=== PATIENT | female | born 1965 | race African-American/Black ===

== ENCOUNTER 2016-06-20 07:01 | Emergency (ER) | payer OTHER ==
[2016-06-20 07:07] VITALS: PULSE 66; TEMP 97.7
[2016-06-20] MEDS ORDERED: KETOROLAC TROMETHAMINE 60 MG/2 ML VIAL IM ONE (07:41)
[2016-06-20] MEDS ORDERED: KETOROLAC TROMETHAMINE 60 MG/2 ML VIAL ONE (07:47)
--- NOTE | 2016-06-20 07:57 | PDOC ---
History of Present Illness - General Chief Complaint: Pain Stated Complaint: FALL Time Seen by Provider: 06/20/16 07:28 History Source: Patient Exam Limitations: No Limitations - History of Present Illness Initial Comments: 06/20/16 07:50 50-year-old female presents to the ED status post mechanical fall yesterday while at [employer]. Patient states was walking when she had slipped on the skin of the great toe on the floor causing her to fall on her right side. Patient states landed on her hip along with her back and now complaining of hip and knee pain. Patient states is able to ambulate but with difficulty and has not taking anything for the pain. Patient denies previous injury to the affected area, radiation of pain, back pain, chest pain, dizziness or nausea. Patient also denies any difficulty with urination or bowel movements. Occurred: reports: yesterday Severity: reports: moderate Pain Location: reports: lower extremity Method of Injury: Yes: fall Loss of Consciousness: no loss of consciousness Associated Symptoms (Fall): trouble walking Past History - Past Medical History Allergies/Adverse Reactions: Allergies Allergy/AdvReac Type Severity Reaction Status Date / Time codeine [Codeine] Allergy Mild Itching Verified 06/20/16 07:05 POWDER GLOVES Allergy Intermediate Rash Uncoded 06/20/16 07:05 Home Medications: Ambulatory Orders Bismuth/Metronid/Tetracycline [Pylera Capsule] 3 cap PO QID 09/11/15 Nitrofurantoin Monohyd/M-Cryst [Macrobid -] 100 mg PO BID #14 capsule 09/11/15 Anemia: Yes Asthma: No Cancer: Yes (BILATERAL BREAST CA WITH IMPLANTS) Cardiac Disorders: No CVA: No COPD: No CHF: No Dementia: No Diabetes: No GI Disorders: Yes (ACID REFLUX) Disorders: No HTN: No Hypercholesterolemia: No Liver Disease: No Seizures: No Thyroid Disease: No - Surgical History Abdominal Surgery: Yes (HERNIA REPAIR) Appendectomy: No Cardiac Surgery: No Cholecystectomy: No Lung Surgery: No Neurologic Surgery: No Orthopedic Surgery: Yes (ARTHROSCOPY RIGHT KNEE) - Reproductive History Cervical CA: No Dysfunctional Uterine Bleeding: No Ectopic : No Endometrial CA: No Polycystic Ovaries: No Therapeutic (s) & number: No Tubal Ligation: No - Immunization History Immunization Up to Date: Yes - Psycho/Social/Smoking Cessation Hx Anxiety: No Suicidal Ideation: No Smoking Status: No Smoking History: Never smoked Have you smoked in the past 12 months: No Number of Cigarettes Smoked Daily: 0 Information on smoking cessation initiated: No Hx Alcohol Use: No Drug/Substance Use Hx: No Substance Use Type: None Hx Substance Use Treatment: No Patient Lives Alone: No Trauma Specific PMHX - Complaint Specific PMHX Arthritis: No Back Injury: No Neck Injury: No Hx Sacro Iliac Joint Dysfunction: No Review of Systems - Review of Systems Able to Perform ROS?: Yes Constitutional: No: Symptoms Reported Musculoskeletal: Yes: Joint Pain. No: Joint Swelling Integumentary: No: Symptoms Reported Neurological: No: Symptoms reported Endocrine: No: Symptoms Reported Hematologic/Lymphatic: No: Symptoms Reported *Physical Exam - Vital Signs Last Vital Signs Temp Pulse Resp BP Pulse Ox 97.7 F 66 18 111/69 100 06/20/16 07:05 06/20/16 07:05 06/20/16 07:05 06/20/16 07:05 06/20/16 07:05 - Physical Exam General Appearance: Yes: Nourished, Appropriately Dressed. No: Apparent Distress Neck: negative: Tender, Supple, Decreased range of motion Gastrointestinal/Abdominal: positive: Soft. negative: Tenderness Musculoskeletal: negative: Vertebral Tenderness Extremity: positive: Normal Inspection, Normal Range of Motion, Tender (lateral aspect ofhip and anterior pelvis. Full mobility of right knee with no crepitus or deformity) Integumentary: positive: Warm, Moist, Ecchymosis (over right hip and right knee) Neurologic: positive: Motor Strength 5/5 (ambulatory) ED Treatment Course - RADIOLOGY Radiology Studies Ordered: Category Date Time Status HIP & PELVIS-RIGHT [RAD] Stat Radiology 06/20/16 07:42 Ordered Medical Decision Making - Medical Decision Making 06/20/16 08:04 Patient is status post mechanical fall complaining of right hip pain along with right knee pain. Patient exam at tenderness to the right hip with difficulty performing straight leg raise. Patient ordered for hip and pelvis x-ray of the right side. Patient also ordered for Toradol IM. 06/20/16 09:20 X-ray of the hip and pelvis negative for acute findings. Patient likely sustained a strain secondary to a fall and recommend taking Motrin 600 mg every 8 hours for discomfort and apply ice to the affected area for the next 72 hours. *DC/Admit/Observation/Transfer Diagnosis at time of Disposition: Muscle strain - Discharge Dispostion Disposition: HOME Condition at time of disposition: Good - Patient Instructions Printed Discharge Instructions: DI for Groin Strain Additional Instructions: Please take Motrin or Tylenol for discomfort and apply ice to the affected area for the next 2-3 days . follow-up with your PCP as needed. - Post Discharge Activity Work/School Note: Back to Work
[2016-06-20 09:47] VITALS: BP 110/70
== END 2016-06-20 09:45 | disposition home or self-care (01) ==
LOC: JER 07:01
PROC: 3E0233Z Introduction of Anti-inflammatory into Muscle, Percutaneous Approach (ICD-10-PCS; principal; 2016-06-20)
DX: S39.013A Strain of muscle, fascia and tendon of pelvis, initial encounter (principal); W01.0XXA Fall on same level from slipping, tripping and stumbling without subsequent striking against object, initial encounter; Z91.81 History of falling; Y93.89 Activity, other specified; Y92.512 Supermarket, store or market as the place of occurrence of the external cause; Y99.8 Other external cause status; Z85.3 Personal history of malignant neoplasm of breast; D64.9 Anemia, unspecified
CPT/HCPCS: 73523-TC; 99282-25

== ENCOUNTER 2016-07-18 09:23 | Emergency (ER) | payer OTHER ==
[2016-07-18 09:30] VITALS: BP 116/64; PULSE 69; TEMP 98.2; BMI 29.7
--- NOTE | 2016-07-18 10:36 | PDOC ---
History of Present Illness - General Chief Complaint: Pain Stated Complaint: EMPLOYEE, LT SIDE PAIN Time Seen by Provider: 07/18/16 09:57 History Source: Patient Exam Limitations: No Limitations - History of Present Illness Initial Comments: 07/18/16 10:29 Patient is here with complaints of left lower extremity pain. 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 Patient suffers from varicosities but has never been evaluated or treated for Occurred: reports: yesterday Severity: reports: mild Pain Location: reports: lower extremity (left lower extremity) Method of Injury: Yes: unknown Modifying Factors: improves with: None Loss of Consciousness: no loss of consciousness Associated Symptoms (Fall): denies symptoms Past History - Travel Traveled outside of the country in the last 30 days: No Close contact w/someone who was outside of country & ill: No - Past Medical History Allergies/Adverse Reactions: Allergies Allergy/AdvReac Type Severity Reaction Status Date / Time codeine [Codeine] Allergy Mild Itching Verified 07/18/16 09:27 POWDER GLOVES Allergy Intermediate Rash Uncoded 07/18/16 09:27 Home Medications: Ambulatory Orders NK [No Known Home Medication] 07/18/16 Anemia: Yes Asthma: No Cancer: Yes (BILATERAL BREAST CA WITH IMPLANTS) Cardiac Disorders: No CVA: No COPD: No CHF: No Dementia: No Diabetes: No GI Disorders: Yes (ACID REFLUX) Disorders: No HTN: No Hypercholesterolemia: No Liver Disease: No Seizures: No Thyroid Disease: No - Surgical History Abdominal Surgery: Yes (HERNIA REPAIR) Appendectomy: No Cardiac Surgery: No Cholecystectomy: No Lung Surgery: No Neurologic Surgery: No Orthopedic Surgery: Yes (ARTHROSCOPY RIGHT KNEE) - Reproductive History Cervical CA: No Dysfunctional Uterine Bleeding: No Ectopic : No Endometrial CA: No Polycystic Ovaries: No Therapeutic (s) & number: No Tubal Ligation: No - Immunization History Immunization Up to Date: Yes - Psycho/Social/Smoking Cessation Hx Anxiety: No Suicidal Ideation: No Smoking Status: No Smoking History: Never smoked Have you smoked in the past 12 months: No Number of Cigarettes Smoked Daily: 0 Information on smoking cessation initiated: No Hx Alcohol Use: No Drug/Substance Use Hx: No Substance Use Type: None Hx Substance Use Treatment: No Trauma Specific PMHX - Complaint Specific PMHX Arthritis: No Back Injury: No Neck Injury: No Hx Sacro Iliac Joint Dysfunction: No Review of Systems - Review of Systems Able to Perform ROS?: Yes Is the patient limited Palauan proficient: Yes Constitutional: Yes: See HPI. No: Symptoms Reported, Fever, Malaise, Weakness HEENTM: Yes: See HPI. No: Symptoms Reported Respiratory: Yes: See HPI. No: Symptoms reported, Cough, Shortness of Breath, Wheezing Cardiac (ROS): Yes: See HPI. No: Symptoms Reported, Chest Pain Musculoskeletal: Yes: Symptoms Reported, See HPI, Muscle Pain. No: Joint Swelling, Muscle Weakness, Joint Stiffness Integumentary: Yes: Symptoms Reported, See HPI, Bruising (suffers from varicosities bilateral legs ) Neurological: No: Symptoms reported All Other Systems: Reviewed and Negative *Physical Exam - Vital Signs Last Vital Signs Temp Pulse Resp BP Pulse Ox 98.2 F 69 18 116/64 100 07/18/16 09:28 07/18/16 09:28 07/18/16 09:28 07/18/16 09:28 07/18/16 09:28 - Physical Exam General Appearance: Yes: Nourished, Appropriately Dressed. No: Apparent Distress HEENT: positive: STACY, Normal ENT Inspection, Normal Voice, TMs Normal, Pharynx Normal Neck: positive: Supple. negative: Tender Respiratory/Chest: positive: Lungs Clear, Normal Breath Sounds Gastrointestinal/Abdominal: positive: Soft Extremity: positive: Normal Capillary Refill, Normal Inspection, Normal Range of Motion. negative: Tender Integumentary: positive: Normal Color, Warm, Bruising (10cm2 bruise with hematoma to lateral aspect of the left upper calf. Negative muscle belly pain, full range of motion to foot, ambulatory without unsteadiness or tenderness. Vascular intact to foot. Multiple areas of cording and torturous varicosities to bilateral legs past his knees) Neurologic: positive: respiratory care assistant II-XII NML intact, Fully Oriented, Alert, Normal Mood/ Affect, Normal Response, Motor Strength 5/5 *DC/Admit/Observation/Transfer Diagnosis at time of Disposition: Varicose veins of legs - Discharge Dispostion Disposition: HOME Condition at time of disposition: Stable Admit: No - Referrals Referrals: Kadeem Cohen MD [Primary Care Provider] - Jian Taveras MD [Staff Physician] - - Patient Instructions Printed Discharge Instructions: Chronic Venous Insufficiency Additional Instructions: Rest, ice to area on and off for 15 minutes 4-6 times a day Avoid heavy lifting or exercise until pain and swelling is resolved or until further directed Keep area highly elevated to reduce swelling Use splints/Chin wrap as directed Followup with orthopedist in one to 2 days if not improving, if significantly improved may wait one week for followup with orthopedist May use ibuprofen 2-200 mg tablets every 6 hours as needed for pain - Post Discharge Activity Work/School Note: Back to Work
== END 2016-07-18 10:43 | disposition home or self-care (01) ==
LOC: JERFT 09:23
DX: I83.812 Varicose veins of left lower extremity with pain (principal); Z85.3 Personal history of malignant neoplasm of breast; K21.9 Gastro-esophageal reflux disease without esophagitis
CPT/HCPCS: 99281-25

== ENCOUNTER 2016-08-23 08:29 | Emergency (ER) | payer OTHER ==
[2016-08-23 08:33] VITALS: BP 130/71; PULSE 63; TEMP 98; BMI 29.7
--- NOTE | 2016-08-23 09:12 | PDOC ---
History of Present Illness - General Chief Complaint: Pain Stated Complaint: LT FOOT PAIN Time Seen by Provider: 08/23/16 08:54 History Source: Patient Exam Limitations: No Limitations - History of Present Illness Initial Comments: 08/23/16 08:54 Patient is a 50-year-old female past medical history of breast cancer, who presents to the emergency department today complaining of left foot pain. Patient states that her pain began approximately 3 days ago. She states that when she walks she feels like her ankle is going to pop. She denies weakness, gait change. States that she has occasional pins and needles down to the foot. Denies trauma. 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 Past History - Travel Traveled outside of the country in the last 30 days: No Close contact w/someone who was outside of country & ill: No - Past Medical History Allergies/Adverse Reactions: Allergies Allergy/AdvReac Type Severity Reaction Status Date / Time codeine [Codeine] Allergy Mild Itching Verified 08/23/16 08:30 POWDER GLOVES Allergy Intermediate Rash Uncoded 08/23/16 08:30 Home Medications: Ambulatory Orders NK [No Known Home Medication] 07/18/16 Anemia: Yes Asthma: No Cancer: Yes (BILATERAL BREAST CA WITH IMPLANTS) Cardiac Disorders: No CVA: No COPD: No CHF: No Dementia: No Diabetes: No GI Disorders: Yes (ACID REFLUX) Disorders: No HTN: No Hypercholesterolemia: No Liver Disease: No Seizures: No Thyroid Disease: No Other medical history: VARICOSE VEINS - Surgical History Abdominal Surgery: Yes (HERNIA REPAIR) Appendectomy: No Cardiac Surgery: No Cholecystectomy: No Lung Surgery: No Neurologic Surgery: No Orthopedic Surgery: Yes (ARTHROSCOPY RIGHT KNEE) - Reproductive History Cervical CA: No Dysfunctional Uterine Bleeding: No Ectopic : No Endometrial CA: No Polycystic Ovaries: No Therapeutic (s) & number: No Tubal Ligation: No - Immunization History Immunization Up to Date: Yes - Psycho/Social/Smoking Cessation Hx Anxiety: No Suicidal Ideation: No Smoking Status: No Smoking History: Never smoked Have you smoked in the past 12 months: No Number of Cigarettes Smoked Daily: 0 Information on smoking cessation initiated: No Hx Alcohol Use: No Drug/Substance Use Hx: No Substance Use Type: None Hx Substance Use Treatment: No Review of Systems - Review of Systems Able to Perform ROS?: Yes Is the patient limited Korean proficient: No Constitutional: No: Chills, Fever, Weakness Musculoskeletal: Yes: Joint Pain, Joint Swelling. No: Muscle Pain, Muscle Weakness Integumentary: No: Bruising, Erythema, Rash Neurological: Yes: Numbness, Tingling. No: Weakness, Unsteady Gait All Other Systems: Reviewed and Negative *Physical Exam - Vital Signs Last Vital Signs Temp Pulse Resp BP Pulse Ox 98.0 F 63 18 130/71 100 08/23/16 08:30 08/23/16 08:30 08/23/16 08:30 08/23/16 08:30 08/23/16 08:30 - Physical Exam General Appearance: Yes: Nourished, Appropriately Dressed, Other (Sitting on exam bed, breathing easily). No: Apparent Distress Vascular Pulses: Dorsalis-Pedis (R): 2+, Doralis-Pedis (L): 2+ Musculoskeletal: negative: Decreased Range of Motion, Muscle Spasm Extremity: positive: Normal Capillary Refill, Normal Range of Motion, Tender ( TTP over L achilled tendon just proximal to the heel and medial malleolus. Rosa test intact. ), Swelling (mild swelling over the L achilles tendon proximal to the heel), Other (Gross sensation intact. Pt. walking with limp favoring R foot.). negative: Pedal Edema, Erythema Neurologic: positive: digital operations analyst II-XII NML intact, Fully Oriented, Alert, Normal Mood/ Affect, Normal Response, Motor Strength 5/5 Deep Tendon Reflexes: Ankle (L): 2+, Ankle (R): 2+ Medical Decision Making - Medical Decision Making 08/23/16 08:42 Patient is a 50-year-old female who presents with left ankle pain . Given lack of trauma this most likely seems to be a Achilles tendinitis. However given her tenderness to palpation we'll order an ankle x-ray to rule out fracture. 08/23/16 09:26 X-rays negative for fracture. 08/23/16 09:38 We will discharge home at this time. Patient is to wear Chin wrap on affected ankle for support. She is to ice and elevate her ankle when she is resting. Patient is to follow-up with orthopedics within the week. She is also to take ibuprofen as needed for pain. Patient understands all discharge instructions and all questions were answered at this time *DC/Admit/Observation/Transfer Diagnosis at time of Disposition: Achilles tendinitis of left lower extremity - Discharge Dispostion Disposition: HOME Condition at time of disposition: Good Admit: No - Referrals Referrals: Kadeem Cohen MD [Primary Care Provider] - Bruce Sahni MD [Staff Physician] - - Patient Instructions Printed Discharge Instructions: DI for Achilles Tendinopathy Additional Instructions: Your x-ray today was negative for broken bones or sprains. You most likely have achilles tendonitis. Keep your ankle wrapped in an CHIN wrap and elevate your leg above your heart when you are resting. You may ice the area for 20 minute periods to reduce the swelling. Take ibuprofen for the inflammation and pain not to exceed 3g per day. Follow up with orthopedics by the end of the week. There is a referral in the discharge packet. Return to the ED if you have worsening pain, numbness or tingling, cannot walk, or have any changes in your symptoms. - Post Discharge Activity Work/School Note: Back to Work
== END 2016-08-23 09:40 | disposition home or self-care (01) ==
LOC: JERFT 08:29
DX: M76.62 Achilles tendinitis, left leg (principal); Z85.3 Personal history of malignant neoplasm of breast
CPT/HCPCS: 73610-TC-LT; 73630-TC-LT; 99281-25

== ENCOUNTER 2016-09-23 09:00 | Emergency (ER) | payer OTHER ==
[2016-09-23 09:05] VITALS: BMI 30.5
[2016-09-23] MEDS ORDERED: ACETAMINOPHEN 325 MG TABLET (FP) PO ONE (09:34)
[2016-09-23] MEDS ORDERED: SODIUM CHLORIDE 1,000 ML IV STA (09:34)
--- NOTE | 2016-09-23 09:38 | PDOC ---
History of Present Illness - General History Source: Patient Exam Limitations: No Limitations <Vincent Bartlett - Last Filed: 09/23/16 11:30> - History of Present Illness Initial Comments: 09/23/16 11:30 The patient is a 50 year old female with a distant history of breast cancer status post bilateral mastectomy,( last radiation 5 years ago currently in remission ) presents with cough for 2 days. Patient reports body aches, chills and tactile fevers. Patient also reports a greenish productive cough. Patient has taken DayQuil with little relief. Patient denies chest pain or shortness of breath. Denies sick contacts or recent travels. <Higinio Ray - Last Filed: 09/23/16 11:34> - General Chief Complaint: Lightheaded Stated Complaint: DIZZINESS Time Seen by Provider: 09/23/16 09:26 Past History - Past Medical History Anemia: Yes Asthma: No Cancer: Yes (BILATERAL BREAST CA WITH IMPLANTS) Cardiac Disorders: No CVA: No COPD: No CHF: No Dementia: No Diabetes: No GI Disorders: Yes (ACID REFLUX) Disorders: No HTN: No Hypercholesterolemia: No Liver Disease: No Seizures: No Thyroid Disease: No - Surgical History Abdominal Surgery: Yes (HERNIA REPAIR) Appendectomy: No Cardiac Surgery: No Cholecystectomy: No Lung Surgery: No Neurologic Surgery: No Orthopedic Surgery: Yes (ARTHROSCOPY RIGHT KNEE) - Reproductive History Cervical CA: No Dysfunctional Uterine Bleeding: No Ectopic : No Endometrial CA: No Polycystic Ovaries: No Therapeutic (s) & number: No Tubal Ligation: No - Immunization History Immunization Up to Date: Yes - Psycho/Social/Smoking Cessation Hx Anxiety: No Suicidal Ideation: No Smoking Status: No Smoking History: Never smoked Have you smoked in the past 12 months: No Number of Cigarettes Smoked Daily: 0 Hx Alcohol Use: No Drug/Substance Use Hx: No Substance Use Type: None Hx Substance Use Treatment: No <Vincent Bartlett - Last Filed: 09/23/16 11:30> <Higinio Ray - Last Filed: 09/23/16 11:34> - Past Medical History Allergies/Adverse Reactions: Allergies Allergy/AdvReac Type Severity Reaction Status Date / Time codeine [Codeine] Allergy Mild Itching Verified 09/23/16 09:01 POWDER GLOVES Allergy Intermediate Rash Uncoded 09/23/16 09:01 Home Medications: Ambulatory Orders Acetaminophen [Tylenol] 650 mg PO Q4H PRN #20 tablet 09/23/16 Review of Systems - Review of Systems Able to Perform ROS?: Yes Comments:: 09/23/16 11:32 GENERAL/CONSTITUTIONAL: Yes Fever and chills, general body aches. No weakness. HEAD, EYES, EARS, NOSE AND THROAT: No change in vision. No ear pain or discharge. No sore throat. CARDIOVASCULAR: No chest pain or shortness of breath. RESPIRATORY: Yes productive cough No wheezing, or hemoptysis. GASTROINTESTINAL: No nausea, vomiting, diarrhea or constipation. GENITOURINARY: No dysuria, frequency, or change in urination. MUSCULOSKELETAL: No joint or muscle swelling or pain. No neck or back pain. SKIN: No rash NEUROLOGIC: No headache, vertigo, loss of consciousness, or change in strength/ sensation. ENDOCRINE: No increased thirst. No abnormal weight change. HEMATOLOGIC/LYMPHATIC: No anemia, easy bleeding, or history of blood clots. ALLERGIC/IMMUNOLOGIC: No hives or skin allergy. <Higinio Ray - Last Filed: 09/23/16 11:34> *Physical Exam - Vital Signs Last Vital Signs Temp Pulse Resp BP Pulse Ox 97.9 F 61 19 125/75 100 09/23/16 09:02 09/23/16 09:02 09/23/16 09:02 09/23/16 09:02 09/23/16 09:02 <Vincent Bartlett - Last Filed: 09/23/16 11:30> - Vital Signs Last Vital Signs Temp Pulse Resp BP Pulse Ox 97.9 F 61 19 125/75 100 09/23/16 09:02 09/23/16 09:02 09/23/16 09:02 09/23/16 09:02 09/23/16 09:02 - Physical Exam Comments: 09/23/16 09:38 GENERAL: Awake, alert, and fully oriented, in no acute distress HEAD: No signs of trauma EYES: PERRLA, EOMI, sclera anicteric, conjunctiva clear ENT: Auricles normal inspection, hearing grossly normal, nares patent, oropharynx clear without exudates. Moist mucosa NECK: Normal ROM, supple, no lymphadenopathy, JVD, or masses LUNGS: Breath sounds equal, clear to auscultation bilaterally. No wheezes, and no crackles HEART: Regular rate and rhythm, normal S1 and S2, no murmurs, rubs or gallops ABDOMEN: Soft, nontender, normoactive bowel sounds. No guarding, no rebound. No masses EXTREMITIES: Normal range of motion, no edema. No clubbing or cyanosis. No cords, erythema, or tenderness NEUROLOGICAL: Cranial nerves II through XII grossly intact. Normal speech, normal gait SKIN: Warm, Dry, normal turgor, no rashes or lesions noted. <Higinio Ray - Last Filed: 09/23/16 11:34> ED Treatment Course - LABORATORY CBC & Chemistry Diagram: 09/23/16 10:32 09/23/16 10:32 - RADIOLOGY Radiology Studies Ordered: Category Date Time Status CHEST PA & LAT [RAD] Stat Radiology 09/23/16 09:34 Ordered <Vincent Bartlett - Last Filed: 09/23/16 11:30> - LABORATORY CBC & Chemistry Diagram: 09/23/16 10:32 09/23/16 10:32 - RADIOLOGY Radiology Studies Ordered: 09/23/16 10:53 CHEST X RAY PA & LAT Impression: No active disease in the chest Reported by Adal Mckeon <Higinio Ray - Last Filed: 09/23/16 11:34> Medical Decision Making - Medical Decision Making 09/23/16 09:36 A portion of this note was documented by scribe services under my direction. I have reviewed the details of the note, within reason, and agree with the documentation with the following case summary and management plan written by me. Patient treated in the ED. Nursing notes are reviewed and incorporated into the medical decision-making. Vital signs reviewed. Peripheral IV access obtained by the nurse, laboratory studies are drawn and sent, reviewed and interpreted by myself. Vital Signs Temp Pulse Resp BP Pulse Ox 97.9 F 61 19 125/75 100 09/23/16 09:02 09/23/16 09:02 09/23/16 09:02 09/23/16 09:02 09/23/16 09:02 50-year-old female with a distant history of breast cancer status post bilateral mastectomy, last radiation 5 years ago, currently in remission presents with cough for 2 days. Denies sick contacts or recent travels. Patient reports body aches, chills and tactile fevers area reports a greenish productive cough but denies chest pain or shortness of breath. Patient has taken DayQuil with little relief. Came into the ED for further evaluation. I suspect this is likely viral syndrome. The patient overall is nontoxic appearing. However, we'll obtain a chest x-ray to rule out pneumonia and blood work to evaluate for elevated white count. IV fluids and reassess. 09/23/16 11:27 Chest xray reviewed. No acute findings. CBC, BMP 09/23/16 10:32 09/23/16 10:32 CMP hemolyzed. But do not need another specimen. WBC WNL. Likely viral syndrome. Supportive care Follow up with PMD. Pt agrees with plan. I discussed the physical exam findings, ancillary test results and final diagnoses with the patient. I answered all of the patient's questions. The patient was satisfied with the care received and felt comfortable with the discharge plan and treatment plan. The patient will call their primary care physician within 24 hours to arrange follow-up and will return to the Emergency Department with any new, persistant or worsening symptoms. <Vincent Bartlett - Last Filed: 09/23/16 11:30> - Medical Decision Making 09/23/16 11:31 Documentation prepared by Higinio Ray, acting as medical billing coder for Vincent Bartlett MD <Higinio Ray - Last Filed: 09/23/16 11:34> *DC/Admit/Observation/Transfer - Discharge Dispostion Admit: No <Vincent Bartlett - Last Filed: 09/23/16 11:30> - Attestations Scribe Attestion: 09/23/16 09:38 Documentation prepared by Higinio Ray, acting as medical billing coder for Vincent Bartlett MD <Higinio Ray - Last Filed: 09/23/16 11:34> Diagnosis at time of Disposition: Viral syndrome - Discharge Dispostion Disposition: HOME Condition at time of disposition: Stable - Prescriptions Prescriptions: Acetaminophen [Tylenol] 650 mg PO Q4H PRN #20 tablet PRN Reason: Pain/Fever - Referrals Referrals: Kadeem Cohen MD [Primary Care Provider] - - Patient Instructions Printed Discharge Instructions: DI for Viral Syndrome Additional Instructions: Your chest xray reviewed. No evidence of Pneumonia. Drink plenty of fluids and rest. Take 650 mg tylenol every 4 hours as needed for pain/fever. Follow up with your doctor.
[2016-09-23] MEDS ORDERED: ACETAMINOPHEN 325 MG TABLET (FP) ONE (10:08)
[2016-09-23 10:55] LABS: BASOPHIL 0.9 % (0-2.0); EOSINOPHIL 5.9 % (0-4.5); MCH 27.3 pg (25.7-33.7); MCHC 31.8 g/dl (32.0-36.0); MEAN CELL VOLUME 85.7 fl (80-96); MEAN PLT VOLUME 9.6 fl (7.5-11.1); NEUTROPHILS 45.1 % (42.8-82.8); PLATELET COUNT 229 K/MM3 (134-434); RDW 16.3 % (11.6-15.6); WHITE BLOOD COUNT 6.4 K/mm3 (4.0-10.0)
[2016-09-23 11:54] VITALS: BP 122/57; PULSE 59; TEMP 98
== END 2016-09-23 11:53 | disposition home or self-care (01) ==
LOC: JER 09:00
PROC: 3E0337Z Introduction of Electrolytic and Water Balance Substance into Peripheral Vein, Percutaneous Approach (ICD-10-PCS; principal; 2016-09-23)
DX: B34.9 Viral infection, unspecified (principal); Z85.3 Personal history of malignant neoplasm of breast; K21.9 Gastro-esophageal reflux disease without esophagitis; D64.9 Anemia, unspecified
CPT/HCPCS: 36415; 71020-TC; 85025; 99284-25

== ENCOUNTER 2016-11-24 09:43 | Emergency (ER) | payer OTHER ==
[2016-11-24 10:06] VITALS: TEMP 98; BMI 29.2
[2016-11-24] MEDS ORDERED: KETOROLAC TROMETHAMINE 30 MG/1 ML VIAL IVPUSH ONE (11:12)
[2016-11-24] MEDS ORDERED: SODIUM CHLORIDE 1,000 ML IV STA (11:12)
[2016-11-24] MEDS ORDERED: ONDANSETRON 4 MG/2 ML VIAL IVPUSH ONE (11:12)
[2016-11-24] MEDS ORDERED: ONDANSETRON 4 MG/2 ML VIAL ONE (11:31)
[2016-11-24] MEDS ORDERED: KETOROLAC TROMETHAMINE 30 MG/1 ML VIAL ONE (11:31)
--- NOTE | 2016-11-24 11:42 | PDOC ---
History of Present Illness - General Chief Complaint: Lightheaded Stated Complaint: DIZZINESS Time Seen by Provider: 11/24/16 10:18 History Source: Patient Exam Limitations: No Limitations - History of Present Illness Initial Comments: 11/24/16 11:38 50-year-old female presents to the emergency room with complaints of lightheadedness, nausea, upper abdominal pain, and chills. Patient denies history of gallbladder disease, renal colic, pancreatitis, or recent illness. Patient denies headache presently although she had mentioned headache in triage. Patient states it was more lightheadedness while she was sitting down at the table eating a snack. Patient denies visual changes, chest pain, shortness of breath, lower abdominal pain, dysuria, bowel complaints, or lower extremity edema. Timing/Duration: changing over time Severity: moderate Associated Symptoms: reports: denies symptoms, fever/chills, nausea/vomiting. 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) Cardiac Disorders: No CVA: No COPD: No CHF: No Dementia: No Diabetes: No GI Disorders: Yes (ACID REFLUX) Disorders: No HTN: No Hypercholesterolemia: No Liver Disease: No Seizures: No Thyroid Disease: No - Surgical History Abdominal Surgery: Yes (BILATERAL INGUNIAL HERNIA REPAIR) Appendectomy: No Cardiac Surgery: No Cholecystectomy: No Lung Surgery: No Neurologic Surgery: No Orthopedic Surgery: Yes (ARTHROSCOPY RIGHT KNEE) - Reproductive History Cervical CA: No Dysfunctional Uterine Bleeding: No Ectopic : No Endometrial CA: No Polycystic Ovaries: No Therapeutic (s) & number: No Tubal Ligation: No - Immunization History Immunization Up to Date: Yes - Suicide/Smoking/Psychosocial Hx Smoking Status: No Smoking History: Former smoker Have you smoked in the past 12 months: No Number of Cigarettes Smoked Daily: 0 If you are a former smoker, when did you quit?: 6YRS Information on smoking cessation initiated: No Hx Alcohol Use: No Drug/Substance Use Hx: No Substance Use Type: None Hx Substance Use Treatment: No Patient Lives Alone: No Review of Systems - Review of Systems Able to Perform ROS?: Yes Constitutional: Yes: Chills. No: Fever, Loss of Appetite HEENTM: No: Symptoms Reported Respiratory: No: Symptoms reported Cardiac (ROS): Yes: Lightheadedness ABD/GI: Yes: Nausea, Abdominal cramping Neurological: Yes: Dizziness Endocrine: No: Symptoms Reported Hematologic/Lymphatic: No: Symptoms Reported *Physical Exam - Vital Signs Last Vital Signs Temp Pulse Resp BP Pulse Ox 98.0 F 57 L 16 134/75 100 11/24/16 10:01 11/24/16 10:01 11/24/16 10:01 11/24/16 10:01 11/24/16 10:31 - Physical Exam General Appearance: Yes: Nourished, Appropriately Dressed. No: Apparent Distress HEENT: positive: EOMI, STACY (2mm pinpoint), TMs Normal, Pharynx Normal. negative: Pale Conjunctivae Neck: positive: Supple Respiratory/Chest: positive: Lungs Clear, Normal Breath Sounds. negative: Respiratory Distress, Accessory Muscle Use Cardiovascular: positive: Regular Rhythm, Regular Rate. negative: Murmur Gastrointestinal/Abdominal: positive: Normal Bowel Sounds, Soft, Tenderness ( ruq. - murphys. ). negative: Distended, Guarding, Rebound, Mass Musculoskeletal: negative: CVA Tenderness Extremity: positive: Normal Capillary Refill Integumentary: positive: Normal Color, Warm, Moist Neurologic: positive: Motor Strength 5/5 (ambulatory) ED Treatment Course - LABORATORY CBC & Chemistry Diagram: 11/24/16 11:25 11/24/16 11:25 Medical Decision Making - Medical Decision Making 11/24/16 11:42 Patient here with complaints of initial lightheadedness while sitting down eating is not this morning followed by nausea and chills. Patient states now with nausea and right upper quadrant pain and on exam was tender to the right upper quadrant without positive Hutton sign or guarding. Patient ordered for labs including CBC, comp, lipase, urine and EKG accompanied with Protonix, Toradol, Zofran, and IV fluids. 11/24/16 14:15 11/24/16 13:16 Laboratory Tests 11/24/16 11/24/16 11:25 11:25 WBC 5.5 Hgb 12.4 Hct 39.1 Plt Count 197 Neutrophils % 70.9 D Sodium 141 Potassium 4.5 Chloride 107 Carbon Dioxide 26 Anion Gap 8 BUN 8 Creatinine 0.8 Creat Clearance w eGFR > 60 Random Glucose 67 L Calcium 9.5 Total Bilirubin 0.6 AST 29 D ALT 27 D Total Protein 8.6 H Laboratory Tests 11/24/16 11:25 Lipase 135 Patient states feeling much better with no complaints presently. Patient's thoracic spine negative for acute findings. Patient will be discharged home with recommendations to eat small frequent meals. She'll will be given a prescription for Zantac. *DC/Admit/Observation/Transfer Diagnosis at time of Disposition: Abdominal pain Qualifiers: Abdominal location: upper abdomen, unspecified Qualified Code(s): R10.10 - Upper abdominal pain, unspecified; R10.10 - Upper abdominal pain, unspecified - Discharge Dispostion Disposition: HOME Condition at time of disposition: Improved - Referrals Referrals: Kadeem Cohen MD [Primary Care Provider] - - Patient Instructions Printed Discharge Instructions: DI for Abdominal Pain-Adult Additional Instructions: At this time I recommend eating small frequent meals and taking Zantac as prescribed. I also recommend follow-up with your primary care physician notifying him of today's visit. If symptoms return or worsen please go to the nearest ER. - Post Discharge Activity Forms/Work/School Notes: Back to Work
[2016-11-24] MEDS ORDERED: PANTOPRAZOLE SODIUM 40 MG in SODIUM CHLORIDE 100 ML IVPB ONE (11:43)
[2016-11-24] MEDS ORDERED: PANTOPRAZOLE SODIUM 40 MG VIAL ONE (11:46)
[2016-11-24 11:53] LABS: BASOPHIL 0.8 % (0-2.0); EOSINOPHIL 3.4 % (0-4.5); MCH 27.3 pg (25.7-33.7); MCHC 31.7 g/dl (32.0-36.0); MEAN CELL VOLUME 86.2 fl (80-96); MEAN PLT VOLUME 9.1 fl (7.5-11.1); NEUTROPHILS 70.9 % (42.8-82.8); PLATELET COUNT 197 K/MM3 (134-434); RDW 16.2 % (11.6-15.6); WHITE BLOOD COUNT 5.5 K/mm3 (4.0-10.0)
[2016-11-24 11:57] LABS: URINE APPEARANCE CLEAR; URINE BILIRUBIN NEGATIVE (NEGATIVE); URINE BLOOD NEGATIVE (NEGATIVE); URINE COLOR COLORLESS; URINE GLUCOSE (UA) NEGATIVE (NEGATIVE); URINE KETONE NEGATIVE (NEGATIVE); URINE NITRITE NEGATIVE (NEGATIVE); URINE PROTEIN NEGATIVE (NEGATIVE); URINE UROBILINOGEN NEGATIVE mg/dL (0.2-1.0)
[2016-11-24 12:43] LABS: ALBUMIN 3.8 g/dl (3.4-5.0); ANION GAP 8 (8-16); BILIRUBIN,TOTAL 0.6 mg/dL (0.2-1.0); CALCIUM 9.5 mg/dL (8.5-10.1); CO2 26 mmol/L (21-32); CREATININE 0.8 mg/dL (0.55-1.02); GLUCOSE,RANDOM 67 mg/dL (74-106); SGPT/ALT 27 U/L (12-78); TOT PROT 8.6 g/dl (6.4-8.2)
[2016-11-24 12:44] LABS: ALK PHOS 76 U/L (45-117)
[2016-11-24 12:46] LABS: SGOT/AST 29 U/L (15-37)
--- NOTE | 2016-11-24 14:04 | PDOC ---
*Physical Exam - Vital Signs Last Vital Signs Temp Pulse Resp BP Pulse Ox 98.0 F 57 L 16 134/75 100 11/24/16 10:01 11/24/16 10:01 11/24/16 10:01 11/24/16 10:01 11/24/16 10:31 - Physical Exam General Appearance: Yes: Nourished, Appropriately Dressed HEENT: positive: Normal ENT Inspection Respiratory/Chest: positive: Lungs Clear, Normal Breath Sounds. negative: Chest Tender Cardiovascular: positive: Regular Rhythm, Regular Rate, S1, S2 Gastrointestinal/Abdominal: positive: Normal Bowel Sounds, Flat, Soft, Other ( negativemurphy's no cva tenderness.). negative: Tender Musculoskeletal: positive: Normal Inspection. negative: CVA Tenderness Extremity: positive: Normal Capillary Refill, Normal Inspection Integumentary: positive: Normal Color, Dry, Warm Neurologic: positive: Alert, Normal Mood/Affect Heart Score/ECG Review #1 General ECG Interpretation: Sinus Rhythm, Normal Rate (52), Normal Intervals, No acute ischemic changes ED Treatment Course - LABORATORY CBC & Chemistry Diagram: 11/24/16 11:25 11/24/16 11:25 - ADDITIONAL ORDERS Additional order review: Laboratory Results 11/24/16 11/24/16 11/24/16 11:25 11:25 11:25 Sodium 141 Potassium 4.5 Chloride 107 Carbon Dioxide 26 Anion Gap 8 BUN 8 Creatinine 0.8 Creat Clearance w eGFR > 60 Random Glucose 67 L Calcium 9.5 Total Bilirubin 0.6 AST 29 D ALT 27 D Alkaline Phosphatase 76 D Total Protein 8.6 H Albumin 3.8 Lipase 135 Urine Color Colorless Urine Appearance Clear Urine pH 7.0 Urine Protein Negative Urine Glucose (UA) Negative Urine Ketones Negative Urine Blood Negative Urine Nitrite Negative Urine Bilirubin Negative Urine Urobilinogen Negative 11/24/16 11:25 RBC 4.53 MCV 86.2 MCHC 31.7 L RDW 16.2 H MPV 9.1 Neutrophils % 70.9 D Lymphocytes % 20.6 D Monocytes % 4.3 Eosinophils % 3.4 Basophils % 0.8 - Medications Given in the ED: ED Medications Discontinued Medications Generic Name Dose Route Start Last Admin Trade Name Freq PRN Reason Stop Dose Admin Sodium Chloride 1,000 mls @ 1,000 mls/hr 11/24/16 11:12 11/24/16 11:44 Normal Saline - IV 11/24/16 12:11 1,000 mls/hr ASDIR STA Administration Pantoprazole Sodium 40 mg/ 100 mls @ 200 mls/hr 11/24/16 11:43 11/24/16 11:52 Sodium Chloride IVPB 11/24/16 12:12 200 mls/hr ONCE ONE Administration Ketorolac Tromethamine 30 mg 11/24/16 11:12 11/24/16 11:44 Toradol Injection - IVPUSH 11/24/16 11:13 30 mg ONCE ONE Administration Ondansetron HCl 4 mg 11/24/16 11:12 11/24/16 11:45 Zofran Injection IVPUSH 11/24/16 11:13 4 mg ONCE ONE Administration Medical Decision Making - Medical Decision Making 11/24/16 14:02 50 yo F wit h/o gerd here with c/o epigastric pain, burning sensation, nuasea, and feeling lightheaded. no f/c no vomiting. no change to bm. started yesterday. has had in the past. no cp or sob. on exam awake alert lungs clear heart rrr nomrg. abd soft no tenderness. differential gerd,k pancreatitis. gastritis, uti. plan ua labs lipase. pt seen and examined in conjunction with Cat Pruitt. agree with assessment and plan. 11/28/16 08:59 *DC/Admit/Observation/Transfer Diagnosis at time of Disposition: Abdominal pain - Discharge Dispostion Disposition: HOME Condition at time of disposition: Improved - Prescriptions Prescriptions: Ranitidine HCl [Zantac] 150 mg PO DAILY #30 tablet - Referrals Referrals: Kadeem Cohen MD [Primary Care Provider] - - Patient Instructions Printed Discharge Instructions: DI for Abdominal Pain-Adult Additional Instructions: At this time I recommend eating small frequent meals and taking Zantac as prescribed. I also recommend follow-up with your primary care physician notifying him of today's visit. If symptoms return or worsen please go to the nearest ER. - Post Discharge Activity Forms/Work/School Notes: Back to Work
[2016-11-24 14:42] VITALS: BP 142/68; PULSE 60
[2016-11-24 17:07] LABS: URINE LEUK ESTERASE Negative (NEGATIVE)
--- NOTE | 2016-11-25 09:16 | EKG ---
Test Reason : Blood Pressure : / mmHG Vent. Rate : 052 BPM Atrial Rate : 052 BPM P-R Int : 192 ms QRS Dur : 100 ms QT Int : 410 ms P-R-T Axes : 059 026 036 degrees QTc Int : 381 ms SINUS BRADYCARDIA WHEN COMPARED WITH ECG OF 11-SEP-2015 10:02, PREMATURE VENTRICULAR COMPLEXES ARE NO LONGER PRESENT Confirmed by MINNA BUTLER MD ([id number]) on 11/25/2016 9:16:17 AM Referred By: Confirmed By:MINNA BUTLER MD
== END 2016-11-24 14:45 | disposition home or self-care (01) ==
LOC: JER 09:43
PROC: 3E0333Z Introduction of Anti-inflammatory into Peripheral Vein, Percutaneous Approach (ICD-10-PCS; principal; 2016-11-24)
PROC: 3E033GC Introduction of Other Therapeutic Substance into Peripheral Vein, Percutaneous Approach (ICD-10-PCS; 2016-11-24)
PROC: 3E0337Z Introduction of Electrolytic and Water Balance Substance into Peripheral Vein, Percutaneous Approach (ICD-10-PCS; 2016-11-24)
DX: D64.9 Anemia, unspecified (principal); K21.9 Gastro-esophageal reflux disease without esophagitis; Z91.048 Other nonmedicinal substance allergy status; Z87.891 Personal history of nicotine dependence
CPT/HCPCS: 36415; 72070-TC; 80053; 81003; 83690; 85025; 93005; 93010; 99285-25

== ENCOUNTER 2016-12-28 05:02 | Day surgery (SDC) | payer OTHER ==
[2016-12-26 10:18] VITALS: BMI 29.7
--- NOTE | 2016-12-28 10:38 | HP ---
History & Physical Update - History History: Change (see notes) (Painful right second and fifth hammertoes Allergic to Codein) - Physical Physical: No Change (Contracted right second toes and fifth toes. Hyperkeratotic lesions right second distal interphalangeal joint and right fifth proximal interphalangeal joint. Hyperpigmentation and bursitis right second proximal interphalangeal joint.) - Assessment Assessment: No Change (Hammertoes right second and fifth toes) - Plan Plan: No Change (Arthroplasty right second proximal interphalangeal joint and distal interphalangeal joint and right fifth proximal interphalangeal joint. Please refer to primary care physician note for complete history and physical.)
[2016-12-28] MEDS ORDERED: ONDANSETRON 4 MG/2 ML VIAL IVPUSH PRN (11:04)
[2016-12-28] MEDS ORDERED: LACTATED RINGERS SOLUTION 1,000 ML IV SCH (11:15)
[2016-12-28] MEDS ORDERED: MIDAZOLAM HCL 2 MG/2 ML SINGLE DOSE VIAL ONE ×3 (11:30)
[2016-12-28] MEDS ORDERED: LIDOCAINE HCL 1%, 10 MG/ML (20ML VIAL) ONE (11:35)
[2016-12-28] MEDS ORDERED: ceFAZolin SODIUM 1 GM VIAL IVPB ONE (11:35)
[2016-12-28] MEDS ORDERED: PROPOFOL 20 ML ONE (11:36)
[2016-12-28] MEDS ORDERED: BUPIVACAINE HCL/PF 0.25% (2.5MG/ML) 10 ML VIAL IJ ONE (11:37)
[2016-12-28] MEDS ORDERED: ceFAZolin SODIUM 1 GM VIAL ONE (11:50)
[2016-12-28] MEDS ORDERED: DEXAMETHASONE SOD PHOSPHATE 4 MG/1 ML VIAL ONE (12:21)
[2016-12-28] MEDS ORDERED: BUPIVACAINE HCL/PF 0.25% (2.5MG/ML) 10 ML VIAL ONE (12:21)
[2016-12-28] MEDS ORDERED: DEXAMETHASONE SOD PHOSPHATE 4 MG/1 ML VIAL IVPUSH ONE ×2 (12:24→12:34)
--- NOTE | 2016-12-28 12:51 | OP ---
Operative Note - Note: Operative Date: 12/28/16 Pre-Operative Diagnosis: Right second and fifth hammertoes Operation: Arthroplasty right second proximal interphalangeal joint. Arthroplasty right second distal interphalangeal joint. Arthroplasty right fifth proximal interphalangeal joint. Findings: Bursitis and hyperkeratotic lesions over the joints. Surgeon: Alejandra Rahman Anesthesiologist/ORACLE [employer]EE DEVELOPER: Katia Quintanilla MD Anesthesia: MAC Specimens Removed: Head of right second proximal phalanx. Head of right second middle phalanx. Head of right fifth proximal phalanx. Estimated Blood Loss (mls): 1
[2016-12-28 14:46] VITALS: BP 116/65; PULSE 77; TEMP 97.9
--- NOTE | 2016-12-30 19:02 | PATH ---
Surgical Pathology Report Patient Name: ROWENA DE LEÓN [facility]. Rec. #: [id number] /Age/Gender: 1965 (Age: 51) / F Account: [id number] Location: [facility] Taken: 12/28/2016 Received: 12/28/2016 Reported: 12/30/2016 Physicians: Alejandra Rahman DPM Specimen(s) Received A: RIGHT MIDDLE PHALANX B: SECOND TOE PROXIMAL PHALANX C: 5TH TOE PROXIMAL PHALANX Clinical History Hammer toes Final Diagnosis A. PHALANX, RIGHT MIDDLE, ARTHROPLASTY: BONE WITH DEGENERATIVE CHANGES. B. PHALANX, RIGHT, SECOND TOE, PROXIMAL, ARTHROPLASTY BONE WITH DEGENERATIVE CHANGES. C. PHALANX, RIGHT, FIFTH TOE, PROXIMAL, ARTHROPLASTY BONE WITH DEGENERATIVE CHANGES. Electronically Signed Violet Mari M.D. Gross Description A. Received in formalin labeled "right middle phalanx," are 2 cox, irregular portions of bone measuring 0.8 x 0.3 x 0.2 cm and 0.8 x 0.5 x 0.4 cm. The larger portion of bone is bisected and the specimen is entirely submitted in one cassette, following decalcification. B. Received in formalin labeled "second toe proximal phalanx," is a 0.9 x 0.5 x 0.5 cm cox, irregular portion of bone. The specimen is bisected and entirely submitted in one cassette, following decalcification. C. Received in formalin labeled "fifth toe proximal phalanx," is a 0.8 x 0.6 x 0.5 cm cox, irregular portion of bone. The specimen is bisected and entirely submitted in one cassette, following decalcification. 12/29/201612/29/2016
--- NOTE | 2017-01-23 02:39 | OP ---
DATE OF OPERATION: 12/28/2016 SURGEON: Lilian Bañuelos DPM THROW OUT CLERK: None. ANESTHESIOLOGIST: Katia Quintanilla MD PREOPERATIVE DIAGNOSES: 1. Right 2nd hammertoe. 2. Right 5th hammertoe. POSTOPERATIVE DIAGNOSES: 1. Right 2nd hammertoe. 2. Right 5th hammertoe. OPERATION: 1. Arthroplasty of distal interphalangeal joint of the right 2nd toe. 2. Arthroplasty of the proximal interphalangeal joint of the right 2nd toe. 3. Arthroplasty of the proximal interphalangeal joint of the right 5th toe. ANESTHESIA: Local with IV sedation. HEMOSTASIS: Pneumatic ankle tourniquet. ESTIMATED BLOOD LOSS: 1 mL MATERIALS: None. PATHOLOGY: Bone. COMPLICATIONS: None. OPERATIVE PROCEDURE: The patient was brought to the operating room and placed on the operating table in the supine position. A pneumatic ankle tourniquet was then placed on the patient's right ankle. Following IV sedation, local anesthesia was obtained using a 1:1 mixture of 1% lidocaine plain and 0.25% Marcaine plain. Following this, the foot was then scrubbed, prepped, and draped in the usual aseptic manner. An Esmarch bandage was then utilized to exsanguinate the patient's right foot and the tourniquet was inflated. Attention was directed to the 2nd digit where a 2-cm linear longitudinal incision was made over the dorsal aspect of the proximal interphalangeal joint of the digit. The incision was then deepened through the subcutaneous tissues with care to retract all neurovascular structures. All bleeders were cauterized and ligated. A transverse tenotomy and capsulotomy was performed to the proximal interphalangeal joint of the 2nd digit of the right foot. The head of the proximal phalanx was then freed of its soft tissue attachments. A double-action bone cutter was then used to resect the head of the proximal phalanx and was then passed from the operating room table. The phalanx was then smoothed of its rough edges with a bone rasp. The wound was then flushed with copious amounts of sterile saline and the extensor tendon was reapproximated with 4-0 Vicryl. Attention was then directed to the dorsal aspect of the 2nd digit of the distal interphalangeal joint. A 1-cm transverse linear incision was then made over the distal interphalangeal joint of the digit. The incision was then taken through the subcutaneous tissues with care to retract all neurovascular structures. All bleeders were cauterized and ligated. Transverse tenotomy and capsulotomy were performed to the distal interphalangeal joint of the 2nd digit of the right foot. The head of the middle phalanx was then freed of its soft tissue attachment. A double-action bone cutter was then used to resect the head of the middle phalanx and was then passed from the operating room table. The phalanx was then smoothed of its rough edges with a bone rasp. The wound was then flushed with copious amounts of sterile saline and the extensor tendon was reapproximated with 4-0 Vicryl. The skin was reapproximated with 4-0 Nylon over the distal and proximal interphalangeal joints. At this point, attention was then directed to the right 5th digit where 2 converging 2-cm semi-elliptical incisions were made over the proximal interphalangeal joint of the right 5th toe. The incision was deepened and the skin was removed. The incision was then deepened to the subcutaneous tissues with care to retract all vital neurovascular structures. All bleeders were cauterized. Transverse tenotomy and capsulotomy were performed to the proximal interphalangeal joint of the 5th digit of the right foot. The head of the proximal phalanx was then freed of its soft tissue attachment. A double-action bone cutter was then used to resect the head of the proximal phalanx, which was then passed from the operating room table. The phalanx was then smoothed of its rough edges with a bone rasp. The wound was flushed with copious amounts of sterile saline and the extensor tendon was reapproximated with 4-0 Vicryl. The skin was reapproximated using 4-0 nylon. On completion of the procedure, a total of 4-5 mL of a 1:4 mixture of Decadron and 0.5% Marcaine plain was infiltrated around the surgical site. The incisions were dressed with Betadine-soaked Adaptic and covered with sterile compressive dressing such as 4 x 4's and Blake. The tourniquet was then deflated and immediate hyperemia returned to all digits. The foot was then Chin wrapped. The patient tolerated the procedure well and was transferred to the recovery room with all vital signs stable and vascular status intact to the feet. Following postoperative management, the patient was discharged and given instructions and prescriptions, which were discussed prior to the surgery. LILIAN BAÑUELOS DPM [id number]
== END 2016-12-28 14:45 | disposition home or self-care (01) ==
LOC: JASU-SURG 05:02
PROVIDERS: ATTEND Podiatrist Foot Surgery
PROC: 0SRP0JZ Replacement of Right Toe Phalangeal Joint with Synthetic Substitute, Open Approach (ICD-10-PCS; principal; 2016-12-28 10:00)
DX: M20.41 Other hammer toe(s) (acquired), right foot (principal)
CPT/HCPCS: 73630-TC-RT; 84703; 88304-TC; 88311-TC; 94760; 97116-GP

== ENCOUNTER 2017-02-07 21:00 | Emergency (ER) | payer OTHER ==
[2017-02-07] MEDS ORDERED: ALBUTEROL SO4 0.083% IH SOL 2.5 MG/3 ML VIAL.NEB. NEB ONE (21:15)
--- NOTE | 2017-02-07 21:19 | PDOC ---
Rapid Medical Evaluation Chief Complaint: Respiratory Time Seen by Provider: 02/07/17 21:14 Medical Evaluation: Allergies Allergy/AdvReac Type Severity Reaction Status Date / Time codeine [Codeine] Allergy Mild Itching Verified 12/28/16 07:57 POWDER GLOVES Allergy Intermediate Rash Uncoded 12/28/16 07:57 02/07/17 21:15 51 year old female c/o cough and difficulty breath x 3 days." i feel like i have bronchitis." tactile tem[ps PE:Patient alert ox 3. clear breath sounds. Plan; albuterol, chest xray Patient to the ER for further management of care. 02/07/17 21:19 Discharge Disposition - Referrals Referrals: Kadeem Cohen MD [Primary Care Provider] - - Patient Instructions - Post Discharge Activity
[2017-02-07 21:23] VITALS: BP 126/73; PULSE 94; TEMP 99.5
[2017-02-07] MEDS ORDERED: IBUPROFEN 400 MG TABLET (FP) PO ONE ×2 (21:51→22:00)
[2017-02-07] MEDS ORDERED: ALBUTEROL SO4 2.5/IPRATROPIUM 0.5 INH SOL 3 ML VIAL.NEB. NEB ONE ×3 (21:51→22:23)
--- NOTE | 2017-02-07 22:10 | PDOC ---
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 The patient reports to feel congested. She reports a nonproductive cough. She describes the chest pain when coughing to feel like a pressure. Secondary to her symptoms she reports a sore throat and ear pain. She reports intermittent fevers. She reports using NyQuil, DayQuil, and Mucinex for her symptoms, without relief. She reports her symptoms have caused her to no be able to sleep. She denies recent chills or dizziness. She denies recent nausea, vomit, diarrhea or constipation. She denies recent dysuria, frequency, urgency or hematuria. She denies recent chest pain. Allergies: codeine, powder gloves Past surgical history: None reported. Social history: Nonsmoker. Denies EtOH use and recreational drug use. Primary Care Physician: Dr. Kadeem Cohen <Chris Oakes - Last Filed: 02/07/17 22:10> <Jennifer Westfall - Last Filed: 02/07/17 22:48> - General Chief Complaint: Cold Symptoms Stated Complaint: COUGH,PAIN Time Seen by Provider: 02/07/17 21:14 Past History <Chris Oakes - Last Filed: 02/07/17 22:10> - Past Medical History Anemia: Yes Asthma: Yes Cancer: Yes (BILATERAL BREAST CA WITH IMPLANTS 2010) Cardiac Disorders: No CVA: No COPD: Yes CHF: No Dementia: No Diabetes: No GI Disorders: Yes (ACID REFLUX) Disorders: No HTN: No Hypercholesterolemia: No Liver Disease: No Seizures: No Thyroid Disease: No - Surgical History Abdominal Surgery: Yes (BILATERAL INGUNIAL HERNIA REPAIR ~2011) Appendectomy: No Cardiac Surgery: No Cholecystectomy: No Lung Surgery: No Neurologic Surgery: No Orthopedic Surgery: Yes (r knee arthroscopy) - Reproductive History Cervical CA: No Dysfunctional Uterine Bleeding: No Ectopic : No Endometrial CA: No Polycystic Ovaries: No Therapeutic (s) & number: No Tubal Ligation: No - Immunization History Immunization Up to Date: Yes - Suicide/Smoking/Psychosocial Hx Smoking Status: No Smoking History: Former smoker Have you smoked in the past 12 months: No Number of Cigarettes Smoked Daily: 0 If you are a former smoker, when did you quit?: years ago Information on smoking cessation initiated: No Hx Alcohol Use: Yes (occasional) Drug/Substance Use Hx: No Substance Use Type: None Hx Substance Use Treatment: No <Jennifer Westfall - Last Filed: 02/07/17 22:48> - Past Medical History Allergies/Adverse Reactions: Allergies Allergy/AdvReac Type Severity Reaction Status Date / Time codeine [Codeine] Allergy Mild Itching Verified 02/07/17 21:16 POWDER GLOVES Allergy Intermediate Rash Uncoded 02/07/17 21:16 Home Medications: Ambulatory Orders Omeprazole 40 mg PO DAILY 12/26/16 Albuterol Sulfate Inhaler - [Ventolin HFA Inhaler -] 1 - 2 inh PO Q4H #1 inhaler 02/07/17 Azithromycin [Zithromax 250mg Tablets -] 250 mg PO UTDICT #6 tab 02/07/17 Ibuprofen [Motrin -] 600 mg PO TID 02/07/17 Prednisone [Deltasone -] 40 mg PO DAILY #10 tablet 02/07/17 Review of Systems - Review of Systems Able to Perform ROS?: Yes Comments:: 02/07/17 22:10 CONSTITUTIONAL: Present: +Fever +Congestion Absent: no chills, no fatigue EYES: Absent: visual changes ENT: Present: +ear pain + sore throat CARDIOVASCULAR: Absent: chest pain, no palpitations RESPIRATORY: Present: +Cough +SOB when coughing. +Chest pain when coughing GI: Absent: abdominal pain, no nausea, no vomiting, no constipation, no diarrhea GENITOURINARY: Absent: dysuria, no frequency, no hematuria MUSKULOSKELETAL: Present: +Back pain when coughing Absent: no arthralgia, no myalgia SKIN: Absent: rash NEURO: Present: +headache when coughing. All Other Systems: Reviewed and Negative <Chris Oakes - Last Filed: 02/07/17 22:10> *Physical Exam - Vital Signs Last Vital Signs Temp Pulse Resp BP Pulse Ox 99.5 F 94 H 20 126/73 98 02/07/17 21:16 02/07/17 21:16 02/07/17 21:16 02/07/17 21:16 02/07/17 21:16 - Physical Exam Comments: 02/07/17 22:11 GENERAL: Well-appearing, well-nourished. No apparent distress. HEENT: Right tympanic membrane retracted. Left tympanic membrane clear. Normocephalic, atraumatic. PERRL, EOM intact. CARDIOVASCULAR: Normal S1, S2. Regular rate and rhythm. PULMONARY: Clear diminished at bases. ABDOMEN: Soft, non-distended, non-tender. EXTREMITIES: Normal ROM in all four extremities. No gross deformities. SKIN: Warm, dry. No rash NEUROLOGICAL: No focal neurological deficits. <Chris Oakes - Last Filed: 02/07/17 22:10> - Vital Signs Last Vital Signs Temp Pulse Resp BP Pulse Ox 99.5 F 94 H 20 126/73 98 02/07/17 21:16 02/07/17 21:16 02/07/17 21:16 02/07/17 21:16 02/07/17 21:16 <Jennifer Westfall - Last Filed: 02/07/17 22:48> ED Treatment Course - Medications Given in the ED: ED Medications Discontinued Medications Generic Name Dose Route Start Last Admin Trade Name Freq PRN Reason Stop Dose Admin Albuterol/Ipratropium 1 amp 02/07/17 21:51 02/07/17 22:03 Duoneb - NEB 02/07/17 21:52 1 amp ONCE ONE Administration Ibuprofen 800 mg 02/07/17 21:51 02/07/17 22:03 Motrin - PO 02/07/17 21:52 800 mg ONCE ONE Administration <Chris Oakes - Last Filed: 02/07/17 22:10> - Medications Given in the ED: ED Medications Discontinued Medications Generic Name Dose Route Start Last Admin Trade Name Freq PRN Reason Stop Dose Admin Albuterol/Ipratropium 1 amp 02/07/17 21:51 02/07/17 22:03 Duoneb - NEB 02/07/17 21:52 1 amp ONCE ONE Administration Ibuprofen 800 mg 02/07/17 21:51 12/26/17 22:03 Motrin - PO 02/07/17 21:52 800 mg ONCE ONE Administration <JameelprimoJanna jerryecca - Last Filed: 02/07/17 22:48> *DC/Admit/Observation/Transfer - Attestations Scribe Attestion: 02/07/17 22:11 Documentation prepared by Chris Oakes, acting as medical office assistant instructor for Marshall Barrow MD. <Chris Oakes - Last Filed: 02/07/17 22:10> - Discharge Dispostion Admit: No <KhoiJennifer - Last Filed: 02/07/17 22:48> Diagnosis at time of Disposition: Pneumonia Qualifiers: Pneumonia type: due to unspecified organism Laterality: right Lung location: lower lobe of lung Qualified Code(s): J18.1 - Lobar pneumonia, unspecified organism - Discharge Dispostion Disposition: HOME Condition at time of disposition: Stable - Referrals Referrals: Kadeem Cohen MD [Primary Care Provider] - - Patient Instructions Printed Discharge Instructions: DI for Pneumonia -- Adult Additional Instructions: Your x-ray shows a right lower lobe pneumonia. You were prescribed a Z-Edwin. Please take the medication as prescribed. Your also prescribed an albuterol inhaler. You may use this every 4 hours as needed for your symptoms. Your also prescribed prednisone. Please follow the instructions as directed. You may take Tylenol or Motrin as needed for your fevers. Drink plenty of fluids. Please follow up with her primary care doctor within 2-3 days. Return to the emergency department if you have increasing shortness of breath, difficulty breathing, worsening fever, lightheadedness, dizziness, or any changes in your symptoms. - Post Discharge Activity Forms/Work/School Notes: Back to Work
== END 2017-02-07 22:55 | disposition home or self-care (01) ==
LOC: JERFT 21:00
PROC: 3E0F7GC Introduction of Other Therapeutic Substance into Respiratory Tract, Via Natural or Artificial Opening (ICD-10-PCS; principal; 2017-02-07)
PROC: 3E0F7GC Introduction of Other Therapeutic Substance into Respiratory Tract, Via Natural or Artificial Opening (ICD-10-PCS; 2017-02-07)
DX: J18.1 Lobar pneumonia, unspecified organism (principal); J44.9 Chronic obstructive pulmonary disease, unspecified; K21.9 Gastro-esophageal reflux disease without esophagitis; Z85.3 Personal history of malignant neoplasm of breast
CPT/HCPCS: 71020-TC; 99281-25

== ENCOUNTER 2017-04-03 06:44 | Day surgery (SDC) | payer OTHER ==
[2017-03-31 09:01] VITALS: BMI 30.9
[2017-04-03] MEDS ORDERED: LIDOCAINE HCL/PF 2% SDV 5ML VIAL ONE (07:46)
[2017-04-03] MEDS ORDERED: SUCCINYLCHOLINE CHLORIDE 200 MG/10 ML VIAL ONE (07:47)
[2017-04-03] MEDS ORDERED: PROPOFOL 20 ML ONE ×5 (07:47→09:19)
[2017-04-03] MEDS ORDERED: ePHEDrine SULFATE 50 MG/1 ML AMPULE ONE (07:47)
[2017-04-03] MEDS ORDERED: MIDAZOLAM HCL 2 MG/2 ML SINGLE DOSE VIAL ONE ×2 (08:56)
--- NOTE | 2017-04-03 09:20 | HP ---
Past Medical History - Primary Care Physician PCP:: Nick Chen - Admission Chief Complaint: Postmenopausal bleeding History of Present Illness: 51yo female presents for evaluation of postmenopausal spotting Bleeding after sex. Not sexually active x 8 months Prior ROBERT 04/06/2015, followed by normal PAP, D&C. 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: No: Alzheimer's, CVA, Dementia, Migraine, Multiple Sclerosis, Peripheral Neuropathy, Parkinson's, Seizure, Syncope, TIA, Vertigo, Other Cardiovascular: No: AFIB, Aneurysm, Aortic Insufficiency, Aortic Stenosis, CAD, CHF, Deep Vein Thrombosis, HTN, Hyperlipdemia, RI, Mitral Insufficiency, Mitral Stenosis, Murmur, Pulmonary Hypertension, Other Pulmonary: No: Asthma, Bronchitis, Cancer, COPD, O2 Dependent, Pneumonia, Previously Intubated, Pulmonary Embolus, Pulmonary Fibrosis, Sleep Apnea, Other Gastrointestinal: No: Ascites, Cancer, Constipation, Crohn's Disease, Diverticulitis, Diverticulosis, Esophageal Varices, Gastritis, GERD, GI Bleed, Hemorrhoids, Hiatal Hernia, Inflamatory Bowel Disease, Irritable Bowel Disease, Pancreatitis, Peptic Ulcer Disease, Ulcerative Colitis, Other Hepatobiliary: No: Cirrhosis, Cholelithiasis, Cholecystitis, Choledocholithiasis , Hepatitis A, Hepatitis B, Hepatitis C, Other Renal/: No: Renal Failure, Renal Inusuff, BPH, Cancer, Hematuria, Hemodialysis , Neurogenic Bladder, Renal Calculi, UTI, Other Reproductive: No: Ectopic , Endometriosis, Fibroids, PID, Polycystic Ovary Syndrome, Postmenopausal, Other ...Para: 3 Heme/Onc: No: Anemia, B12 Deficiency, Bleeding Disorder, Cancer, Current Chemotherapy, Current Radiation Therapy, Hemochromatosis, Hypercoaguable State, Myeloproliferative Synd, Sickle Cell Disease, Sickle Cell Trait, Thrombocytopenia, Other Infectious Disease: No: AIDS, C-Diff, Herpes Zoster, HIV, MRSA, STD's, Tuberculosis, VREF, Other Psych: No: Addictions, Anxiety, Bipolar, Depression, Panic, Psychosis, Schizophrenia, Other Musculoskeletal: No: Bursitis, Chronic low back pain, Hemiparesis, Hemiplegia, Osteoarthritis, Paraplegia, Other Rheumatology: No: Fibromyalgia, Gout, Lupus, Rheumatoid Arthritis, Sarcoidosis, Vasculitis, Other ENT: No: Allergic Rhinitis, Sinusitis, Other Endocrine: No: [place]'s Disease, [place]'s Disease, Diabetes Insipidus, Diabetes Mellitus, Hyperparathyroidism, Hyperthyroidism, Hypothyroidism, Osteopenia, SIADH, Other Dermatology: No: Basal Cell, Cellulitis, Eczema, Melanoma, Psoriasis, Squamous Cell, Other Additional Medical History: Breast cancer - Past Surgical History Past Surgical History: Yes: Hernia Repair (hiatal), Mastectomy (b/l) Hx Myomectomy: No Hx Transabdominal Cerclage: No Additional Surgical History: D&C - Smoking History Smoking history: Former smoker Have you smoked in the past 12 months: No Aproximately how many cigarettes per day: 0 If you are a former smoker, when did you quit?: 11YRS - Alcohol/Substance Use Hx Alcohol Use: Yes (occasional) History of Substance Use: reports: None - Social History ADL: Independent History of Recent Travel: No Home Medications - Allergies Allergies/Adverse Reactions: Allergies Allergy/AdvReac Type Severity Reaction Status Date / Time codeine [Codeine] Allergy Mild Itching Verified 03/31/17 09:01 POWDER GLOVES Allergy Intermediate Rash Uncoded 03/31/17 09:01 - Home Medications Home Medications: Ambulatory Orders Omeprazole 40 mg PO DAILY 12/26/16 Family Disease History - Family Disease History Family Disease History: Heart Disease: Mother (HTN) Review of Systems - Review of Systems Constitutional: reports: No Symptoms Eyes: reports: No Symptoms HENT: reports: No Symptoms Neck: reports: No Symptoms Cardiovascular: reports: No Symptoms Respiratory: reports: No Symptoms Gastrointestinal: reports: No Symptoms Genitourinary: reports: No Symptoms Breasts: reports: No Symptoms Reported Musculoskeletal: reports: No Symptoms Integumentary: reports: No Symptoms Neurological: reports: No Symptoms Endocrine: reports: No Symptoms Hematology/Lymphatic: reports: No Symptoms Psychiatric: reports: No Symptoms Pain Intensity: 0 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 Vital Signs: Vital Signs Temperature 98.1 F 04/03/17 07:09 Pulse Rate 53 L 04/03/17 07:09 Respiratory Rate 20 04/03/17 07:09 Blood Pressure 118/73 04/03/17 07:09 O2 Sat by Pulse Oximetry (%) 100 04/03/17 07:09 Constitutional: Yes: Well Nourished, No Distress, Calm Eyes: Yes: WNL, Conjunctiva Clear HENT: Yes: WNL, Atraumatic, Normocephalic Neck: Yes: WNL, Supple, Trachea Midline Cardiovascular: Yes: WNL, Regular Rate and Rhythm Respiratory: Yes: WNL, Regular, CTA Bilaterally Gastrointestinal: Yes: WNL, Normal Bowel Sounds, Soft ...Rectal Exam: Yes: Deferred Renal/: Yes: WNL Pelvis: Yes: WNL External Genitalia: Yes: Normal Internal Exam Deferred: No Vaginal Exam: Yes: Normal Cervix: Yes: Normal Uterus: Yes: Normal Adnexa: Normal: Left, Right Musculoskeletal: Yes: WNL Extremities: Yes: WNL Integumentary: Yes: WNL Neurological: Yes: WNL, Alert, Oriented ...Motor Strength: WNL Psychiatric: Yes: WNL, Alert, Oriented Imaging - Results Ultrasound: Report Reviewed Assessment/Plan 51yo P3 with PMB and personal Hx of breast cancer admitted for hysteroscopy, D&C . We had discussed the risks, benefits, alternatives of surgery at length including but not limited to infection, bleeding, scarring, perforation, hysterectomy, etc. The pt verbalized understanding and requested to proceed with surgery. I emphasized that all surgeries have risks and no guarantees can be provided
[2017-04-03] MEDS ORDERED: KETOROLAC TROMETHAMINE 30 MG/1 ML VIAL ONE (09:37)
--- NOTE | 2017-04-03 09:47 | OP ---
Operative Note - Note: Operative Date: 04/03/17 Pre-Operative Diagnosis: Postmenopausal bleeding, personal Hx of breast cancer Operation: Hysteroscopy, D&C Findings: Normal uterus, no lesions, atrophic uterine cavity Post-Operative Diagnosis: Same as Pre-op Surgeon: Nick Chen Anesthesiologist/SLAG MIXER: Pepito Keller Anesthesia: General Specimens Removed: Endometrial curettings Estimated Blood Loss (mls): 5 Drains, Volume Out (mls): 0 Blood Volume Replaced (mls): 0 Fluid Volume Replaced (mls): 400 Operative Report Dictated: Yes
--- NOTE | 2017-04-03 09:50 | DS ---
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 Vital Signs: Vital Signs Temperature 98.1 F 04/03/17 07:09 Pulse Rate 53 L 04/03/17 07:09 Respiratory Rate 20 04/03/17 07:09 Blood Pressure 118/73 04/03/17 07:09 O2 Sat by Pulse Oximetry (%) 100 04/03/17 07:09 Constitutional: Yes: Well Nourished, No Distress, Calm Eyes: Yes: WNL, Conjunctiva Clear HENT: Yes: WNL, Atraumatic, Normocephalic Neck: Yes: WNL, Supple, Trachea Midline Cardiovascular: Yes: WNL, Regular Rate and Rhythm Respiratory: Yes: WNL, Regular, CTA Bilaterally Gastrointestinal: Yes: WNL, Normal Bowel Sounds, Soft ...Rectal Exam: Yes: Deferred Renal/: Yes: WNL Pelvis: Yes: WNL External Genitalia: Yes: Normal Internal Exam Deferred: Yes Musculoskeletal: Yes: WNL Extremities: Yes: WNL Edema: No Integumentary: Yes: WNL Neurological: Yes: WNL, Alert, Oriented ...Motor Strength: WNL Psychiatric: Yes: WNL, Alert, Oriented Discharge Summary Reason For Visit: POST MENOPAUSAL BLEEDING Procedures: Principal: Hysteroscopy, D&C Condition: Good - Instructions Diet, Activity, Other Instructions: Dr. Nick Chen Lapping Machine Tender discharge instructions Physical activity Resume your normal everyday activity as tolerated no heavy lifting or exercise until seen by your surgeon. You may walk unlimited peyman of and climb stairs. You may resume driving the car when you feel safe and comfortable behind the wheel. No sexual activity as instructed by Dr. Chen. Wound care If you have a bandage, leave it on, and keep dry for 48-72 hours. After that time discard the outer bandage. If they are tapes on the skin under the out of bandage leave them in place. They will peel off in the next 7 to 10 days. Do Not Peel them off. You may shower the day after surgery. If there are tapes present on the skin, you may shower over them. Diet There are no dietary restrictions. Eat healthy, high-fiber foods. Drink 6 to 8 glasses of liquid each day. This will assist in keeping your bowels are regular. Pain management You may take Tylenol or acetaminophen or Ibuprofen (for example, Motrin, Advil etc.) from my pain prescription medication is ordered should be taken as prescribed for moderate to severe pain. Call Dr. Chen for any of the following: Severe pain not relieved by medication Fever of 101 or higher Excessive bleeding or drainage on dressing Inability to urinate Call the office at [phone] for an appointment in seven days. Referrals: Nick Chen MD [Staff Physician] - Disposition: HOME - Home Medications Comprehensive Discharge Medication List: Ambulatory Orders Omeprazole 40 mg PO DAILY 12/26/16
[2017-04-03] MEDS ORDERED: ONDANSETRON 4 MG/2 ML VIAL IVPUSH PRN (09:51)
[2017-04-03] MEDS ORDERED: oxyCODONE HCL 5 MG TABLET PO PRN (09:51)
[2017-04-03] MEDS ORDERED: PROMETHAZINE HCL 25 MG/1 ML VIAL IVPUSH PRN (09:51)
[2017-04-03] MEDS ORDERED: PANTOPRAZOLE 40 MG TABLET (FP) PO SCH (10:00)
[2017-04-03] MEDS ORDERED: LACTATED RINGERS SOLUTION 1,000 ML IV SCH (10:00)
[2017-04-03] MEDS ORDERED: GLYCOPYRROLATE 0.2 MG/1 ML VIAL ONE (11:25)
[2017-04-03 11:41] VITALS: BP 107/66; PULSE 56; TEMP 98.3
--- NOTE | 2017-04-03 19:29 | OP ---
DATE OF OPERATION: 04/03/2017 PREOPERATIVE DIAGNOSES: Postmenopausal bleeding, personal history of breast cancer. POSTOPERATIVE DIAGNOSES: Postmenopausal bleeding, personal history of breast cancer. PROCEDURE: Hysteroscopy, dilatation and curettage. SURGEON: Brittnee Valdez MD BOOKSTORE MANAGER: None. ANESTHESIOLOGIST: Pepito Keller MD ANESTHESIA: General. COMPLICATIONS: None. INTRAVENOUS FLUIDS: 400 mL ESTIMATED BLOOD LOSS: 5 mL PATHOLOGY: Endometrial curettings. FINDINGS: Normal pelvic examination under anesthesia. No adnexal masses. Hysteroscopy revealed a small atrophic uterine cavity without lesions. Uncomplicated procedure. DESCRIPTION OF PROCEDURE: Patient was met preoperatively. Risks, benefits, and alternatives of surgery were discussed in details. All questions were answered. The patient was brought to the OR with the IV running. She was placed on the surgical table in the supine position. The general anesthesia was achieved without difficulty. The patient was placed in a dorsal lithotomy position with adjustable Richie stirrups. She was examined under anesthesia with the findings as described above. The patient was then prepped and draped in the usual sterile fashion. A timeout procedure was conducted as per standard protocol. A weighted speculum was used inside the vagina with good visualization of the cervix. The anterior cervical lip was grasped with a single-tooth tenaculum. A 5-mm hysteroscope was gently introduced inside the uterine cavity with the findings as described above. The endometrial curettage was then performed, and the tissue was submitted to Pathology for evaluation. Once this was completed, a hysteroscope was once again placed inside the uterine cavity. Good hemostasis was noted. All of the instruments were then removed from the patient. Sponge, lap, needle counts were correct. The patient was returned to supine position. She was transferred to recovery room awake and in stable condition. BRITTNEE VALDEZ M.D. [id number]
--- NOTE | 2017-04-04 12:44 | PATH ---
Surgical Pathology Report Patient Name: ROWENA DE LEÓN [facility]. Rec. #: [id number] /Age/Gender: 1965 (Age: 51) / F Account: [id number] Location: [facility] Taken: 04/03/2017 Received: 04/03/2017 Reported: 04/04/2017 Physicians: Nick Chen M.D. Specimen(s) Received ENDOMETRIAL CURETTINGS Clinical History Postmenopausal bleeding, personal history of breast cancer Final Diagnosis ENDOMETRIAL CURETTINGS, DILATION AND CURETTAGE: ATROPHIC ENDOMETRIUM AND SCANT ENDOCERVICAL TISSUE. Electronically Signed Violet Mari M.D. Gross Description Received in formalin labeled "endometrial curettings," is a 2.4 x 2.2 x 0.3 cm aggregate of red-brown soft tissue fragments admixed with blood clot. The formalin is filtered and the specimen is entirely submitted in one cassette. /04/03/2017 saudi04/03/2017
== END 2017-04-03 16:09 | disposition home or self-care (01) ==
LOC: JASU-SURG 06:44
PROVIDERS: ATTEND Obstetrics & Gynecology
PROC: 0UDB7ZX Extraction of Endometrium, Via Natural or Artificial Opening, Diagnostic (ICD-10-PCS; principal; 2017-04-03 09:00)
PROC: 0UJD8ZZ Inspection of Uterus and Cervix, Via Natural or Artificial Opening Endoscopic (ICD-10-PCS; 2017-04-03 09:00)
DX: N95.0 Postmenopausal bleeding (principal); Z85.3 Personal history of malignant neoplasm of breast
CPT/HCPCS: 36415; 84703; 86850; 86900; 86901; 88305-TC; 94760

== ENCOUNTER 2017-05-10 12:48 | Emergency (ER) | payer OTHER ==
[2017-05-10 12:51] VITALS: BP 117/70; PULSE 70; TEMP 98; BMI 30.9
--- NOTE | 2017-05-10 14:36 | PDOC ---
History of Present Illness - General Chief Complaint: Ear Problem Stated Complaint: EAR PAIN Time Seen by Provider: 05/10/17 14:23 History Source: Patient Exam Limitations: No Limitations - History of Present Illness Initial Comments: 05/10/17 14:38 51-year-old woman with history of breast cancer status post mastectomy and GERD who presents emergency Department with right ear pain for 2 days and now with nasal congestion and sore throat. Pain the ear is now periauricular with rating 4/10. Patient has not taken any for the pain. Patient denies fevers, chills, discharge from ear, hearing loss, cough, chest pain, shortness of breath. Past History - Past Medical History Allergies/Adverse Reactions: Allergies Allergy/AdvReac Type Severity Reaction Status Date / Time codeine [Codeine] Allergy Mild Itching Verified 05/10/17 12:51 POWDER GLOVES Allergy Intermediate Rash Uncoded 05/10/17 12:51 Home Medications: Ambulatory Orders NK [No Known Home Medication] 05/10/17 Anemia: No Asthma: No Cancer: Yes (BILATERAL BREAST CA WITH IMPLANTS 2010) Cardiac Disorders: No CVA: No COPD: No CHF: No Dementia: No Diabetes: No GI Disorders: Yes (ACID REFLUX) Disorders: No HTN: No Hypercholesterolemia: No Liver Disease: No Seizures: No Thyroid Disease: No - Surgical History Abdominal Surgery: Yes (BILATERAL INGUNIAL HERNIA REPAIR ~2011) Appendectomy: No Cardiac Surgery: No Cholecystectomy: No Lung Surgery: No Neurologic Surgery: No Orthopedic Surgery: Yes (r knee arthroscopy) - Reproductive History Cervical CA: No Dysfunctional Uterine Bleeding: No Ectopic : No Endometrial CA: No Polycystic Ovaries: No Therapeutic (s) & number: No Tubal Ligation: No - Immunization History Immunization Up to Date: Yes - Suicide/Smoking/Psychosocial Hx Smoking Status: No Smoking History: Never smoked Have you smoked in the past 12 months: No Number of Cigarettes Smoked Daily: 0 If you are a former smoker, when did you quit?: 11YRS Information on smoking cessation initiated: No Hx Alcohol Use: No Drug/Substance Use Hx: No Substance Use Type: None Hx Substance Use Treatment: No Review of Systems - Review of Systems Able to Perform ROS?: Yes Is the patient limited Uzbek proficient: No Constitutional: No: Symptoms Reported HEENTM: Yes: See HPI Respiratory: No: Symptoms reported Cardiac (ROS): No: Symptoms Reported ABD/GI: No: Symptoms Reported : No: Symptoms Reported Musculoskeletal: No: Symptoms Reported Integumentary: No: Symptoms Reported Neurological: No: Symptoms reported *Physical Exam - Vital Signs Last Vital Signs Temp Pulse Resp BP Pulse Ox 98 F 70 17 117/70 100 05/10/17 12:49 05/10/17 12:49 05/10/17 12:49 05/10/17 12:49 05/10/17 12:49 - Physical Exam General Appearance: Yes: Appropriately Dressed. No: Apparent Distress HEENT: positive: Nasal Congestion, Other (Right TM with retraction is noted. Cobblestoning presents to the posterior oropharynx and back of tongue. No periauricular tenderness noted to right ear). negative: Pharyngeal Erythema, Tonsillar Exudate, Tonsillar Erythema, Rhinorrhea, Sinus Tenderness Neck: positive: Trachea midline, Supple Respiratory/Chest: positive: Lungs Clear, Normal Breath Sounds. negative: Respiratory Distress, Accessory Muscle Use Cardiovascular: positive: Regular Rhythm, Regular Rate, S1, S2. negative: Murmur Gastrointestinal/Abdominal: positive: Normal Bowel Sounds, Soft. negative: Tender Musculoskeletal: positive: Normal Inspection. negative: CVA Tenderness Extremity: positive: Normal Inspection, Normal Range of Motion Integumentary: positive: Normal Color, Dry, Warm Neurologic: positive: Alert, Normal Response Medical Decision Making - Medical Decision Making 05/10/17 14:40 CC: Right ear pain and nasal congestion A/P: 51-year-old female with history of breast cancer status post mastectomy and GERD presents with 3 days of right ear pain and nasal congestion Retractions noted to the right TM. No erythema or pus present. External auditory canal clear without erythema or exudate Palpation of the periauricular area nontender not erythematous. No tenderness to palpation of tragus Cobblestoning noted in the posterior oropharynx and at the back of tongue. Nasal congestion present on inspection No sinus tenderness elicited Lungs clear to auscultation bilaterally URI Symptomatic treatment Discharge *DC/Admit/Observation/Transfer Diagnosis at time of Disposition: Upper respiratory infection Qualifiers: URI type: unspecified URI Qualified Code(s): J06.9 - Acute upper respiratory infection, unspecified - Discharge Dispostion Disposition: HOME Condition at time of disposition: Stable Admit: No - Referrals Referrals: Kadeem Cohen MD [Primary Care Provider] - - Patient Instructions Additional Instructions: Rest, drink lots of fluids: Teas, water, soups, Pedialyte Saltwater gargles Steamy showers/seem to face break up mucus Lots of handwashing and good hygiene Continue [id number] medications for symptomatic relief Tylenol or Motrin for fever and pain Followup with private physician in one to 2 days as needed Return to emergency department for worsened symptoms, fevers, dehydration - Post Discharge Activity
== END 2017-05-10 14:39 | disposition home or self-care (01) ==
LOC: JERFT 12:48
DX: J06.9 Acute upper respiratory infection, unspecified (principal); K21.9 Gastro-esophageal reflux disease without esophagitis; Z85.3 Personal history of malignant neoplasm of breast; Z87.891 Personal history of nicotine dependence
CPT/HCPCS: 99281-25

== ENCOUNTER 2017-05-27 08:17 | Emergency (ER) | payer OTHER ==
[2017-05-27 08:23] VITALS: BP 106/72; PULSE 62; TEMP 98.4; BMI 30.9
[2017-05-27] MEDS ORDERED: LORATADINE 10 MG TABLET PO ONE (08:53)
[2017-05-27] MEDS ORDERED: ACETAMINOPHEN 500 MG TABLET (FP) PO ONE (08:53)
--- NOTE | 2017-05-27 08:57 | PDOC ---
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 States being seen for the same last week and diagnosed with upper respiratory infection. She was referred to follow up with primary physician but has not yet. Timing/Duration: reports: week (1-2 weeks) Severity: reports: mild Possible Cause: Yes: allergen exposure Modifying Factors: improves with: other (no intervention yet) Associated Symptoms: reports: earache, nasal congestion Aspirin Received prior to arrival: Yes: no aspirin today ASA Contraindications(Core Measure): No: Allergy Beta Leah Contraindications(Core Measure): Yes: Not Prescribed Beta Leah Given by EMS(Core Measure): No Beta Leah Taken at Home(Core Measure): No Past History - Past Medical History Allergies/Adverse Reactions: Allergies Allergy/AdvReac Type Severity Reaction Status Date / Time codeine [Codeine] Allergy Mild Itching Verified 05/27/17 08:23 POWDER GLOVES Allergy Intermediate Rash Uncoded 05/27/17 08:23 Home Medications: Ambulatory Orders NK [No Known Home Medication] 05/10/17 Anemia: No Asthma: No Cancer: Yes (BILATERAL BREAST CA WITH IMPLANTS 2010) Cardiac Disorders: No CVA: No COPD: No CHF: No Dementia: No Diabetes: No GI Disorders: Yes (ACID REFLUX) Disorders: No HTN: No Hypercholesterolemia: No Liver Disease: No Seizures: No Thyroid Disease: No - Surgical History Abdominal Surgery: Yes (BILATERAL INGUNIAL HERNIA REPAIR ~2011) Appendectomy: No Cardiac Surgery: No Cholecystectomy: No Lung Surgery: No Neurologic Surgery: No Orthopedic Surgery: Yes (r knee arthroscopy) - Reproductive History Cervical CA: No Dysfunctional Uterine Bleeding: No Ectopic : No Endometrial CA: No Polycystic Ovaries: No Therapeutic (s) & number: No Tubal Ligation: No - Immunization History Immunization Up to Date: Yes - Suicide/Smoking/Psychosocial Hx Smoking Status: No Smoking History: Never smoked Have you smoked in the past 12 months: No Number of Cigarettes Smoked Daily: 0 If you are a former smoker, when did you quit?: 11YRS Hx Alcohol Use: No Drug/Substance Use Hx: No Substance Use Type: None Hx Substance Use Treatment: No Review of Systems - Review of Systems Able to Perform ROS?: Yes Is the patient limited Frisian proficient: No Constitutional: No: Chills, Malaise, Night Sweats, Weakness HEENTM: Yes: Ear Pain, Nose Congestion. No: Eye Pain, Cataracts, Ocular Prothesis, Hearing Loss, Throat Pain Respiratory: No: Orthopnea, SOB at Rest, Wheezing Cardiac (ROS): No: Chest Pain, Irregular Heart Rate, Lightheadedness, Palpitations, Syncope ABD/GI: No: Blood Streaked Bowels, Nausea, Poor Appetite, Poor Fluid Intake, Rectal Bleeding, Vomiting, Indigestion, Abdominal cramping : No: Burning, Hematuria, Incontinence Musculoskeletal: No: Back Pain, Gout, Joint Pain Integumentary: No: Bruising, Dryness, Erythema Neurological: No: Headache, Tingling Psychiatric: No: Mood Swings Hematologic/Lymphatic: No: Anemia *Physical Exam - Vital Signs Last Vital Signs Temp Pulse Resp BP Pulse Ox 98.4 F 62 18 106/72 100 05/27/17 08:21 05/27/17 08:21 05/27/17 08:21 05/27/17 08:21 05/27/17 08:21 - Physical Exam General Appearance: Yes: Nourished, Appropriately Dressed. No: Apparent Distress HEENT: positive: STACY, TMs Normal, Pharynx Normal. negative: Normal ENT Inspection, Pharyngeal Erythema, Tonsillar Erythema, Nasal Congestion, Rhinorrhea Neck: positive: Supple. negative: Lymphadenopathy (R) Respiratory/Chest: positive: Lungs Clear, Normal Breath Sounds. negative: Labored Respiration, Paradoxal Breathing Cardiovascular: positive: Regular Rhythm, Regular Rate, S1, S2 Female Pelvic Exam: negative: Scalene Gland Gastrointestinal/Abdominal: negative: Increased Bowel Sounds, Tenderness Rectal Exam: negative: melena Musculoskeletal: negative: CVA Tenderness (L), Decreased Range of Motion Extremity: positive: Normal Capillary Refill. 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 negative: Abnormal Cranial NS, Responsive Medical Decision Making - Medical Decision Making 05/27/17 08:56 51 year old female with history of breast Cancer, acid reflux and hernias present with seasonal allergy symptoms given acetaminophen and claritin instructed to follow up with pmd *DC/Admit/Observation/Transfer Diagnosis at time of Disposition: Ear pain, right Seasonal allergies Qualifiers: Allergic rhinitis trigger: unspecified Qualified Code(s): J30.2 - Other seasonal allergic rhinitis - Discharge Dispostion Disposition: HOME Condition at time of disposition: Good Admit: No - Referrals Referrals: Kadeem Cohen MD [Primary Care Provider] - - Patient Instructions Additional Instructions: Please call primary physician for an appointment to follow up on symptoms from this visit. Please take allergy medication before leaving home daily Please take acetaminophen or ibuprofen for headache and drink plenty water - Post Discharge Activity Forms/Work/School Notes: Back to Work
[2017-05-27] MEDS ORDERED: ACETAMINOPHEN 500 MG TABLET (FP) ONE (08:59)
[2017-05-27] MEDS ORDERED: LORATADINE 10 MG TABLET ONE (08:59)
== END 2017-05-27 09:03 | disposition home or self-care (01) ==
LOC: JERFT 08:17
DX: J30.2 Other seasonal allergic rhinitis (principal); Z85.3 Personal history of malignant neoplasm of breast; Z96.89 Presence of other specified functional implants
CPT/HCPCS: 99281-25

== ENCOUNTER 2017-06-12 06:42 | Inpatient (IN) | payer OTHER ==
--- NOTE | 2017-06-12 06:54 | PDOC ---
History of Present Illness - General Chief Complaint: Syncope/Near Syncope Stated Complaint: SYNCOPE Time Seen by Provider: 06/12/17 06:48 - History of Present Illness Initial Comments: 06/12/17 07:28 The patient is a 51 year old female with a history of Breast CA s/p bilateral mastectomy who presents for evaluation following a syncopal episode. The patient reports that she was getting out of the shower earlier this morning and experienced a sensation of feeling flushed prior to "passing out" and falling back into the shower. The patient reports brief LOC as well as head trauma and left thigh pain. She states that she was ambulatory after the event as well. She reports having a similar syncopal episode 8 years ago. She otherwise denies fevers, chills, SOB, chest pain, palpitations, nausea, vomiting, abdominal pain, or changes with urination or bowel movements. Past History - Past Medical History Allergies/Adverse Reactions: Allergies Allergy/AdvReac Type Severity Reaction Status Date / Time codeine [Codeine] Allergy Mild Itching Verified 06/12/17 06:51 POWDER GLOVES Allergy Intermediate Rash Uncoded 06/12/17 06:51 Home Medications: Ambulatory Orders NK [No Known Home Medication] 05/10/17 Anemia: No Asthma: No Cancer: Yes (BILATERAL BREAST CA WITH IMPLANTS 2010) Cardiac Disorders: No CVA: No COPD: No CHF: No Dementia: No Diabetes: No GI Disorders: Yes (ACID REFLUX) Disorders: No HTN: No Hypercholesterolemia: No Liver Disease: No Seizures: No Thyroid Disease: No - Surgical History Abdominal Surgery: Yes (BILATERAL INGUNIAL HERNIA REPAIR ~2011) Appendectomy: No Cardiac Surgery: No Cholecystectomy: No Lung Surgery: No Neurologic Surgery: No Orthopedic Surgery: Yes (r knee arthroscopy) - Reproductive History Cervical CA: No Dysfunctional Uterine Bleeding: No Ectopic : No Endometrial CA: No Polycystic Ovaries: No Therapeutic (s) & number: No Tubal Ligation: No - Immunization History Immunization Up to Date: Yes - Suicide/Smoking/Psychosocial Hx Smoking Status: No Smoking History: Former smoker Have you smoked in the past 12 months: No Number of Cigarettes Smoked Daily: 0 If you are a former smoker, when did you quit?: 11YRS Information on smoking cessation initiated: No Hx Alcohol Use: No Drug/Substance Use Hx: No Substance Use Type: None Hx Substance Use Treatment: No Review of Systems - Review of Systems Comments:: 06/12/17 07:31 Constitutional: No fevers, chills, fatigue, malaise HEENT: No Rhinorrhea, nasal congestion, visual changes Cardiovascular: Syncope. No chest pain, palpitations, lightheadedness Respiratory: No Cough, SOB, Hemoptysis, Gastrointestinal: No Abdominal pain, Nausea, Vomiting, Constipation, Diarrhea, Melena Genitourinary: No Dysuria, Frequency, Urgency, Hesitancy, Hematuria, Flank pain Musculoskeletal: No Myalgia, arthralgia Skin: No rashes, itching, bruising, pallor Neurologic: No Headache, Dizziness, Numbness, Weakness, or Tingling Psychiatric: No Hallucinations. No SI or HI *Physical Exam - Vital Signs Last Vital Signs Temp Pulse Resp BP Pulse Ox 97.9 F 72 16 103/71 99 06/12/17 06:51 06/12/17 06:51 06/12/17 06:51 06/12/17 06:51 06/12/17 06:51 - Physical Exam Comments: 06/12/17 07:31 General Appearance: Nourished. No Apparent Distress HEENT: EOMI, STACY. No Pharyngeal Erythema, Tonsillar Exudate, Tonsillar Erythema Neck: No Cervical Lymphadenopathy Respiratory/Chest: Lungs Clear, Normal Breath Sounds. No Crackles, Rales, Rhonchi, Wheezing Cardiovascular: Regular Rhythm, Regular Rate. No Murmur, Gallops, Rubs Gastrointestinal/Abdominal: Normal Bowel Sounds, Soft. 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 Normal Finger to Nose and Heel to Schmidt Heart Score/ECG Review #1 ECG reviewed & interpreted by me at: 07:32 General ECG Interpretation: Sinus Rhythm, Normal Rate, Normal Intervals, No acute ischemic changes Compared to previous ECG there are: No significant change ED Treatment Course - LABORATORY CBC & Chemistry Diagram: 06/12/17 07:45 06/12/17 07:45 Medical Decision Making - Medical Decision Making 06/12/17 07:32 The patient is a 51 year old female with a history of Breast CA s/p bilateral mastectomy who presents for evaluation following a syncopal episode. Differential includes but is not limited to: Vaso-vagal, ACS, Arrhythmia, Intra- cranial process, Infectious, Metabolic Derangement. Given the patient's reported history, it is likely her syncopal episode was vaso-vagal in nature. However we will obtain a cbc, cmp, troponin, ekg, head CT to evaluate further for possible etiologies as well as plain films of the left thigh to evaluate for any fracture. We will treat in the meantime with iv fluids and continue to monitor and reassess. 06/12/17 09:53 CBC, cmp, troponin are unremarkable. Head CT demonstrates a large right frontal lobe mass with midline shift possibly related to a primary or secondary tumor as read by our radiologist and is likely related to the cause of the patient's syncope. We discussed the case with Dr. Mascorro with neurosurgery who has reviewed the images and requests decadron 4mg q6h, keppra, MRI, and no iv fluids and will come evaluate the patient. We discussed the case with Dr. Jackson with the admitting team who accepted the patient for admission. *DC/Admit/Observation/Transfer Diagnosis at time of Disposition: Brain neoplasm - Discharge Dispostion Condition at time of disposition: Stable Admit: Yes - Referrals - Patient Instructions - Post Discharge Activity
[2017-06-12] MEDS ORDERED: SODIUM CHLORIDE 1,000 ML IV STA (07:02)
--- NOTE | 2017-06-12 07:45 | PDOC ---
Attending Attestation - HPI HPI: 06/12/17 09:54 The patient is a 51 year old female with a significant PMH of breast CA (s/p bilateral mastectomy) who presents to the emergency department for evaluation s/ p syncopal episode. The patient reports losing consciousness while getting out of the shower and falling back in. She reports hitting her head and notes left thigh pain at presentation. The patient denies difficulty ambulating. She notes a similar syncopal episode about 8 year ago. The patient denies chest pain or shortness of breath. She denies fevers or chills. Allergies: Codeine PCP: None reported. <Vincent Nash - Last Filed: 06/12/17 09:54> - Resident Resident Name: Bogdan Rosas - ED Attending Attestation I have performed the following: I have examined & evaluated the patient, The case was reviewed & discussed with the resident, I agree w/resident's findings & plan, Exceptions are as noted - Physicial Exam PE: 06/12/17 16:21 Vitals: Triage Vital signs reviewed General Appearance: no acute distress, well nourished well developed, Head: Atraumatic, Eyes: Pupils equal reactive round, extraocular movement intact Neck: Supple;No Nucal rigidity Chest Wall: Nontender Cardiac: Regular rate and rhythym, no murmurs, no rubs, no gallops, Lungs: Clear to auscultation bilateral, good air movement bilaterally, Abdomen: Soft, non distended, normal bowel sounds, non tender to palpation Extremities: Full range of motion to all extremities, no cyanosis, clubbing, or edema Skin: Warm and dry, no rashes or lesions, no rash, no petechiae Neuro: AOX3; Cranial Nerves 2-12 grossly intact, Strength intact to all extremities, Sensation intact to all extremities,gait normal Psych: normal mood, normal affect - Critical Care Time Total Critical Care Time: 35 Critical Care Statement: The care of this patient involved high complexity decision making to prevent further life threatening deterioration of the patient 's condition and/or to evaluate & treat vital organ system(s) failure or risk of failure. - Medical Decision Making 06/12/17 10:17 51 years old past medical history significant for breast cancer status post bilateral mastectomies presents to the ED with syncopal episode. One episode of syncope in the past We'll check labs head CT x-rays and reassess given recent gastric bypass surgery will also check a d-dimer and Dopplers Reevaluation 10 AM CAT scan with evidence of brain mass we will hold on CTA of chest as low suspicion for PE at this time and patient would not be a candidate for anticoagulation. We'll defer to hematology oncology given that patient will need additional imaging with IV contrast at this time as well. Neurosurgery consulted. Dr. Jarquin. Will Treat with Decadron/Keppra. We will admit to medicine for further evaluation. <Jose G Goodrich - Last Filed: 06/12/17 16:21> Heart Score/ECG Review - ECG Impressions Comment:: 06/12/17 10:15 EKG performed at 7:15 AM. Demonstrates sinus rhythm 74 bpm. MT interval 164. QRS 98. QTC 397. No acute ST elevations or T-wave inversions. Q waves noted in leads 3 and aVF, unchanged from previous EKG Interpreted by me. <Jose G Goodrich - Last Filed: 06/12/17 16:21>
[2017-06-12 08:01] LABS: BASO % 0.7 % (0-2.0); HEMATOCRIT 36.9 % (32.4-45.2); HEMOGLOBIN 12.3 GM/dL (10.7-15.3); MCH 28.4 pg (25.7-33.7); MCHC 33.2 g/dl (32.0-36.0); MEAN CELL VOLUME 85.3 fl (80-96); MONO % 5.1 % (3.8-10.2); NEUT % 72.2 % (42.8-82.8); PLATELET COUNT 294 K/MM3 (134-434); RBC 4.33 M/mm3 (3.60-5.2); RDW 15.9 % (11.6-15.6); WHITE BLOOD COUNT 7.9 K/mm3 (4.0-10.0)
[2017-06-12 08:34] LABS: ALBUMIN 3.4 g/dl (3.4-5.0); ANION GAP 5 (8-16); BILIRUBIN,TOTAL 0.3 mg/dL (0.2-1.0); BLOOD UREA NITROGEN 11 mg/dL (7-18); CHLORIDE 109 mmol/L (98-107); CO2 29 mmol/L (21-32); GLUCOSE,RANDOM 86 mg/dL (74-106); SGPT/ALT 28 U/L (12-78); SODIUM 143 mmol/L (136-145); TOT PROT 8.4 g/dl (6.4-8.2)
[2017-06-12 08:35] LABS: ALK PHOS 107 U/L (45-117)
[2017-06-12 09:06] LABS: POTASSIUM 4.6 mmol/L (3.5-5.1)
[2017-06-12 09:07] LABS: SGOT/AST 25 U/L (15-37)
[2017-06-12] MEDS ORDERED: levETIRAcetam 500 MG/5 ML INJECTION VIAL IVPB ONE ×2 (12:09→13:07)
[2017-06-12] MEDS ORDERED: DEXAMETHASONE SOD PHOSPHATE 4 MG/1 ML VIAL IVPUSH ONE (12:09)
--- NOTE | 2017-06-12 12:10 | EKG ---
Test Reason : Blood Pressure : / mmHG Vent. Rate : 074 BPM Atrial Rate : 074 BPM P-R Int : 164 ms QRS Dur : 098 ms QT Int : 358 ms P-R-T Axes : 071 035 076 degrees QTc Int : 397 ms NORMAL SINUS RHYTHM INFERIOR INFARCT , AGE UNDETERMINED ABNORMAL ECG WHEN COMPARED WITH ECG OF 21-DEC-2016 14:13, INFERIOR INFARCT IS NOW PRESENT NONSPECIFIC T WAVE ABNORMALITY NOW EVIDENT IN LATERAL LEADS Confirmed by ANA NOLAN MD ([id number]) on 06/12/2017 12:10:12 PM Referred By: Confirmed By:ANA NOLAN MD
[2017-06-12] MEDS ORDERED: ACETAMINOPHEN 1000 MG/100 ML VIAL (NON FORMULARY) IVPB ONE (12:23)
[2017-06-12] MEDS ORDERED: ACETAMINOPHEN 325 MG TABLET (FP) PO PRN (12:53)
[2017-06-12] MEDS ORDERED: ONDANSETRON 4 MG/2 ML VIAL IVPUSH PRN (12:53)
--- NOTE | 2017-06-12 12:57 | HP ---
Admitting History and Physical - Primary Care Physician PCP: Kadeem Cohen - Admission Chief Complaint: I fell History of Present Illness: Ms Cheung is a very pleasant 51 year old female who comes in s/p 2 falls. She has been in good health and without complaint. She was in the bathroom and had just finished taking a shower. She says after this she fell twice. She is unclear of what happened. She says she was standing at the sink and next thing she knew she was on the ground. This happened a second time as well. She does not know exactly how long she was out but thinks it was minimal. She did not have any lightheadedness or dizziness prior to the loss of consciousness, it happened suddenly. She did not have confusion or difficulty speaking after the episode. She did not bite her tongue. Because of this she came in. She denies headache, loss or change of vision or hearing, fevers, chills, chest pain, shortness of breath, nausea, vomiting, diarrhea, constipation, difficulty or pain on urination, swelling, numbness, or weakness. History Source: Patient Limitations to Obtaining History: No Limitations - Past Medical History ...LMP: 12/30/15 Heme/Onc: Yes: Cancer (breast) - Past Surgical History Past Surgical History: Yes: Hernia Repair (hiatal), Mastectomy (b/l) - Smoking History Smoking history: Former smoker Have you smoked in the past 12 months: No Aproximately how many cigarettes per day: 0 If you are a former smoker, when did you quit?: 11YRS - Alcohol/Substance Use Hx Alcohol Use: No History of Substance Use: reports: None - Social History ADL: Independent History of Recent Travel: No Home Medications - Allergies Allergies/Adverse Reactions: Allergies Allergy/AdvReac Type Severity Reaction Status Date / Time codeine [Codeine] Allergy Mild Itching Verified 06/12/17 06:51 POWDER GLOVES Allergy Intermediate Rash Uncoded 06/12/17 06:51 - Home Medications Home Medications: Ambulatory Orders NK [No Known Home Medication] 05/10/17 Family Disease History - Family Disease History Family Disease History: Heart Disease: Mother (HTN), Respiratory: Brother ( asthma) Review of Systems Findings/Remarks: Full review of systems obtained, as per HPI and otherwise negative Physical Examination Vital Signs: Vital Signs Temperature 36.6 C 06/12/17 06:51 Pulse Rate 72 06/12/17 06:51 Respiratory Rate 16 06/12/17 06:51 Blood Pressure 103/71 06/12/17 06:51 O2 Sat by Pulse Oximetry (%) 99 06/12/17 06:51 Constitutional: Yes: Well Nourished, No Distress, Calm Eyes: Yes: Conjunctiva Clear, EOM Intact, PERRL HENT: Yes: Atraumatic, Normocephalic Cardiovascular: Yes: Regular Rate and Rhythm. No: Gallop, Murmur, Rub Respiratory: Yes: Regular, CTA Bilaterally. No: Rales, Rhonchi, Wheezes Gastrointestinal: Yes: Normal Bowel Sounds, Soft. No: Distention, Tenderness Extremities: Yes: WNL Edema: No Labs: CBC, BMP 06/12/17 07:45 06/12/17 07:45 Imaging - Results Cat Scan: Report Reviewed, Image Reviewed Problem List - Problems (1) Syncope Assessment/Plan: -patient presents with syncope x2 -concerning secondary to large mass in brain -will admit to the hospital -check ECHO and carotid ultrasound -will not hydrate currently per neurosurgery orders Code(s): R55 - SYNCOPE AND COLLAPSE (2) Brain neoplasm Assessment/Plan: -most likely metastatic breast cancer -case d/w neurosurgery -MRI brain -decadron -possible surgical intervention Code(s): D49.6 - NEOPLASM OF UNSPECIFIED BEHAVIOR OF BRAIN (3) History of breast cancer Assessment/Plan: -treated with bilateral mastectomy and radiation -consult oncology Code(s): Z85.3 - PERSONAL HISTORY OF MALIGNANT NEOPLASM OF BREAST
[2017-06-12] MEDS ORDERED: ACETAMINOPHEN INJECTION 100 ML IVPB ONE (13:07)
[2017-06-12] MEDS ORDERED: DEXAMETHASONE SOD PHOSPHATE 4 MG/1 ML VIAL ONE (13:07)
--- NOTE | 2017-06-12 14:41 | PN ---
Progress Note (short form) - Note Progress Note: Neurosurgery - Jelani Mascorro Called to eval 51 y/o female with a PMHx of breast CA s/p bilateral mastectomy who presents for evaluation following a syncopal episode. The patient reports that she was getting out of the shower earlier this morning and experienced a sensation of feeling flushed prior to "passing out" and falling back into the shower. The patient reports brief LOC as well as head trauma and left thigh pain. She states that she was ambulatory after the event as well. She reports having a similar syncopal episode 8 years ago. While in ED she had a Head CT which identified a right frontal lobe mass. 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 Mascorro to follow. Pre-op for Stereotactic right frontal craniotomy for microsurgical resection of brain tumor 06/14/17 f/u MRI brain with and without gado (sterotactic protocol) NO running IV fluids Keppra 100mg IV BID Decadron 4mg IV Q6H Hibiclens shampoo ordered for Tues at 8PM DVT PPX via TEDS and SCDs Code(s): D49.6 - NEOPLASM OF UNSPECIFIED BEHAVIOR OF BRAIN
[2017-06-12] MEDS: DEXAMETHASONE SOD PHOSPHATE 4 MG/1 ML VIAL IVPUSH SCH ×2 (15:21→20:33)
--- NOTE | 2017-06-12 17:30 | CONSULT ---
Consult - text type - Consultation Consultation Note: The patient is a 51 year old female with a history of Breast CA s/p bilateral mastectomy who presents for evaluation following a syncopal episode. The patient reports that she was getting out of the shower earlier this morning and experienced a sensation of feeling flushed prior to "passing out" and falling back into the shower. The patient reports brief LOC as well as head trauma and left thigh pain. She states that she was ambulatory after the event as well. She reports having a similar syncopal episode 8 years ago. She otherwise denies fevers, chills, SOB, chest pain, palpitations, nausea, vomiting, abdominal pain, or changes with urination or bowel movements. Recent ventral hernia repair at [facility] on 05/30 Past History breast cabcer , h/o b/l mastectomies 2010 GERD PSH b/l mastrectomies ventral hernia repair FH Sister [place] breast cancer Allergies/Adverse Reactions: Allergies Allergy/AdvReac Type Severity Reaction Status Date / Time codeine [Codeine] Allergy Mild Itching Verified 06/12/17 06:51 POWDER GLOVES Allergy Intermediate Rash Uncoded 06/12/17 06:51 Home Medications: Ambulatory Orders NK [No Known Home Medication] 05/10/17 - Surgical History Abdominal Surgery: Yes (BILATERAL INGUNIAL HERNIA REPAIR ~2011) Orthopedic Surgery: Yes (r knee arthroscopy) - Immunization History Immunization Up to Date: Yes - Suicide/Smoking/Psychosocial Hx Smoking History: Former smoker - Vital Signs Last Vital Signs Temp Pulse Resp BP Pulse Ox 97.9 F 72 16 103/71 99 06/12/17 06:51 06/12/17 06:51 06/12/17 06:51 06/12/17 06:51 06/12/17 06:51 - Physical Exam Cor: RSR, No murmurs, No gallops Lungs: Clear to P&A Abd: Soft, Normal bowel sounds, No organomegaly Ext:No significant edema Abnormal Lab Results 06/12/17 06/12/17 06/12/17 07:45 07:45 08:50 RDW 15.9 H D-Dimer 24237 H Chloride 109 H Anion Gap 5 L Total Protein 8.4 H Active Medications Acetaminophen (Tylenol -) 650 mg PO Q4H PRN PRN Reason: PAIN LEVEL 1-5 Chlorhexidine Gluconate (Hibiclens For Decolonization -) 1 applic TP HS VAL Dexamethasone Sodium Phosphate (Decadron Injection -) 4 mg IVPUSH Q6H-IV VAL Last Admin: 06/12/17 15:21 Dose: Not Given Levetiracetam (Keppra Injection -) 1,000 mg IVPB BID VAL Ondansetron HCl (Zofran Injection) 4 mg IVPUSH Q6H PRN PRN Reason: NAUSEA A/P The patient is a 51 year old female with a history of ? b/l Breast CA s/p bilateral mastectomy/implants ,in 2010, h.o RTto Lt. breast, no chemotherapy/ hormonal therapy. Treated at [facility]. Last saw her oncologist 3 months ago. She presents for evaluation following a syncopal episode. She recently had ventral hernia repair on 05/30 Noted to have large rt. frontal lobe mass lesion 4.7 x 4cm with vasogenic edema and midline shift On steroids For MRI and neurosurgical consultation To get CT chest. To also get CT a/p and bone scan after MRI brain, once well hydrated discussed wi patient and her son Will also
[2017-06-12 20:07] LABS: URINE APPEARANCE CLEAR; URINE BILIRUBIN NEGATIVE (<2.0 mg/dL); URINE BLOOD NEGATIVE (NEGATIVE); URINE COLOR LTYELLOW; URINE GLUCOSE (UA) NEGATIVE (NEGATIVE); URINE KETONE NEGATIVE (NEGATIVE); URINE LEUK ESTERASE NEGATIVE (NEGATIVE); URINE NITRITE NEGATIVE (NEGATIVE); URINE PROTEIN NEGATIVE (NEGATIVE); URINE UROBILINOGEN NEGATIVE mg/dL (0.2-1.0)
[2017-06-12] MEDS: levETIRAcetam 500 MG/5 ML INJECTION VIAL IVPB SCH (22:42)
[2017-06-13] MEDS: DEXAMETHASONE SOD PHOSPHATE 4 MG/1 ML VIAL IVPUSH SCH ×4 (03:05→21:06)
[2017-06-13 09:45] LABS: BASO % 0.2 % (0-2.0); HEMATOCRIT 37.1 % (32.4-45.2); HEMOGLOBIN 12.1 GM/dL (10.7-15.3); LYMPH % 15.4 % (8-40); MCH 27.8 pg (25.7-33.7); MCHC 32.5 g/dl (32.0-36.0); MEAN CELL VOLUME 85.6 fl (80-96); MEAN PLT VOLUME 8.4 fl (7.5-11.1); MONO % 1.3 % (3.8-10.2); NEUT % 83.1 % (42.8-82.8); PLATELET COUNT 298 K/MM3 (134-434); RBC 4.34 M/mm3 (3.60-5.2); WHITE BLOOD COUNT 9.6 K/mm3 (4.0-10.0)
[2017-06-13] MEDS: levETIRAcetam 500 MG/5 ML INJECTION VIAL IVPB SCH ×2 (09:46→21:06)
[2017-06-13 09:56] LABS: INR 1.09 (0.82-1.09); PROTHROMBIN TIME (PATIENT) 12.3 SEC (9.7-13.0)
[2017-06-13 09:59] LABS: ACTIVATED PTT 29.5 SECONDS (26.9-34.4)
[2017-06-13 10:09] LABS: ANION GAP 8 (8-16); BLOOD UREA NITROGEN 11 mg/dL (7-18); CALCIUM 9.7 mg/dL (8.5-10.1); CHLORIDE 107 mmol/L (98-107); CO2 28 mmol/L (21-32); CREATININE 0.8 mg/dL (0.55-1.02); GLUCOSE,RANDOM 111 mg/dL (74-106); MAGNESIUM 2.3 mg/dL (1.8-2.4); PHOSPHOROUS 3.2 mg/dL (2.5-4.9); SODIUM 143 mmol/L (136-145)
--- NOTE | 2017-06-13 13:04 | PN ---
Progress Note, Physician Chief Complaint: Ms Cheung says she is feeling much better today than she was yesterday. Denies cp, sob, n/v. - Current Medication List Current Medications: Active Medications Acetaminophen (Tylenol -) 650 mg PO Q4H PRN PRN Reason: PAIN LEVEL 1-5 Chlorhexidine Gluconate (Hibiclens For Decolonization -) 1 applic TP HS VAL Dexamethasone Sodium Phosphate (Decadron Injection -) 4 mg IVPUSH Q6H-IV VAL Last Admin: 06/13/17 09:46 Dose: 4 mg Levetiracetam (Keppra Injection -) 1,000 mg IVPB BID VAL Last Admin: 06/13/17 09:46 Dose: 1,000 mg Ondansetron HCl (Zofran Injection) 4 mg IVPUSH Q6H PRN PRN Reason: NAUSEA - Objective Vital Signs: Vital Signs Temperature 37.2 C 06/13/17 10:00 Pulse Rate 81 06/13/17 10:00 Respiratory Rate 16 06/13/17 10:00 Blood Pressure 131/54 06/13/17 10:00 O2 Sat by Pulse Oximetry (%) 99 06/13/17 09:00 Constitutional: Yes: Well Nourished, No Distress, Calm Cardiovascular: Yes: Regular Rate and Rhythm. No: Gallop, Murmur, Rub Respiratory: Yes: Regular, CTA Bilaterally. No: Rales, Rhonchi, Wheezes Gastrointestinal: Yes: Normal Bowel Sounds, Soft. No: Distention, Tenderness Extremities: Yes: WNL Edema: No Labs: CBC, BMP 06/13/17 08:55 06/13/17 08:55 INR, PTT INR 1.09 (0.82-1.09) 06/13/17 08:55 Problem List - Problems (1) Syncope Code(s): R55 - SYNCOPE AND COLLAPSE (2) Brain neoplasm Code(s): D49.6 - NEOPLASM OF UNSPECIFIED BEHAVIOR OF BRAIN (3) History of breast cancer Code(s): Z85.3 - PERSONAL HISTORY OF MALIGNANT NEOPLASM OF BREAST Assessment/Plan (1) Syncope Assessment/Plan: -suspect secondary to brain mass -ECHO and carotid ultrasound negative -monitor Code(s): R55 - SYNCOPE AND COLLAPSE (2) Brain neoplasm Assessment/Plan: -concern for metastatic breast cancer vs primary malignancy -continue decadron -MRI read reviewed -neurosurgery following and planning for surgery Code(s): D49.6 - NEOPLASM OF UNSPECIFIED BEHAVIOR OF BRAIN (3) History of breast cancer Assessment/Plan: -treated with bilateral mastectomy and radiation -appreciate oncology assistance -s/p chest CT -continue staging after brain neoplasm addressed Code(s): Z85.3 - PERSONAL HISTORY OF MALIGNANT NEOPLASM OF BREAST
[2017-06-13] MEDS ORDERED: THROMBIN (BOVINE) 20,000 UNIT VIAL TP ONE (13:52)
[2017-06-13] MEDS ORDERED: GENTAMICIN SO4 80 MG/2 ML VIAL ONE (13:52)
[2017-06-13] MEDS ORDERED: BUPIVACAINE HCL/PF 0.5% (5MG/ML) 10 ML VIAL ONE (13:52)
[2017-06-13] MEDS ORDERED: LIDOCAINE 1%/EPI 1:100000 (20 ML MULTI DOSE VIAL) ONE (13:52)
--- NOTE | 2017-06-13 14:18 | PN ---
Progress Note (short form) - Note Progress Note: Last Vital Signs Temp Pulse Resp BP Pulse Ox 98.9 F 81 16 131/54 99 06/13/17 10:00 06/13/17 10:00 06/13/17 10:00 06/13/17 10:00 06/13/17 09:00 CBC, BMP 06/13/17 08:55 06/13/17 08:55 Current Medications Generic Name Dose Route Start Last Admin Trade Name Freq PRN Reason Stop Dose Admin Acetaminophen 650 mg 06/12/17 12:53 Tylenol - PO Q4H PRN PAIN LEVEL 1-5 Chlorhexidine Gluconate 1 applic 06/13/17 20:00 Hibiclens For Decolonization - TP HS VAL Dexamethasone Sodium Phosphate 4 mg 06/12/17 15:00 06/13/17 09:46 Decadron Injection - IVPUSH 4 mg Q6H-IV VAL Administration Levetiracetam 1,000 mg 06/12/17 22:00 06/13/17 09:46 Keppra Injection - IVPB 1,000 mg BID VAL Administration Ondansetron HCl 4 mg 06/12/17 12:53 Zofran Injection IVPUSH Q6H PRN NAUSEA history of ? b/l Breast CA s/p bilateral mastectomy/implants ,in 2010, h.o RTto Lt. breast, no chemotherapy/hormonal therapy. Treated at [facility]. large rt. frontal lobe mass lesion 4.7 x 4cm with vasogenic edema and midline shift ?metastatic foci for NSG procedure as planned c/w present doses of steroids CT chest reviewed, other staging w.u when able to give ppi ppx
[2017-06-13] MEDS: PANTOPRAZOLE SODIUM 40 MG VIAL IVPUSH SCH (16:45)
[2017-06-13] MEDS ORDERED: CHLORHEXIDINE GLUCONATE 4% CLEANSER FOR DECOLONIZATION TP SCH (20:00)
[2017-06-14] MEDS: DEXAMETHASONE SOD PHOSPHATE 4 MG/1 ML VIAL IVPUSH SCH ×4 (03:16→22:12)
[2017-06-14 07:47] LABS: HEMATOCRIT 35.7 % (32.4-45.2); HEMOGLOBIN 11.6 GM/dL (10.7-15.3); LYMPH % 14.6 % (8-40); MCH 27.6 pg (25.7-33.7); MCHC 32.4 g/dl (32.0-36.0); MEAN PLT VOLUME 8.6 fl (7.5-11.1); MONO % 3.1 % (3.8-10.2); NEUT % 82.3 % (42.8-82.8); PLATELET COUNT 326 K/MM3 (134-434); RDW 16.1 % (11.6-15.6); WHITE BLOOD COUNT 11.1 K/mm3 (4.0-10.0)
[2017-06-14 08:32] LABS: CHLORIDE 107 mmol/L (98-107); POTASSIUM 4.8 mmol/L (3.5-5.1); SODIUM 142 mmol/L (136-145)
[2017-06-14 08:51] LABS: ANION GAP 11 (8-16); BLOOD UREA NITROGEN 12 mg/dL (7-18); CALCIUM 9.6 mg/dL (8.5-10.1); CO2 24 mmol/L (21-32); CREATININE 0.8 mg/dL (0.55-1.02); GLUCOSE,RANDOM 94 mg/dL (74-106); MAGNESIUM 2.3 mg/dL (1.8-2.4); PHOSPHOROUS 3.5 mg/dL (2.5-4.9)
--- NOTE | 2017-06-14 09:11 | CONSULT ---
Consult - text type - Consultation Consultation Note: NEUROSURGERY CONSULTATION Briseyda Cheung is a 51 [address] old patient of Dr. Kadeem Cohen who is a Breast cancer survivor and presented to the [facility] ER on Tuesday June 13, 2017 with a chief complaint of falling twice with a syncopal episode. She gives a history of being in relative good health and underwent recent herniorraphy which was uneventful. She has fallen twice recently and while in the shower that morning felt lightheaded. She does not describe any antecedent event or injury and is not aware of any convulsive activity. She denies hemiparesis, dysarthria or dizziness prior to this event. She denies headache, loss or change of vision or hearing, fevers, chills, chest pain, shortness of breath, nausea, vomiting, diarrhea, constipation, difficulty or pain on urination, swelling, numbness, or weakness. She did note a brief loss of consciousness associated with this event. CT demonstrates a dense, Right frontal lesion with significant vasogenic edema and subfalcine herniation with midline shift. MRI with and without contrast demonstrates a large, 6.3 cm dural based lesion associated with the Right frontal convexity and falx/superior sagittal sinus with deep extension under the falx and deviation of the pericallosal arteries. Although the two scans were obtained 24 hours apart, there is notable progression of the size of the tumor and midline shift which is concerning for rapid growth. The patient was emergently admitted and given IV steroids with GI prophylaxis as well as seizure prophylaxis. She improved on this regimen. Given her history of breast cancer and the tendency for metastatic breast cancer to present with dural based lesions, as well as the substantial edema and rapid growth, the leading diagnostic possibility is solitary breast metastasis. Second in the differential diagnosis is meningioma, possibly with pial invasion and third is high grade glioma. I had a long~discussion with the patient and family regarding the risks, benefits and~alternatives to stereotactic microsurgical resection of this lesion. I explained that the risks included, but were not limited to: , coma, paralysis, bleeding, infection, CSF leakage possibly requiring spinal drainage or additional surgery and failure to relieve her symptoms. All questions were answered. Informed consent was obtained. I explained that he was at an elevated risk for preoperative morbidity or mortality due to her medical comorbidities and that I would work with my Anesthesia colleagues and Dr. Jackson her covering PCP, to complete a careful preoperative evaluation and determination of her risks. The patient and her family were given time to contemplate their options. I offered them the option of seeking another opinion or another surgeon. All were in agreement with proceeding with a surgery as described. I explained that tumor adherence to the pericallosal arteries may be a risk and that if I could not safely remove this deep aspect of the mass, I may leave it for adjuvant treatment such as radiosurgery. I also explained that I was going to be traveling later in the week on a previously scheduled trip. I explained that if she was not doing very well, that I would postpone or cancel my trip and also offered the option of her transferring her care to another surgeon or another hospital if this situation was not acceptable to her. I explained that most likely, after a day or so that she would be recovering such that most of her care could be administered by the team at the hospital and that I would remain involved remotely and in constant communication with the team.
[2017-06-14] MEDS: levETIRAcetam 500 MG/5 ML INJECTION VIAL IVPB SCH ×2 (09:30→22:11)
[2017-06-14] MEDS: PANTOPRAZOLE SODIUM 40 MG VIAL IVPUSH SCH (09:30)
[2017-06-14] MEDS ORDERED: BACITRACIN 15 GM TUBE TOPICAL OINTMENT ONE (09:51)
--- NOTE | 2017-06-14 11:27 | EKG ---
Test Reason : Blood Pressure : / mmHG Vent. Rate : 051 BPM Atrial Rate : 051 BPM P-R Int : 140 ms QRS Dur : 100 ms QT Int : 412 ms P-R-T Axes : 070 022 000 degrees QTc Int : 379 ms SINUS BRADYCARDIA POSSIBLE INFERIOR INFARCT (CITED ON OR BEFORE 12-JUN-2017) ABNORMAL ECG WHEN COMPARED WITH ECG OF 12-JUN-2017 07:15, NO SIGNIFICANT CHANGE WAS FOUND Confirmed by KULWANT ROCHA MD ([id number]) on 06/14/2017 11:26:48 AM Referred By: BETSY RAHMAN DR Confirmed By:KULWANT ROCHA MD
[2017-06-14] MEDS ORDERED: LIDOCAINE HCL/PF 2% SDV 5ML VIAL ONE (12:01)
[2017-06-14] MEDS ORDERED: fentaNYL CITRATE 250 MCG/5 ML VIAL ONE ×2 (12:01→13:19)
[2017-06-14] MEDS ORDERED: PROPOFOL 20 ML ONE ×10 (12:02→13:36)
[2017-06-14] MEDS ORDERED: ROCURONIUM BROMIDE 50 MG/5 ML VIAL ONE ×3 (12:02→14:28)
[2017-06-14] MEDS ORDERED: ceFAZolin SODIUM 1 GM VIAL IVPB ONE ×2 (12:59→13:45)
[2017-06-14] MEDS ORDERED: VANCOMYCIN 1,000 MG VIAL (RESTRICTED TO ID ONLY) IVPB ONE ×2 (12:59→13:45)
[2017-06-14] MEDS ORDERED: LIDOCAINE 1%/EPI 1:100000 (20 ML MULTI DOSE VIAL) IJ ONE (13:10)
[2017-06-14] MEDS ORDERED: ceFAZolin SODIUM 1 GM VIAL ONE ×3 (13:31→21:57)
[2017-06-14] MEDS ORDERED: LABETALOL HCL 5 MG/1 ML (100MG/20 ML VIAL) ONE (13:37)
[2017-06-14] MEDS ORDERED: ESMOLOL HCL 100,000 MCG/10 ML VIAL ONE (13:38)
[2017-06-14] MEDS ORDERED: GELATIN, ABSORBABLE 100 EACH SPONGE TP ONE (13:45)
[2017-06-14] MEDS ORDERED: THROMBIN (BOVINE) 5,000 UNIT VIAL TP ONE (13:45)
[2017-06-14] MEDS ORDERED: DEXAMETHASONE SOD PHOSPHATE 4 MG/1 ML VIAL ONE (13:48)
[2017-06-14] MEDS ORDERED: ONDANSETRON 4 MG/2 ML VIAL ONE ×2 (13:48→14:49)
[2017-06-14] MEDS ORDERED: VANCOMYCIN 1,000 MG VIAL (RESTRICTED TO ID ONLY) ONE (14:00)
[2017-06-14] MEDS ORDERED: NEOSTIGMINE METHYLSULFATE 0.5 MG/ML - 10 ML MDV ONE (14:48)
[2017-06-14] MEDS ORDERED: GLYCOPYRROLATE 0.2 MG/1 ML VIAL ONE (14:49)
--- NOTE | 2017-06-14 15:35 | PN ---
Progress Note, Physician Chief Complaint: Ms Cheung is without complaint. No cp, sob, n/v. - Current Medication List Current Medications: Active Medications Acetaminophen (Tylenol -) 650 mg PO Q4H PRN PRN Reason: PAIN LEVEL 1-5 Dexamethasone Sodium Phosphate (Decadron Injection -) 4 mg IVPUSH Q6H-IV [facility] Last Admin: 06/14/17 14:12 Dose: Not Given Levetiracetam (Keppra Injection -) 1,000 mg IVPB BID [facility] Last Admin: 06/14/17 09:30 Dose: 1,000 mg Ondansetron HCl (Zofran Injection) 4 mg IVPUSH Q6H PRN PRN Reason: NAUSEA Pantoprazole Sodium (Protonix Iv) 40 mg IVPUSH DAILY [facility] Last Admin: 06/14/17 09:30 Dose: 40 mg - Objective Vital Signs: Vital Signs Temperature 36.8 C 06/14/17 08:58 Pulse Rate 54 L 06/14/17 08:58 Respiratory Rate 16 06/14/17 09:00 Blood Pressure 109/59 06/14/17 08:58 O2 Sat by Pulse Oximetry (%) 99 06/14/17 09:00 Constitutional: Yes: Well Nourished, No Distress, Calm Cardiovascular: Yes: Regular Rate and Rhythm. No: Gallop, Murmur, Rub Respiratory: Yes: Regular, CTA Bilaterally. No: Rales, Wheezes Gastrointestinal: Yes: Normal Bowel Sounds, Soft. No: Distention, Tenderness Extremities: Yes: WNL Edema: No Labs: CBC, BMP 06/14/17 05:20 06/14/17 05:20 INR, PTT INR 1.09 (0.82-1.09) 06/13/17 08:55 Problem List - Problems (1) Syncope Code(s): R55 - SYNCOPE AND COLLAPSE (2) Brain neoplasm Code(s): D49.6 - NEOPLASM OF UNSPECIFIED BEHAVIOR OF BRAIN (3) History of breast cancer Code(s): Z85.3 - PERSONAL HISTORY OF MALIGNANT NEOPLASM OF BREAST Assessment/Plan (1) Syncope Assessment/Plan: -suspect secondary to brain mass -ECHO and carotid ultrasound negative -monitor, has not recurred Code(s): R55 - SYNCOPE AND COLLAPSE (2) Brain neoplasm Assessment/Plan: -concern for metastatic breast cancer vs primary malignancy -continue decadron -plan for surgical intervention today Code(s): D49.6 - NEOPLASM OF UNSPECIFIED BEHAVIOR OF BRAIN (3) History of breast cancer Assessment/Plan: -treated with bilateral mastectomy and radiation -appreciate oncology assistance -s/p chest CT -continue staging after brain neoplasm addressed Code(s): Z85.3 - PERSONAL HISTORY OF MALIGNANT NEOPLASM OF BREAST
[2017-06-14] MEDS ORDERED: ONDANSETRON 4 MG/2 ML VIAL IVPUSH PRN ×3 (15:55→19:27)
[2017-06-14] MEDS ORDERED: SODIUM CHLORIDE 1,000 ML IV SCH (16:00)
[2017-06-14] MEDS ORDERED: LABETALOL HCL 5 MG/1 ML (100MG/20 ML VIAL) IVPUSH PRN ×2 (16:01→19:27)
[2017-06-14] MEDS ORDERED: oxyCODONE HCL 5 MG TABLET PO PRN (16:24)
[2017-06-14] MEDS: SODIUM CHLORIDE 1,000 ML IV SCH (16:30)
[2017-06-14] MEDS: ACETAMINOPHEN 1000 MG/100 ML VIAL (NON FORMULARY) IVPB ONE (16:45)
[2017-06-14] MEDS ORDERED: ACETAMINOPHEN INJECTION 100 ML IVPB ONE (16:46)
[2017-06-14] MEDS ORDERED: LABETALOL HCL INJECTION 1,000 MG in SODIUM CHLORIDE 800 ML IV SCH (17:00)
--- NOTE | 2017-06-14 17:07 | SURG ---
Surgery Tree Surgeon Helper Note Tree Surgeon Helper: Mora Bob PA-C Date of Service: 06/14/17 Diagnosis: right frontal lobe brain tumor Procedure: stereostatic right frontal craniotomy with microsurgical resection of brain tumor. I was present for the entirety of the operative procedure. For further detail, please refer to operative report. Visit type - Case Type Case Type: ED Admission - Emergency Emergency Visit: Yes ED Registration Date: 06/12/17 Care time: The patient presented to the Emergency Department on the above date and was hospitalized for further evaluation of their emergent condition. - New patient This patient is new to me today: Yes Date on this admission: 06/14/17
--- NOTE | 2017-06-14 17:07 | OP ---
Operative Note - Note: Operative Date: 06/14/17 Pre-Operative Diagnosis: right frontal lobe brain tumor Operation: stereostatic right frontal craniotomy with microsurgical resection of brain tumor. Post-Operative Diagnosis: Same as Pre-op Surgeon: Jelani Mascorro Special Education Classroom Aide: Mora Bob Anesthesiologist/POULTRY SERVICE TECHNICIAN: Judd Rudolph Anesthesia: General Specimens Removed: right frontal lobe brain tumor Estimated Blood Loss (mls): 300 Drains, Volume Out (mls): 75 (urine in huang) Fluid Volume Replaced (mls): 700 Operative Report Dictated: Yes
--- NOTE | 2017-06-14 20:54 | CONSULT ---
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 CT head significant for a dense right frontal lesion with significant vasogenic edema and subfalcine herniation with midline shift. MRI with and without contrast demonstrates a large, 6.3 cm dural based lesion associated with the Right frontal convexity and falx/superior sagittal sinus with deep extension under the falx and deviation of the pericallosal arteries. Although the two scans were obtained 24 hours apart, there is notable progression of the size of the tumor and midline shift which is concerning for rapid growth. Today she is s/p stereostatic right frontal craniotomy with microsurgical resection of brain tumor. In the OR EBL 300cc, IVF 700cc UOP 75cc. She was transferred to ICU for post-op management. In ICU rec'd lethargic but easily aroused, oriented x3 and moving all extremities. HR 54, BP 114/66 O2 sat 96 on NC 02 2L. No c/o pain. Repeat MRI read by Dr Torres. No bleed and tumor removed - History Source History Provided By: Medical Record Limitations to Obtaining History: Other (lethargic) - Past Medical History ...LMP: 12/30/15 Additional Medical History: Breast cancer - Past Surgical History Past Surgical History: Yes: Hernia Repair (hiatal), Mastectomy (b/l) - Alcohol/Substance Use Hx Alcohol Use: No History of Substance Use: reports: None - Smoking History Smoking history: Former smoker Have you smoked in the past 12 months: No Aproximately how many cigarettes per day: 0 If you are a former smoker, when did you quit?: 11YRS - Social History ADL: Independent History of Recent Travel: No Home Medications - Allergies Allergies/Adverse Reactions: Allergies Allergy/AdvReac Type Severity Reaction Status Date / Time codeine [Codeine] Allergy Mild Itching Verified 06/12/17 06:51 POWDER GLOVES Allergy Intermediate Rash Uncoded 06/12/17 06:51 - Home Medications Home Medications: Ambulatory Orders NK [No Known Home Medication] 05/10/17 Family Disease History - Family Disease History Family History: Unremarkable Family Disease History: Heart Disease: Mother (HTN), Respiratory: Brother ( asthma) Review of Systems Unable to obtain ROS, reason: Unable- lethargic Physical Exam Vital Signs: Vital Signs Temperature 98.0 F 06/14/17 19:00 Pulse Rate 55 L 06/14/17 20:00 Respiratory Rate 16 06/14/17 20:00 Blood Pressure 122/71 06/14/17 20:00 O2 Sat by Pulse Oximetry (%) 97 06/14/17 18:00 Constitutional: Yes: Well Nourished, No Distress Eyes: Yes: PERRL HENT: Yes: Other (Head dressing in place) Neck: Yes: Supple Cardiovascular: Yes: Bradycardia, S1, S2 Respiratory: Yes: Regular, CTA Bilaterally, On Nasal O2 Gastrointestinal: Yes: Soft, Hypoactive Bowel Sounds Renal/: Yes: Crystal Present Extremities: Yes: WNL Edema: No Peripheral Pulses WNL: Yes Integumentary: Yes: WNL Wound/Incision: Yes: Dressing Dry and Intact Neurological: Yes: Oriented, Lethargy ...Motor Strength: WNL Psychiatric: Yes: Alert, Oriented Labs: CBC, BMP 06/14/17 05:20 06/14/17 05:20 CBC,CMP WBC 11.1 K/mm3 (4.0-10.0) H 06/14/17 05:20 RBC 4.20 M/mm3 (3.60-5.2) 06/14/17 05:20 Hgb 11.6 GM/dL (10.7-15.3) 06/14/17 05:20 Hct 35.7 % (32.4-45.2) 06/14/17 05:20 MCV 85.0 fl (80-96) 06/14/17 05:20 MCH 27.6 pg (25.7-33.7) 06/14/17 05:20 MCHC 32.4 g/dl (32.0-36.0) 06/14/17 05:20 RDW 16.1 % (11.6-15.6) H 06/14/17 05:20 Plt Count 326 K/MM3 (134-434) 06/14/17 05:20 MPV 8.6 fl (7.5-11.1) 06/14/17 05:20 Neutrophils % 82.3 % (42.8-82.8) 06/14/17 05:20 Lymphocytes % 14.6 % (8-40) 06/14/17 05:20 Monocytes % 3.1 % (3.8-10.2) L D 06/14/17 05:20 Eosinophils % 0.0 % (0-4.5) 06/14/17 05:20 Basophils % 0.0 % (0-2.0) 06/14/17 05:20 Sodium 142 mmol/L (136-145) 06/14/17 05:20 Potassium 4.8 mmol/L (3.5-5.1) 06/14/17 05:20 Chloride 107 mmol/L (98-107) 06/14/17 05:20 Carbon Dioxide 24 mmol/L (21-32) 06/14/17 05:20 Anion Gap 11 (8-16) 06/14/17 05:20 BUN 12 mg/dL (7-18) 06/14/17 05:20 Creatinine 0.8 mg/dL (0.55-1.02) 06/14/17 05:20 Creat Clearance w eGFR 58.00 (>60) 06/12/17 07:45 Random Glucose 94 mg/dL (74-106) 06/14/17 05:20 Calcium 9.6 mg/dL (8.5-10.1) 06/14/17 05:20 Phosphorus 3.5 mg/dL (2.5-4.9) 06/14/17 05:20 Magnesium 2.3 mg/dL (1.8-2.4) 06/14/17 05:20 Total Bilirubin 0.3 mg/dL (0.2-1.0) D 06/12/17 07:45 AST 25 U/L (15-37) 06/12/17 07:45 ALT 28 U/L (12-78) 06/12/17 07:45 Alkaline Phosphatase 107 U/L (45-117) 06/12/17 07:45 Creatine Kinase 95 IU/L (26-192) 06/12/17 07:45 Troponin I < 0.02 ng/ml (0.00-0.05) 06/12/17 07:45 Total Protein 8.4 g/dl (6.4-8.2) H 06/12/17 07:45 Albumin 3.4 g/dl (3.4-5.0) 06/12/17 07:45 Cyauo-5-Gzcjlrffr (%) Cancelled 06/13/17 08:55 Sfbgm-0-Kbgnamdom (%) Cancelled 06/13/17 08:55 Beta Globulins (%) Cancelled 06/13/17 08:55 Gamma Globulins (%) Cancelled 06/13/17 08:55 M-Dwight % Cancelled 06/13/17 08:55 Serum , Qual Indeterminate 06/14/17 12:22 Current Medications Acetaminophen (Tylenol -) 650 mg PO Q4H PRN PRN Reason: PAIN LEVEL 1-5 Chlorhexidine Gluconate (Hibiclens For Decolonization -) 1 applic TP HS [facility] Last Admin: 06/14/17 22:11 Dose: 1 applic Dexamethasone Sodium Phosphate (Decadron Injection -) 4 mg IVPUSH Q6H-IV [facility] Last Admin: 06/14/17 22:12 Dose: 4 mg Fentanyl (Sublimaze Injection -) 50 mcg IVPUSH [id number] PRN PRN Reason: PAIN-PACU ORDER X 4 DOSES ONLY Heparin Sodium (Porcine) (Heparin -) 5,000 unit SQ TID [facility] Sodium Chloride (Normal Saline -) 1,000 mls @ 40 mls/hr IV ASDIR VAL Last Admin: 06/14/17 16:30 Dose: 40 mls/hr Cefazolin Sodium 1 gm/ (Dextrose) 50 mls @ 100 mls/hr IVPB Q8H-IV VAL Stop: 06/15/17 02:29 Last Admin: 06/14/17 22:12 Dose: 100 mls/hr Labetalol HCl 1,000 mg/ Sodium (Chloride) 1,000 mls @ 120 mls/hr IV TITR VAL PRN Reason: 2 MG/MIN Labetalol HCl (Normodyne Injection -) 10 mg IVPUSH [id number] PRN PRN Reason: HYPERTENSION Levetiracetam (Keppra Injection -) 1,000 mg IVPB BID [facility] Last Admin: 06/14/17 22:11 Dose: 1,000 mg Morphine Sulfate (Morphine Sulfate) 2 mg IVPUSH Q3H PRN PRN Reason: Breakthrough pain Last Admin: 06/14/17 22:26 Dose: 2 mg Mupirocin (Bactroban Ointment (For Decolonization) -) 1 applic NS BID [facility] Stop: 06/19/17 21:59 Last Admin: 06/14/17 22:11 Dose: 1 applic Ondansetron HCl (Zofran Injection) 4 mg IVPUSH Q6H PRN PRN Reason: NAUSEA Ondansetron HCl (Zofran Injection) 4 mg IVPUSH Q6H PRN PRN Reason: NAUSEA AND/OR VOMITING Oxycodone HCl (Roxicodone -) 5 mg PO Q4H PRN PRN Reason: PAIN LEVEL 4-6 Oxycodone HCl (Roxicodone -) 10 mg PO Q4H PRN PRN Reason: PAIN LEVEL 7-10 Pantoprazole Sodium (Protonix Iv) 40 mg IVPUSH DAILY [facility] Imaging - Results X-ray: Report Reviewed Cat Scan: Report Reviewed Problem List - Problems (1) Brain neoplasm Code(s): D49.6 - NEOPLASM OF UNSPECIFIED BEHAVIOR OF BRAIN (2) History of breast cancer Code(s): Z85.3 - PERSONAL HISTORY OF MALIGNANT NEOPLASM OF BREAST (3) Syncope Code(s): R55 - SYNCOPE AND COLLAPSE (4) Abdominal pain Code(s): R10.9 - UNSPECIFIED ABDOMINAL PAIN Qualifiers: Abdominal location: upper abdomen, unspecified Qualified Code(s): R10.10 - Upper abdominal pain, unspecified (5) Achilles tendinitis of left lower extremity Code(s): M76.62 - ACHILLES TENDINITIS, LEFT LEG Assessment/Plan 51yow with hx of breast Ca, now with new fast growing brain leasin, today s/p stereostatic right frontal craniotomywith microsugical resection of brain tumor. Plan: -Neuro check q1 -HD monitoring -NPO for now -Cont IV fluids. -cont post-op Kefzol -Cont decadron and keppra -IVF -Monitor CBC -Monitor UOP and electrlytes -Morphine IV for pain -SCDs GRISEL Littlejohn CC time 35mins
[2017-06-14] MEDS ORDERED: DEXTROSE 5%-WATER - 50 ML IVPB ONE (21:58)
[2017-06-14] MEDS: MUPIROCIN 2% TOPICAL OINTMENT FOR DECOLONIZATION NS SCH (22:11)
[2017-06-14] MEDS: CHLORHEXIDINE GLUCONATE 4% CLEANSER FOR DECOLONIZATION TP SCH (22:11)
[2017-06-14] MEDS: CEFAZOLIN 1 GM in DEXTROSE 5%-WATER - 50 ML IVPB SCH (22:12)
[2017-06-14] MEDS: morphine SULFATE 4 MG/ML VIAL IVPUSH PRN (22:26)
[2017-06-15] MEDS ORDERED: ceFAZolin SODIUM 1 GM VIAL ONE (00:59)
[2017-06-15] MEDS ORDERED: DEXTROSE 5%-WATER - 50 ML IVPB ONE (00:59)
[2017-06-15] MEDS: CEFAZOLIN 1 GM in DEXTROSE 5%-WATER - 50 ML IVPB SCH (01:13)
[2017-06-15] MEDS: DEXAMETHASONE SOD PHOSPHATE 4 MG/1 ML VIAL IVPUSH SCH (02:38)
[2017-06-15 05:28] LABS: HEMATOCRIT 33.5 % (32.4-45.2); HEMOGLOBIN 10.9 GM/dL (10.7-15.3); MCH 27.8 pg (25.7-33.7); MCHC 32.6 g/dl (32.0-36.0); MEAN CELL VOLUME 85.3 fl (80-96); MEAN PLT VOLUME 8.7 fl (7.5-11.1); PLATELET COUNT 279 K/MM3 (134-434); RBC 3.93 M/mm3 (3.60-5.2); RDW 16.1 % (11.6-15.6); WHITE BLOOD COUNT 13.4 K/mm3 (4.0-10.0)
[2017-06-15 06:01] LABS: ALK PHOS 83 U/L (45-117); ANION GAP 9 (8-16); BILIRUBIN,TOTAL 0.3 mg/dL (0.2-1.0); BLOOD UREA NITROGEN 12 mg/dL (7-18); CALCIUM 8.9 mg/dL (8.5-10.1); CHLORIDE 108 mmol/L (98-107); CO2 26 mmol/L (21-32); GLUCOSE,RANDOM 109 mg/dL (74-106); POTASSIUM 4.8 mmol/L (3.5-5.1); SGOT/AST 19 U/L (15-37); SGPT/ALT 23 U/L (12-78); SODIUM 143 mmol/L (136-145); TOT PROT 7.6 g/dl (6.4-8.2)
[2017-06-15] MEDS: HEPARIN NA (PORCINE) 5,000 UNITS/ML 1ML VIAL SQ SCH ×3 (06:02→22:08)
--- NOTE | 2017-06-15 07:46 | PN ---
Progress Note (short form) - Note Progress Note: Patient is doing well on Post operative day #1 after Right frontal craniotomy and microsurgical resection of Brain tumor. Preliminary pathology (Frozen section) consistent with metastasis. Given her history of Breast cancer, this is the most likely primary source. Postoperative MRI demonstrates gross total resection with preservation of the pericallosal arteries. Hemostatic material is noted and a small amount of CSF in the resection bed as can be expected. Patient awakens easily to voice and speaks clearly. She complains of some discomfort from her pressure dressing which can be removed on Monday. Blood pressure has been stable. PLAN -Physical Therapy -Check final Pathology -Incentive Spirometer -May taper steroids -Continue Keppra -Heplock IV and advance diet to regular -OOB to chair, ambulating with assistance -GI/DVT prophylaxis -May leave ICU to regular room (Patient requests private room on 8W) -Pressure dressing may be removed Monday (Patient requested that WILLIAM drain be avoided if possible due to bad experience after Mastectomy)
[2017-06-15] MEDS: PANTOPRAZOLE SODIUM 40 MG VIAL IVPUSH SCH (10:09)
[2017-06-15] MEDS: ACETAMINOPHEN 325 MG TABLET (FP) PO PRN ×4 (10:09→22:07)
[2017-06-15] MEDS: levETIRAcetam 500 MG/5 ML INJECTION VIAL IVPB SCH ×2 (10:09→22:09)
[2017-06-15] MEDS: MUPIROCIN 2% TOPICAL OINTMENT FOR DECOLONIZATION NS SCH ×2 (10:11→22:08)
--- NOTE | 2017-06-15 10:17 | PN ---
Progress Note, Physician Chief Complaint: Ms Cheung says the wrapping is tight but otherwise she is doing well. Denies headache, chest pain, shortness of breath, nausea/vomiting. - Current Medication List Current Medications: Active Medications Acetaminophen (Tylenol -) 650 mg PO Q4H PRN PRN Reason: PAIN LEVEL 1-5 Last Admin: 06/15/17 10:09 Dose: 650 mg Chlorhexidine Gluconate (Hibiclens For Decolonization -) 1 applic TP HS [facility] Last Admin: 06/14/17 22:11 Dose: 1 applic Dexamethasone (Decadron -) 4 mg PO Q6HPO [facility] Stop: 06/16/17 06:01 Dexamethasone (Decadron -) 4 mg PO TID [facility] Stop: 06/17/17 06:01 Dexamethasone (Decadron -) 4 mg PO BID@0600,1800 [facility] Stop: 06/18/17 06:01 Dexamethasone (Decadron -) 4 mg PO ONCE@0600 ONE Stop: 06/19/17 06:01 Fentanyl (Sublimaze Injection -) 50 mcg IVPUSH [id number] PRN PRN Reason: PAIN-PACU ORDER X 4 DOSES ONLY Heparin Sodium (Porcine) (Heparin -) 5,000 unit SQ TID [facility] Last Admin: 06/15/17 06:02 Dose: 5,000 unit Sodium Chloride (Normal Saline -) 1,000 mls @ 40 mls/hr IV ASDIR [facility] Last Admin: 06/14/17 16:30 Dose: 40 mls/hr Labetalol HCl (Normodyne Injection -) 10 mg IVPUSH [id number] PRN PRN Reason: HYPERTENSION Levetiracetam (Keppra Injection -) 1,000 mg IVPB BID [facility] Last Admin: 06/15/17 10:09 Dose: 1,000 mg Morphine Sulfate (Morphine Sulfate) 2 mg IVPUSH Q3H PRN PRN Reason: Breakthrough pain Last Admin: 06/14/17 22:26 Dose: 2 mg Mupirocin (Bactroban Ointment (For Decolonization) -) 1 applic NS BID [facility] Stop: 06/19/17 21:59 Last Admin: 06/15/17 10:11 Dose: 1 applic Ondansetron HCl (Zofran Injection) 4 mg IVPUSH Q6H PRN PRN Reason: NAUSEA Ondansetron HCl (Zofran Injection) 4 mg IVPUSH Q6H PRN PRN Reason: NAUSEA AND/OR VOMITING Oxycodone HCl (Roxicodone -) 5 mg PO Q4H PRN PRN Reason: PAIN LEVEL 4-6 Oxycodone HCl (Roxicodone -) 10 mg PO Q4H PRN PRN Reason: PAIN LEVEL 7-10 Pantoprazole Sodium (Protonix Iv) 40 mg IVPUSH DAILY [facility] Last Admin: 06/15/17 10:09 Dose: 40 mg - Objective Vital Signs: Vital Signs Temperature 36.9 C 06/15/17 06:00 Pulse Rate 68 06/15/17 08:00 Respiratory Rate 18 06/15/17 09:00 Blood Pressure 126/90 06/15/17 08:00 O2 Sat by Pulse Oximetry (%) 97 06/15/17 09:00 Constitutional: Yes: Well Nourished, No Distress, Calm HENT: Yes: Other (head wrapped) Cardiovascular: Yes: Regular Rate and Rhythm. No: Gallop, Murmur, Rub Respiratory: Yes: Regular, CTA Bilaterally. No: Rales, Rhonchi, Wheezes Gastrointestinal: Yes: Normal Bowel Sounds, Soft. No: Distention, Tenderness Extremities: Yes: WNL Edema: No Labs: CBC, BMP 06/15/17 05:18 06/15/17 05:18 INR, PTT INR 1.09 (0.82-1.09) 06/13/17 08:55 Problem List - Problems (1) Syncope Code(s): R55 - SYNCOPE AND COLLAPSE (2) Brain neoplasm Code(s): D49.6 - NEOPLASM OF UNSPECIFIED BEHAVIOR OF BRAIN (3) History of breast cancer Code(s): Z85.3 - PERSONAL HISTORY OF MALIGNANT NEOPLASM OF BREAST Assessment/Plan (1) Syncope Assessment/Plan: -suspect secondary to brain mass -ECHO and carotid ultrasound negative -monitor, has not recurred Code(s): R55 - SYNCOPE AND COLLAPSE (2) Brain neoplasm Assessment/Plan: -appreciate neurosurgical intervention -s/p surgery -follow up biopsies -neurosurgery and oncology following -wound care and steroids per neurosurgery Code(s): D49.6 - NEOPLASM OF UNSPECIFIED BEHAVIOR OF BRAIN (3) History of breast cancer Assessment/Plan: -treated with bilateral mastectomy and radiation -appreciate oncology assistance -s/p chest CT -continue staging after brain neoplasm addressed Code(s): Z85.3 - PERSONAL HISTORY OF MALIGNANT NEOPLASM OF BREAST
[2017-06-15] MEDS: morphine SULFATE 4 MG/ML VIAL IVPUSH PRN ×2 (12:25→22:09)
[2017-06-15] MEDS: DEXAMETHASONE 4 MG TABLET (FP) PO SCH ×3 (12:29→23:34)
--- NOTE | 2017-06-15 12:49 | PN ---
Teaching Attending Note Name of Resident: Parish Jones ATTENDING PHYSICIAN STATEMENT I saw and evaluated the patient. I reviewed the resident's note and discussed the case with the resident. I agree with the resident's findings and plan as documented. SUBJECTIVE: Patient seen and examined in the ICU. Awake and alert. No nausea, vomiting, LUIS, BOV, etc. Intake & Output 06/12/17 06/13/17 06/14/17 06/15/17 23:59 23:59 23:59 23:59 Intake Total 50 1050 1290 720 Output Total 1000 900 Balance 50 1050 290 -180 Weight 180 lb 176 lb 6.4 oz Last Vital Signs Temp Pulse Resp BP Pulse Ox 98.4 F 68 18 126/90 97 06/15/17 06:00 06/15/17 08:00 06/15/17 09:00 06/15/17 08:00 06/15/17 09:00 Active Medications Acetaminophen (Tylenol -) 650 mg PO Q4H PRN PRN Reason: PAIN LEVEL 1-5 Last Admin: 06/15/17 10:09 Dose: 650 mg Chlorhexidine Gluconate (Hibiclens For Decolonization -) 1 applic TP HS [facility] Last Admin: 06/14/17 22:11 Dose: 1 applic Dexamethasone (Decadron -) 4 mg PO Q6HPO [facility] Stop: 06/16/17 06:01 Last Admin: 06/15/17 12:29 Dose: 4 mg Dexamethasone (Decadron -) 4 mg PO TID [facility] Stop: 06/17/17 06:01 Dexamethasone (Decadron -) 4 mg PO BID@0600,1800 [facility] Stop: 06/18/17 06:01 Dexamethasone (Decadron -) 4 mg PO ONCE@0600 ONE Stop: 06/19/17 06:01 Fentanyl (Sublimaze Injection -) 50 mcg IVPUSH [id number] PRN PRN Reason: PAIN-PACU ORDER X 4 DOSES ONLY Heparin Sodium (Porcine) (Heparin -) 5,000 unit SQ TID [facility] Last Admin: 06/15/17 06:02 Dose: 5,000 unit Sodium Chloride (Normal Saline -) 1,000 mls @ 40 mls/hr IV ASDIR [facility] Last Admin: 06/14/17 16:30 Dose: 40 mls/hr Labetalol HCl (Normodyne Injection -) 10 mg IVPUSH [id number] PRN PRN Reason: HYPERTENSION Levetiracetam (Keppra Injection -) 1,000 mg IVPB BID [facility] Last Admin: 06/15/17 10:09 Dose: 1,000 mg Morphine Sulfate (Morphine Sulfate) 2 mg IVPUSH Q3H PRN PRN Reason: Breakthrough pain Last Admin: 06/15/17 12:25 Dose: 2 mg Mupirocin (Bactroban Ointment (For Decolonization) -) 1 applic NS BID [facility] Stop: 06/19/17 21:59 Last Admin: 06/15/17 10:11 Dose: 1 applic Ondansetron HCl (Zofran Injection) 4 mg IVPUSH Q6H PRN PRN Reason: NAUSEA Ondansetron HCl (Zofran Injection) 4 mg IVPUSH Q6H PRN PRN Reason: NAUSEA AND/OR VOMITING Oxycodone HCl (Roxicodone -) 5 mg PO Q4H PRN PRN Reason: PAIN LEVEL 4-6 Last Admin: 06/15/17 10:10 Dose: 5 mg Oxycodone HCl (Roxicodone -) 10 mg PO Q4H PRN PRN Reason: PAIN LEVEL 7-10 Pantoprazole Sodium (Protonix Iv) 40 mg IVPUSH DAILY [facility] Last Admin: 06/15/17 10:09 Dose: 40 mg Constitutional: Yes: Awake and alert, NAD Eyes: Yes: PERRL HENT: Yes: Other (Head dressing in place) Neck: Yes: Supple Cardiovascular: Yes: Bradycardia, S1, S2 Respiratory: Yes: Regular, CTA Bilaterally, On Nasal O2 Gastrointestinal: Yes: Soft, Hypoactive Bowel Sounds Renal/: Yes: Crystal Present Extremities: Yes: WNL Edema: No Peripheral Pulses WNL: Yes Integumentary: Yes: WNL Wound/Incision: Yes: Dressing Dry and Intact Neurological: Yes: Oriented, Non-focal ...Motor Strength: WNL Psychiatric: Yes: Alert, Oriented Labs: Laboratory Results - last 24 hr 06/14/17 06/15/17 06/15/17 12:22 05:18 05:18 WBC 13.4 H RBC 3.93 Hgb 10.9 Hct 33.5 MCV 85.3 MCH 27.8 MCHC 32.6 RDW 16.1 H Plt Count 279 MPV 8.7 Sodium 143 Potassium 4.8 Chloride 108 H Carbon Dioxide 26 Anion Gap 9 BUN 12 Creatinine 1.0 Creat Clearance w eGFR 58.00 Random Glucose 109 H Calcium 8.9 Total Bilirubin 0.3 AST 19 ALT 23 Alkaline Phosphatase 83 Total Protein 7.6 Albumin 3.0 L Serum , Qual Indeterminate HIV 1&2 Antibody Screen HIV P24 Antigen 06/15/17 06/15/17 05:18 09:47 WBC RBC Hgb Hct MCV MCH MCHC RDW Plt Count MPV Sodium Potassium Chloride Carbon Dioxide Anion Gap BUN Creatinine Creat Clearance w eGFR Random Glucose Calcium Total Bilirubin AST ALT 24 Alkaline Phosphatase Total Protein Albumin Serum , Qual HIV 1&2 Antibody Screen Negative HIV P24 Antigen Negative Problem List - Problems (1) Brain neoplasm Code(s): D49.6 - NEOPLASM OF UNSPECIFIED BEHAVIOR OF BRAIN (2) History of breast cancer Code(s): Z85.3 - PERSONAL HISTORY OF MALIGNANT NEOPLASM OF BREAST (3) Syncope Code(s): R55 - SYNCOPE AND COLLAPSE (4) Abdominal pain Code(s): R10.9 - UNSPECIFIED ABDOMINAL PAIN Qualifiers: Abdominal location: upper abdomen, unspecified Qualified Code(s): R10.10 - Upper abdominal pain, unspecified (5) Achilles tendinitis of left lower extremity Code(s): M76.62 - ACHILLES TENDINITIS, LEFT LEG Assessment/Plan POD #1 Stereostatic right frontal craniotomy with microsugical resection of brain tumor. Plan: -Neuro checks -HD monitoring -PO as tolerated -Patient received post-op Kefzol -Decadron and keppra per Neurosurgery -Monitor UOP and electrolytes -Morphine IV for pain -SCDs for VTE prophylaxis Dr uH Critical care time spent in reviewing chart, evaluating patient and formulating plan - 36 minutes.
--- NOTE | 2017-06-15 13:25 | PN ---
Physical Exam: SUBJECTIVE: Patient seen and examined in ICU. No acute events overnight. Complains of pain around her head. Denies fevers, chills, nausea, vomiting. OBJECTIVE: Vital Signs Period Temp Pulse Resp BP Sys/Vasquez Pulse Ox Last 24 Hr 97.8 F-98.7 F 54-79 15-22 110-132/58-90 97-100 GENERAL: The patient is awake, alert, and fully oriented, in no acute distress. HEAD: Normal with no signs of trauma. EYES: PERRL, extraocular movements intact, sclera anicteric, conjunctiva clear. LUNGS: Breath sounds equal, clear to auscultation bilaterally, no wheezes, no crackles, no accessory muscle use. HEART: Regular rate and rhythm, S1, S2 without murmur, rub or gallop. ABDOMEN: Soft, nontender, nondistended, normoactive bowel sounds, no guarding, no rebound, no hepatosplenomegaly, no masses. EXTREMITIES: 2+ pulses, warm, well-perfused, no edema. NEUROLOGICAL: Cranial nerves II through XII grossly intact. Moves all 4 extremities Gait not observed. SKIN: Warm, dry, normal turgor, no rashes or lesions noted Laboratory Results - last 24 hr 06/14/17 06/15/17 06/15/17 12:22 05:18 05:18 WBC 13.4 H RBC 3.93 Hgb 10.9 Hct 33.5 MCV 85.3 MCH 27.8 MCHC 32.6 RDW 16.1 H Plt Count 279 MPV 8.7 Sodium 143 Potassium 4.8 Chloride 108 H Carbon Dioxide 26 Anion Gap 9 BUN 12 Creatinine 1.0 Creat Clearance w eGFR 58.00 Random Glucose 109 H Calcium 8.9 Total Bilirubin 0.3 AST 19 ALT 23 Alkaline Phosphatase 83 Total Protein 7.6 Albumin 3.0 L Serum , Qual Indeterminate HIV 1&2 Antibody Screen HIV P24 Antigen 06/15/17 06/15/17 05:18 09:47 WBC RBC Hgb Hct MCV MCH MCHC RDW Plt Count MPV Sodium Potassium Chloride Carbon Dioxide Anion Gap BUN Creatinine Creat Clearance w eGFR Random Glucose Calcium Total Bilirubin AST ALT 24 Alkaline Phosphatase Total Protein Albumin Serum , Qual HIV 1&2 Antibody Screen Negative HIV P24 Antigen Negative Active Medications Generic Name Dose Route Start Last Admin Trade Name Freq PRN Reason Stop Dose Admin Acetaminophen 650 mg 06/14/17 19:27 06/15/17 10:09 Tylenol - PO 650 mg Q4H PRN Administration PAIN LEVEL 1-5 Chlorhexidine Gluconate 1 applic 06/14/17 22:00 06/14/17 22:11 Hibiclens For Decolonization - TP 1 applic HS VAL Administration Dexamethasone 4 mg 06/15/17 12:00 06/15/17 12:29 Decadron - PO 06/16/17 06:01 4 mg Q6HPO VAL Administration Dexamethasone 4 mg 06/16/17 14:00 Decadron - PO 06/17/17 06:01 TID VAL Dexamethasone 4 mg 06/17/17 18:00 Decadron - PO 06/18/17 06:01 BID@0600,1800 VAL Dexamethasone 4 mg 06/19/17 06:00 Decadron - PO 06/19/17 06:01 ONCE@0600 ONE Fentanyl 50 mcg 06/14/17 19:27 Sublimaze Injection - IVPUSH [id number] PRN PAIN-PACU ORDER X 4 DOSES ONLY Heparin Sodium (Porcine) 5,000 unit 06/15/17 06:00 06/15/17 06:02 Heparin - SQ 5,000 unit TID VAL Administration Sodium Chloride 1,000 mls @ 40 mls/hr 06/14/17 16:30 06/14/17 16:30 Normal Saline - IV 40 mls/hr ASDIR VAL Administration Labetalol HCl 10 mg 06/14/17 19:27 Normodyne Injection - IVPUSH [id number] PRN HYPERTENSION Levetiracetam 1,000 mg 06/14/17 22:00 06/15/17 10:09 Keppra Injection - IVPB 1,000 mg BID [facility] Administration Morphine Sulfate 2 mg 06/14/17 16:26 06/15/17 12:25 Morphine Sulfate IVPUSH 2 mg Q3H PRN Administration Breakthrough pain Mupirocin 1 applic 06/14/17 22:00 06/15/17 10:11 Bactroban Ointment (For Decolonization) - NS 06/19/17 21:59 1 applic BID VAL Administration Ondansetron HCl 4 mg 06/14/17 19:27 Zofran Injection IVPUSH Q6H PRN NAUSEA Ondansetron HCl 4 mg 06/14/17 19:27 Zofran Injection IVPUSH Q6H PRN NAUSEA AND/OR VOMITING Oxycodone HCl 5 mg 06/14/17 16:24 06/15/17 10:10 Roxicodone - PO 5 mg Q4H PRN Administration PAIN LEVEL 4-6 Oxycodone HCl 10 mg 06/14/17 16:25 Roxicodone - PO Q4H PRN PAIN LEVEL 7-10 Pantoprazole Sodium 40 mg 06/15/17 10:00 06/15/17 10:09 Protonix Iv IVPUSH 40 mg DAILY [facility] Administration ASSESSMENT/PLAN: 51F with history of breast cancer s/p mastectomy in the ICU s/p removal of frontal lobe mass. Neuro #S/P frontal lobe mass removal -Neuro checks as per neurosurgery -Dexamethasone -Keppra -Oxycodone and tylenol PRN Heme/Onc #Brain mass, likely metastatic breast cancer -Chest CT negative, pending -Further workup outside of ICU per primary team and heme/onc PPx - protonix and heparin Dispo - transfer to 8th floor Visit type - Emergency Visit Emergency Visit: Yes ED Registration Date: 06/12/17 Care time: The patient presented to the Emergency Department on the above date and was hospitalized for further evaluation of their emergent condition. - New Patient This patient is new to me today: Yes Date on this admission: 06/15/17 - Critical Care Critical Care patient: Yes Total Critical Care Time (in minutes): 35 Critical Care Statement: The care of this patient involved high complexity decision making to prevent further life threatening deterioration of the patient 's condition and/or to evaluate & treat vital organ system(s) failure or risk of failure.
[2017-06-15] MEDS: oxyCODONE HCL 5 MG TABLET PO PRN ×2 (15:10→18:54)
--- NOTE | 2017-06-15 15:51 | HOSP ---
Subjective - Review of Symptoms Events since last encounter: Patient experienced an episode of syncope during physical therapy session. Patient was in wheelchair and getting up to go to the bathroom. Then she stated she needed to "put herself together". While transferring her from wheelchair back to the bed, she became slightly unresponsive to verbal command. BP at that time was 96/60s and HR was ~100 while her baseline BP and HR have been within normal range. After patient was put back in bed, she quickly regained consciousness and responded to verbal command. The syncope was likely secondary to vasovagal and orthostasis. The patient will remain in the ICU and be monitored closely. Physical Examination Vital Signs: Vital Signs Temperature 100.3 F H 06/15/17 14:00 Pulse Rate 89 06/15/17 14:00 Respiratory Rate 22 06/15/17 14:00 Blood Pressure 120/71 06/15/17 14:00 O2 Sat by Pulse Oximetry (%) 97 06/15/17 10:00 Labs: CBC, BMP 06/15/17 05:18 06/15/17 05:18 Visit type - Emergency Visit Emergency Visit: No - New Patient This patient is new to me today: Yes Date on this admission: 06/15/17 - Critical Care Critical Care patient: Yes Total Critical Care Time (in minutes): 30 Critical Care Statement: The care of this patient involved high complexity decision making to prevent further life threatening deterioration of the patient 's condition and/or to evaluate & treat vital organ system(s) failure or risk of failure.
[2017-06-15] MEDS: SODIUM CHLORIDE 1,000 ML IV SCH (17:00)
--- NOTE | 2017-06-15 21:20 | PN ---
Progress Note, Physician Chief Complaint: Pt. sitting up comfortably in bed, pain controlled, no GA complaints. - Current Medication List Current Medications: Active Medications Acetaminophen (Tylenol -) 650 mg PO Q4H PRN PRN Reason: PAIN LEVEL 1-5 Last Admin: 06/15/17 18:00 Dose: 650 mg Chlorhexidine Gluconate (Hibiclens For Decolonization -) 1 applic TP HS [facility] Last Admin: 06/14/17 22:11 Dose: 1 applic Dexamethasone (Decadron -) 4 mg PO Q6HPO [facility] Stop: 06/16/17 06:01 Last Admin: 06/15/17 18:49 Dose: 4 mg Dexamethasone (Decadron -) 4 mg PO TID [facility] Stop: 06/17/17 06:01 Dexamethasone (Decadron -) 4 mg PO BID@0600,1800 [facility] Stop: 06/18/17 06:01 Dexamethasone (Decadron -) 4 mg PO ONCE@0600 ONE Stop: 06/19/17 06:01 Fentanyl (Sublimaze Injection -) 50 mcg IVPUSH [id number] PRN PRN Reason: PAIN-PACU ORDER X 4 DOSES ONLY Heparin Sodium (Porcine) (Heparin -) 5,000 unit SQ TID [facility] Last Admin: 06/15/17 14:50 Dose: 5,000 unit Sodium Chloride (Normal Saline -) 1,000 mls @ 40 mls/hr IV ASDIR [facility] Last Admin: 06/15/17 17:00 Dose: 40 mls/hr Labetalol HCl (Normodyne Injection -) 10 mg IVPUSH [id number] PRN PRN Reason: HYPERTENSION Levetiracetam (Keppra Injection -) 1,000 mg IVPB BID [facility] Last Admin: 06/15/17 10:09 Dose: 1,000 mg Morphine Sulfate (Morphine Sulfate) 2 mg IVPUSH Q3H PRN PRN Reason: Breakthrough pain Last Admin: 06/15/17 12:25 Dose: 2 mg Mupirocin (Bactroban Ointment (For Decolonization) -) 1 applic NS BID [facility] Stop: 06/19/17 21:59 Last Admin: 06/15/17 10:11 Dose: 1 applic Ondansetron HCl (Zofran Injection) 4 mg IVPUSH Q6H PRN PRN Reason: NAUSEA Last Admin: 06/15/17 15:10 Dose: 4 mg Ondansetron HCl (Zofran Injection) 4 mg IVPUSH Q6H PRN PRN Reason: NAUSEA AND/OR VOMITING Oxycodone HCl (Roxicodone -) 5 mg PO Q4H PRN PRN Reason: PAIN LEVEL 4-6 Last Admin: 06/15/17 10:10 Dose: 5 mg Oxycodone HCl (Roxicodone -) 10 mg PO Q4H PRN PRN Reason: PAIN LEVEL 7-10 Last Admin: 06/15/17 18:54 Dose: 10 mg Pantoprazole Sodium (Protonix Iv) 40 mg IVPUSH DAILY [facility] Last Admin: 06/15/17 10:09 Dose: 40 mg - Objective Vital Signs: Vital Signs Temperature 99.3 F 06/15/17 18:00 Pulse Rate 80 06/15/17 20:00 Respiratory Rate 20 06/15/17 20:00 Blood Pressure 106/65 06/15/17 20:00 O2 Sat by Pulse Oximetry (%) 98 06/15/17 20:55 Constitutional: Yes: Well Nourished, No Distress, Calm Neurological: Yes: WNL, Alert, Oriented Labs: CBC, BMP 06/15/17 05:18 06/15/17 05:18 INR, PTT INR 1.09 (0.82-1.09) 06/13/17 08:55 Assessment/Plan POD#1 s/p craniotomy with tumor excision under GA. Doing well. D/C from anesthesia care.
[2017-06-15] MEDS: CHLORHEXIDINE GLUCONATE 4% CLEANSER FOR DECOLONIZATION TP SCH (22:08)
[2017-06-16] MEDS: HEPARIN NA (PORCINE) 5,000 UNITS/ML 1ML VIAL SQ SCH ×3 (05:55→21:57)
[2017-06-16] MEDS: DEXAMETHASONE 4 MG TABLET (FP) PO SCH (05:56)
[2017-06-16] MEDS: oxyCODONE HCL 5 MG TABLET PO PRN (06:18)
[2017-06-16] MEDS: ACETAMINOPHEN 325 MG TABLET (FP) PO PRN (06:18)
[2017-06-16 06:45] LABS: HEMATOCRIT 32.9 % (32.4-45.2); HEMOGLOBIN 10.9 GM/dL (10.7-15.3); MCH 28.1 pg (25.7-33.7); MEAN PLT VOLUME 8.8 fl (7.5-11.1); PLATELET COUNT 261 K/MM3 (134-434); RBC 3.87 M/mm3 (3.60-5.2); RDW 16.1 % (11.6-15.6); WHITE BLOOD COUNT 12.6 K/mm3 (4.0-10.0)
[2017-06-16 07:00] LABS: ALBUMIN 2.9 g/dl (3.4-5.0); BLOOD UREA NITROGEN 9 mg/dL (7-18); CALCIUM 9.1 mg/dL (8.5-10.1); CHLORIDE 105 mmol/L (98-107); GLUCOSE,RANDOM 86 mg/dL (74-106); POTASSIUM 4.5 mmol/L (3.5-5.1); SGOT/AST 21 U/L (15-37); SGPT/ALT 21 U/L (12-78); SODIUM 142 mmol/L (136-145)
[2017-06-16 07:02] LABS: ALK PHOS 76 U/L (45-117); ANION GAP 9 (8-16); BILIRUBIN,TOTAL 0.6 mg/dL (0.2-1.0); CO2 28 mmol/L (21-32); CREATININE 0.8 mg/dL (0.55-1.02); TOT PROT 7.5 g/dl (6.4-8.2)
[2017-06-16 08:09] LABS: HBsAG SCREEN Negative (Negative)
--- NOTE | 2017-06-16 08:12 | PN ---
Progress Note (short form) - Note Progress Note: Surgery POD #2 right fontal lobe tumor resection. Patient experienced an episode of near syncope likely secondary to vasovagal and orthostasis while getting up with Physical Therapy yesterday. Patient was placed back in bed where she was stable and remained stable throughout the day. She is seen and examined at bedside, c/o headache and discomfort appropriate to status, most likely 2/2 the pressure dressing. She denies any blurred vision, dizziness, CP, SOB, or vomiting. She is tolerating a regular diet but states she has little appetite. Vital Signs Temp 99.0 F 06/16/17 06:00 Pulse 74 06/16/17 06:00 Resp 20 06/16/17 06:00 BP 125/69 06/16/17 06:00 Pulse Ox 98 06/15/17 20:55 Intake & Output 06/15/17 06/15/17 06/16/17 11:59 23:59 11:59 Intake Total 720 1600 480 Output Total 900 1800 400 Balance -180 -200 80 Weight 176 lb 6.4 oz 172 lb 6 oz Intake: IV 480 680 280 Normal Saline - 1,000 ml 480 680 280 @ 40 mls/hr IV ASDIR VAL Rx#:[id number] IVPB 200 Oral 240 720 200 Output: Urine 900 1800 400 Crystal 900 1000 Void 800 400 Other: Voiding Method Indwelling Catheter Bedpan # Unmeasured Voids Void 3 Bowel Movement No Weight Measurement Method Built in Bedscale Built in Bedscale CBC, BMP 06/16/17 06:10 06/16/17 06:10 PE: A&Ox3, NAD unlabored resp on RA Dressing C/D/I. Small diffuse edema over eyelids b/l, no evidence of tracking erythema. No evidence of lid lag. Patient able to squeeze hands ( L weak on at baseline pre-op), B/L LE compartments soft and non-tender, SCDS in place. 5/5 dorsi/plantar flexion b/l with +2 pedal pulses Problem List - Problems (1) Brain neoplasm Assessment/Plan: s/p tumor resection doing well. 1) continue DVT Prophylaxis b/l scds and SQ haparin 2) OOB with assist- fall risk 3) maintain head dressing-to be removed by nursing Monday06/17/17 4) encourage daily IS 5) transfer to floor today if stable. Code(s): D49.6 - NEOPLASM OF UNSPECIFIED BEHAVIOR OF BRAIN
[2017-06-16] MEDS: PANTOPRAZOLE SODIUM 40 MG VIAL IVPUSH SCH (09:51)
[2017-06-16] MEDS: levETIRAcetam 500 MG/5 ML INJECTION VIAL IVPB SCH ×2 (09:51→21:55)
--- NOTE | 2017-06-16 10:52 | PN ---
Progress Note (short form) - Note Progress Note: Pt seen and examined. \ says she is tired. +fatigue says her bandage is tight. CBC, BMP O/E: General: NAD. appears fatigued Cor: RSR, No murmurs, No gallops Lungs: Clear to P&A Abd: Soft, Normal bowel sounds, No organomegaly Ext:No significant edema 06/16/17 06:10 06/16/17 06:10 Current Medications Generic Name Dose Route Start Last Admin Trade Name Freq PRN Reason Stop Dose Admin Acetaminophen 650 mg 06/14/17 19:27 06/16/17 06:18 Tylenol - PO 650 mg Q4H PRN Administration PAIN LEVEL 1-5 Chlorhexidine Gluconate 1 applic 06/14/17 22:00 06/15/17 22:08 Hibiclens For Decolonization - TP 1 applic HS VAL Administration Dexamethasone 4 mg 06/16/17 14:00 Decadron - PO 06/17/17 06:01 TID VAL Dexamethasone 4 mg 06/17/17 18:00 Decadron - PO 06/18/17 06:01 BID@0600,1800 VAL Dexamethasone 4 mg 06/19/17 06:00 Decadron - PO 06/19/17 06:01 ONCE@0600 ONE Fentanyl 50 mcg 06/14/17 19:27 Sublimaze Injection - IVPUSH [id number] PRN PAIN-PACU ORDER X 4 DOSES ONLY Heparin Sodium (Porcine) 5,000 unit 06/15/17 06:00 06/16/17 05:55 Heparin - SQ 5,000 unit TID VAL Administration Sodium Chloride 1,000 mls @ 40 mls/hr 06/14/17 16:30 06/15/17 17:00 Normal Saline - IV 40 mls/hr ASDIR VAL Administration Labetalol HCl 10 mg 06/14/17 19:27 Normodyne Injection - IVPUSH [id number] PRN HYPERTENSION Levetiracetam 1,000 mg 06/14/17 22:00 06/16/17 09:51 Keppra Injection - IVPB 1,000 mg BID VAL Administration Morphine Sulfate 2 mg 06/14/17 16:26 06/15/17 22:09 Morphine Sulfate IVPUSH 2 mg Q3H PRN Administration Breakthrough pain Mupirocin 1 applic 06/14/17 22:00 06/15/17 22:08 Bactroban Ointment (For Decolonization) - NS 06/19/17 21:59 1 applic BID VAL Administration Ondansetron HCl 4 mg 06/14/17 19:27 06/15/17 15:10 Zofran Injection IVPUSH 4 mg Q6H PRN Administration NAUSEA Ondansetron HCl 4 mg 06/14/17 19:27 Zofran Injection IVPUSH Q6H PRN NAUSEA AND/OR VOMITING Oxycodone HCl 5 mg 06/14/17 16:24 06/15/17 10:10 Roxicodone - PO 5 mg Q4H PRN Administration PAIN LEVEL 4-6 Oxycodone HCl 10 mg 06/14/17 16:25 06/16/17 06:18 Roxicodone - PO 10 mg Q4H PRN Administration PAIN LEVEL 7-10 Pantoprazole Sodium 40 mg 06/15/17 10:00 06/16/17 09:51 Protonix Iv IVPUSH 40 mg DAILY VAL Administration Last Vital Signs Temp Pulse Resp BP Pulse Ox 98.8 F 88 16 111/68 98 06/16/17 09:58 06/16/17 09:58 06/16/17 09:58 06/16/17 09:58 06/15/17 20:55 c/w steroids Will await final pathology continue care per ICU/NSG
--- NOTE | 2017-06-16 12:01 | PN ---
Progress Note, Physician Chief Complaint: Ms Cheung complains of tightness of the bandage. Also says she feels tired. No cp, sob, n/v. - Current Medication List Current Medications: Active Medications Acetaminophen (Tylenol -) 650 mg PO Q4H PRN PRN Reason: PAIN LEVEL 1-5 Last Admin: 06/16/17 06:18 Dose: 650 mg Chlorhexidine Gluconate (Hibiclens For Decolonization -) 1 applic TP HS [facility] Last Admin: 06/15/17 22:08 Dose: 1 applic Dexamethasone (Decadron -) 4 mg PO TID [facility] Stop: 06/17/17 06:01 Dexamethasone (Decadron -) 4 mg PO BID@0600,1800 [facility] Stop: 06/18/17 06:01 Dexamethasone (Decadron -) 4 mg PO ONCE@0600 ONE Stop: 06/19/17 06:01 Fentanyl (Sublimaze Injection -) 50 mcg IVPUSH [id number] PRN PRN Reason: PAIN-PACU ORDER X 4 DOSES ONLY Heparin Sodium (Porcine) (Heparin -) 5,000 unit SQ TID [facility] Last Admin: 06/16/17 05:55 Dose: 5,000 unit Sodium Chloride (Normal Saline -) 1,000 mls @ 40 mls/hr IV ASDIR [facility] Last Admin: 06/15/17 17:00 Dose: 40 mls/hr Labetalol HCl (Normodyne Injection -) 10 mg IVPUSH [id number] PRN PRN Reason: HYPERTENSION Levetiracetam (Keppra Injection -) 1,000 mg IVPB BID [facility] Last Admin: 06/16/17 09:51 Dose: 1,000 mg Morphine Sulfate (Morphine Sulfate) 2 mg IVPUSH Q3H PRN PRN Reason: Breakthrough pain Last Admin: 06/15/17 22:09 Dose: 2 mg Mupirocin (Bactroban Ointment (For Decolonization) -) 1 applic NS BID [facility] Stop: 06/19/17 21:59 Last Admin: 06/15/17 22:08 Dose: 1 applic Ondansetron HCl (Zofran Injection) 4 mg IVPUSH Q6H PRN PRN Reason: NAUSEA Last Admin: 06/15/17 15:10 Dose: 4 mg Ondansetron HCl (Zofran Injection) 4 mg IVPUSH Q6H PRN PRN Reason: NAUSEA AND/OR VOMITING Oxycodone HCl (Roxicodone -) 5 mg PO Q4H PRN PRN Reason: PAIN LEVEL 4-6 Last Admin: 06/15/17 10:10 Dose: 5 mg Oxycodone HCl (Roxicodone -) 10 mg PO Q4H PRN PRN Reason: PAIN LEVEL 7-10 Last Admin: 06/16/17 06:18 Dose: 10 mg Pantoprazole Sodium (Protonix Iv) 40 mg IVPUSH DAILY VAL Last Admin: 06/16/17 09:51 Dose: 40 mg - Objective Vital Signs: Vital Signs Temperature 37.1 C 06/16/17 09:58 Pulse Rate 88 06/16/17 09:58 Respiratory Rate 16 06/16/17 09:58 Blood Pressure 111/68 06/16/17 09:58 O2 Sat by Pulse Oximetry (%) 98 06/15/17 20:55 Constitutional: Yes: Well Nourished, No Distress, Calm HENT: Yes: Other (head wrapped) Cardiovascular: Yes: Regular Rate and Rhythm. No: Gallop, Murmur, Rub Respiratory: Yes: Regular, CTA Bilaterally. No: Rales, Rhonchi, Wheezes Gastrointestinal: Yes: Normal Bowel Sounds, Soft. No: Distention, Tenderness Extremities: Yes: WNL Edema: No Labs: CBC, BMP 06/16/17 06:10 06/16/17 06:10 INR, PTT INR 1.09 (0.82-1.09) 06/13/17 08:55 Problem List - Problems (1) Syncope Code(s): R55 - SYNCOPE AND COLLAPSE (2) Brain neoplasm Code(s): D49.6 - NEOPLASM OF UNSPECIFIED BEHAVIOR OF BRAIN (3) History of breast cancer Code(s): Z85.3 - PERSONAL HISTORY OF MALIGNANT NEOPLASM OF BREAST Assessment/Plan (1) Syncope Assessment/Plan: -suspect secondary to brain mass -resolved Code(s): R55 - SYNCOPE AND COLLAPSE (2) Brain neoplasm Assessment/Plan: -appreciate neurosurgical intervention -s/p surgery -follow up biopsies -neurosurgery and oncology following -wound care and steroids per neurosurgery Code(s): D49.6 - NEOPLASM OF UNSPECIFIED BEHAVIOR OF BRAIN (3) History of breast cancer Assessment/Plan: -treated with bilateral mastectomy and radiation -appreciate oncology assistance -s/p chest CT -continue staging after brain neoplasm addressed Code(s): Z85.3 - PERSONAL HISTORY OF MALIGNANT NEOPLASM OF BREAST
--- NOTE | 2017-06-16 12:49 | PN ---
Teaching Attending Note Name of Resident: Parish Jones ATTENDING PHYSICIAN STATEMENT I saw and evaluated the patient. I reviewed the resident's note and discussed the case with the resident. I agree with the resident's findings and plan as documented. SUBJECTIVE: Patient seen and examined in the ICU. Awake and alert. Noted that she had a suspected vasovagal response yesterday after that she quickly recovered from. No other acute events overnight. No nausea, vomiting, LUIS, BOV, etc. Intake & Output 06/13/17 06/14/17 06/15/17 06/16/17 23:59 23:59 23:59 23:59 Intake Total 1050 1290 2320 480 Output Total 1000 2700 400 Balance 1050 290 -380 80 Weight 176 lb 6.4 oz 172 lb 6 oz Last Vital Signs Temp Pulse Resp BP Pulse Ox 98.8 F 88 16 111/68 98 06/16/17 12:00 06/16/17 12:00 06/16/17 12:00 06/16/17 12:00 06/15/17 20:55 Active Medications Acetaminophen (Tylenol -) 650 mg PO Q4H PRN PRN Reason: PAIN LEVEL 1-5 Last Admin: 06/16/17 06:18 Dose: 650 mg Chlorhexidine Gluconate (Hibiclens For Decolonization -) 1 applic TP HS [facility] Last Admin: 06/15/17 22:08 Dose: 1 applic Dexamethasone (Decadron -) 4 mg PO TID [facility] Stop: 06/17/17 06:01 Dexamethasone (Decadron -) 4 mg PO BID@0600,1800 [facility] Stop: 06/18/17 06:01 Dexamethasone (Decadron -) 4 mg PO ONCE@0600 ONE Stop: 06/19/17 06:01 Fentanyl (Sublimaze Injection -) 50 mcg IVPUSH [id number] PRN PRN Reason: PAIN-PACU ORDER X 4 DOSES ONLY Heparin Sodium (Porcine) (Heparin -) 5,000 unit SQ TID [facility] Last Admin: 06/16/17 05:55 Dose: 5,000 unit Sodium Chloride (Normal Saline -) 1,000 mls @ 40 mls/hr IV ASDIR [facility] Last Admin: 06/15/17 17:00 Dose: 40 mls/hr Labetalol HCl (Normodyne Injection -) 10 mg IVPUSH [id number] PRN PRN Reason: HYPERTENSION Levetiracetam (Keppra Injection -) 1,000 mg IVPB BID [facility] Last Admin: 06/16/17 09:51 Dose: 1,000 mg Morphine Sulfate (Morphine Sulfate) 2 mg IVPUSH Q3H PRN PRN Reason: Breakthrough pain Last Admin: 06/15/17 22:09 Dose: 2 mg Mupirocin (Bactroban Ointment (For Decolonization) -) 1 applic NS BID [facility] Stop: 06/19/17 21:59 Last Admin: 06/15/17 22:08 Dose: 1 applic Ondansetron HCl (Zofran Injection) 4 mg IVPUSH Q6H PRN PRN Reason: NAUSEA Last Admin: 06/15/17 15:10 Dose: 4 mg Ondansetron HCl (Zofran Injection) 4 mg IVPUSH Q6H PRN PRN Reason: NAUSEA AND/OR VOMITING Oxycodone HCl (Roxicodone -) 5 mg PO Q4H PRN PRN Reason: PAIN LEVEL 4-6 Last Admin: 06/15/17 10:10 Dose: 5 mg Oxycodone HCl (Roxicodone -) 10 mg PO Q4H PRN PRN Reason: PAIN LEVEL 7-10 Last Admin: 06/16/17 06:18 Dose: 10 mg Pantoprazole Sodium (Protonix Iv) 40 mg IVPUSH DAILY [facility] Last Admin: 06/16/17 09:51 Dose: 40 mg Constitutional: Yes: Awake and alert, NAD Eyes: Yes: PERRL HENT: Yes: Other (Head dressing in place) Neck: Yes: Supple Cardiovascular: Yes: S1, S2 regular Respiratory: Yes: Regular, CTA Bilaterally, On Nasal O2 Gastrointestinal: Yes: Soft, Hypoactive Bowel Sounds Renal/: Yes: Crystal Present Extremities: Yes: WNL Edema: No Peripheral Pulses WNL: Yes Integumentary: Yes: WNL Wound/Incision: Yes: Dressing Dry and Intact Neurological: Yes: Oriented, Non-focal ...Motor Strength: WNL Psychiatric: Yes: Alert, Oriented Labs: Laboratory Results - last 24 hr 06/13/17 06/15/17 06/16/17 08:55 09:47 06:10 WBC RBC Hgb Hct MCV MCH MCHC RDW Plt Count MPV Sodium 142 Potassium 4.5 Chloride 105 Carbon Dioxide 28 Anion Gap 9 BUN 9 Creatinine 0.8 Creat Clearance w eGFR > 60 Random Glucose 86 Calcium 9.1 Total Bilirubin 0.6 D AST 21 ALT 21 Alkaline Phosphatase 76 Total Protein 7.5 Albumin 2.9 L Kjftu-4-Lwgrbwgjf (%) Cancelled Lwvrn-9-Jtxklhgna (%) Cancelled Beta Globulins 1.0 Beta Globulins (%) Cancelled Gamma Globulins (%) Cancelled M-Dwight % Cancelled CHASIDY & SPEP Interp Total Protein (CHASIDY) 8.1 Albumin (CHASIDY) 3.4 Albumin/Globulin (CHASIDY) 0.8 Oaikx-1-Zfgnsfmaw CHASIDY 0.3 Odfum-9-Yrzplqibm CHASIDY 1.3 H Gamma Globulins (CHASIDY) 2.1 H CHASIDY M-Dwight 1.6 H CHASIDY Comments IEP IgG 2169 H IEP IgA 86 L IEP IgM 212 Hep Bs Antigen Negative Hep C Ab Diagnostic <0.1 Liver Fibrosis Interp Ref Test Comments Cancelled 06/16/17 06:10 WBC 12.6 H RBC 3.87 Hgb 10.9 Hct 32.9 MCV 85.0 MCH 28.1 MCHC 33.0 RDW 16.1 H Plt Count 261 MPV 8.8 Sodium Potassium Chloride Carbon Dioxide Anion Gap BUN Creatinine Creat Clearance w eGFR Random Glucose Calcium Total Bilirubin AST ALT Alkaline Phosphatase Total Protein Albumin Pkjpa-5-Fpyuxebth (%) Soidv-5-Krqnzyznn (%) Beta Globulins Beta Globulins (%) Gamma Globulins (%) M-Dwight % CHASIDY & SPEP Interp Total Protein (CHASIDY) Albumin (CHASIDY) Albumin/Globulin (CHASIDY) Xpgjg-7-Onzermkcs CHASIDY Sccdv-0-Hghbrnygf CHASIDY Gamma Globulins (CHASIDY) CHASIDY M-Dwight CHASIDY Comments IEP IgG IEP IgA IEP IgM Hep Bs Antigen Hep C Ab Diagnostic Liver Fibrosis Interp Ref Test Comments Problem List - Problems (1) Brain neoplasm Code(s): D49.6 - NEOPLASM OF UNSPECIFIED BEHAVIOR OF BRAIN (2) History of breast cancer Code(s): Z85.3 - PERSONAL HISTORY OF MALIGNANT NEOPLASM OF BREAST (3) Syncope Code(s): R55 - SYNCOPE AND COLLAPSE (4) Abdominal pain Code(s): R10.9 - UNSPECIFIED ABDOMINAL PAIN Qualifiers: Abdominal location: upper abdomen, unspecified Qualified Code(s): R10.10 - Upper abdominal pain, unspecified (5) Achilles tendinitis of left lower extremity Code(s): M76.62 - ACHILLES TENDINITIS, LEFT LEG Assessment/Plan POD #2 Stereostatic right frontal craniotomy with microsugical resection of brain tumor. S/P vasovagal episode Plan: -Neuro checks -HD monitoring -PO as tolerated -Decadron and keppra per Neurosurgery -Monitor UOP and electrolytes -Morphine IV for pain -SCDs for VTE prophylaxis -Transfer if OK with Neurosurgery Dr Hu Critical care time spent in reviewing chart, evaluating patient and formulating plan - 36 minutes.
--- NOTE | 2017-06-16 13:49 | PN ---
Physical Exam: SUBJECTIVE: Patient seen and examined in ICU. Patient had vasovagal episode of syncope yesterday afternoon during PT. Patient stable overnight. Patient only complains of dressing around head being too tight. Denies fevers, chlls, nausea , vomiting, and chest pain. OBJECTIVE: Vital Signs Period Temp Pulse Resp BP Sys/Vasquez Pulse Ox Last 24 Hr 98.6 F-100.3 F 72-96 16-22 105-125/60-73 97-98 GENERAL: The patient is awake, alert, and fully oriented, in no acute distress. EYES: PERRL, extraocular movements intact, sclera anicteric, conjunctiva clear. NECK: Trachea midline, full range of motion, supple. LUNGS: Breath sounds equal, clear to auscultation bilaterally, no wheezes, no crackles, no accessory muscle use. HEART: Regular rate and rhythm, S1, S2 without murmur, rub or gallop. ABDOMEN: Soft, nontender, nondistended, normoactive bowel sounds, no guarding, no rebound, no hepatosplenomegaly, no masses. NEUROLOGICAL: Cranial nerves II through XII grossly intact. Normal speech, gait not observed. Laboratory Results - last 24 hr 06/13/17 06/15/17 06/16/17 08:55 09:47 06:10 WBC RBC Hgb Hct MCV MCH MCHC RDW Plt Count MPV Sodium 142 Potassium 4.5 Chloride 105 Carbon Dioxide 28 Anion Gap 9 BUN 9 Creatinine 0.8 Creat Clearance w eGFR > 60 Random Glucose 86 Calcium 9.1 Total Bilirubin 0.6 D AST 21 ALT 21 Alkaline Phosphatase 76 Total Protein 7.5 Albumin 2.9 L Mnozr-7-Bxhjybrbv (%) Cancelled Yfpec-9-Xchpvkgjt (%) Cancelled Beta Globulins 1.0 Beta Globulins (%) Cancelled Gamma Globulins (%) Cancelled M-Dwight % Cancelled CHASIDY & SPEP Interp Total Protein (CHASIDY) 8.1 Albumin (CHASIDY) 3.4 Albumin/Globulin (CHASIDY) 0.8 Uhqcc-5-Zmxcbvyru CHASIDY 0.3 Ftcbc-8-Daylaqdap CHASIDY 1.3 H Gamma Globulins (CHASIDY) 2.1 H CHASIDY M-Dwight 1.6 H CHASIDY Comments IEP IgG 2169 H IEP IgA 86 L IEP IgM 212 Hep Bs Antigen Negative Hep C Ab Diagnostic <0.1 Liver Fibrosis Interp Ref Test Comments Cancelled 06/16/17 06:10 WBC 12.6 H RBC 3.87 Hgb 10.9 Hct 32.9 MCV 85.0 MCH 28.1 MCHC 33.0 RDW 16.1 H Plt Count 261 MPV 8.8 Sodium Potassium Chloride Carbon Dioxide Anion Gap BUN Creatinine Creat Clearance w eGFR Random Glucose Calcium Total Bilirubin AST ALT Alkaline Phosphatase Total Protein Albumin Ldxsr-3-Gthreqabz (%) Carjs-8-Ohwnmagkk (%) Beta Globulins Beta Globulins (%) Gamma Globulins (%) M-Dwight % CHASIDY & SPEP Interp Total Protein (CHASIDY) Albumin (CHASIDY) Albumin/Globulin (CHASIDY) Cecvf-0-Yyetzpqqk CHASIDY Jlwsy-3-Hssrtufry CHASIDY Gamma Globulins (CHASIDY) CHASIDY M-Dwight CHASIDY Comments IEP IgG IEP IgA IEP IgM Hep Bs Antigen Hep C Ab Diagnostic Liver Fibrosis Interp Ref Test Comments Active Medications Generic Name Dose Route Start Last Admin Trade Name Freq PRN Reason Stop Dose Admin Acetaminophen 650 mg 06/14/17 19:27 06/16/17 06:18 Tylenol - PO 650 mg Q4H PRN Administration PAIN LEVEL 1-5 Chlorhexidine Gluconate 1 applic 06/14/17 22:00 06/15/17 22:08 Hibiclens For Decolonization - TP 1 applic HS VAL Administration Dexamethasone 4 mg 06/16/17 14:00 Decadron - PO 06/17/17 06:01 TID VAL Dexamethasone 4 mg 06/17/17 18:00 Decadron - PO 06/18/17 06:01 BID@0600,1800 VAL Dexamethasone 4 mg 06/19/17 06:00 Decadron - PO 06/19/17 06:01 ONCE@0600 ONE Fentanyl 50 mcg 06/14/17 19:27 Sublimaze Injection - IVPUSH [id number] PRN PAIN-PACU ORDER X 4 DOSES ONLY Heparin Sodium (Porcine) 5,000 unit 06/15/17 06:00 06/16/17 05:55 Heparin - SQ 5,000 unit TID VAL Administration Sodium Chloride 1,000 mls @ 40 mls/hr 06/14/17 16:30 06/15/17 17:00 Normal Saline - IV 40 mls/hr ASDIR VAL Administration Labetalol HCl 10 mg 06/14/17 19:27 Normodyne Injection - IVPUSH [id number] PRN HYPERTENSION Levetiracetam 1,000 mg 06/14/17 22:00 06/16/17 09:51 Keppra Injection - IVPB 1,000 mg BID VAL Administration Morphine Sulfate 2 mg 06/14/17 16:26 06/15/17 22:09 Morphine Sulfate IVPUSH 2 mg Q3H PRN Administration Breakthrough pain Mupirocin 1 applic 06/14/17 22:00 06/15/17 22:08 Bactroban Ointment (For Decolonization) - NS 06/19/17 21:59 1 applic BID VAL Administration Ondansetron HCl 4 mg 06/14/17 19:27 06/15/17 15:10 Zofran Injection IVPUSH 4 mg Q6H PRN Administration NAUSEA Ondansetron HCl 4 mg 06/14/17 19:27 Zofran Injection IVPUSH Q6H PRN NAUSEA AND/OR VOMITING Oxycodone HCl 5 mg 06/14/17 16:24 06/15/17 10:10 Roxicodone - PO 5 mg Q4H PRN Administration PAIN LEVEL 4-6 Oxycodone HCl 10 mg 06/14/17 16:25 06/16/17 06:18 Roxicodone - PO 10 mg Q4H PRN Administration PAIN LEVEL 7-10 Pantoprazole Sodium 40 mg 06/15/17 10:00 06/16/17 09:51 Protonix Iv IVPUSH 40 mg DAILY VAL Administration ASSESSMENT/PLAN: 51F with history of breast cancer s/p mastectomy in the ICU s/p removal of frontal lobe mass. Neuro #S/P frontal lobe mass removal -Neuro checks as per neurosurgery -Dexamethasone -Keppra -Oxycodone and tylenol PRN CV #Syncope -Likely vasovagal, no events today Heme/Onc #Brain mass, likely metastatic breast cancer -Chest CT negative, pending -Further workup outside of ICU per primary team and heme/onc PPx - protonix and heparin Dispo - transfer to 8th floor Visit type - Emergency Visit Emergency Visit: Yes ED Registration Date: 06/12/17 Care time: The patient presented to the Emergency Department on the above date and was hospitalized for further evaluation of their emergent condition. - New Patient This patient is new to me today: No - Critical Care Critical Care patient: Yes Total Critical Care Time (in minutes): 35 Critical Care Statement: The care of this patient involved high complexity decision making to prevent further life threatening deterioration of the patient 's condition and/or to evaluate & treat vital organ system(s) failure or risk of failure.
[2017-06-16] MEDS ORDERED: DEXAMETHASONE 4 MG TABLET (FP) PO SCH ×2 (14:00→22:00)
[2017-06-16] MEDS: MUPIROCIN 2% TOPICAL OINTMENT FOR DECOLONIZATION NS SCH ×2 (15:25→21:55)
[2017-06-16] MEDS ORDERED: oxyCODONE HCL 5 MG TABLET PO PRN ×2 (16:26)
[2017-06-16] MEDS ORDERED: LABETALOL HCL 5 MG/1 ML (100MG/20 ML VIAL) IVPUSH PRN (16:26)
[2017-06-16] MEDS ORDERED: morphine SULFATE 4 MG/ML VIAL IVPUSH PRN (16:26)
[2017-06-16] MEDS ORDERED: ONDANSETRON 4 MG/2 ML VIAL IVPUSH PRN ×2 (16:26)
[2017-06-16] MEDS ORDERED: ACETAMINOPHEN 325 MG TABLET (FP) PO PRN (16:26)
[2017-06-16 16:53] VITALS: BMI 30.2
[2017-06-16] MEDS: SODIUM CHLORIDE 1,000 ML IV SCH (18:12)
[2017-06-16] MEDS: ACETAMINOPHEN 1000 MG/100 ML VIAL (NON FORMULARY) IVPB ONE (18:34)
[2017-06-16] MEDS: CHLORHEXIDINE GLUCONATE 4% CLEANSER FOR DECOLONIZATION TP SCH (21:56)
[2017-06-17] MEDS: HEPARIN NA (PORCINE) 5,000 UNITS/ML 1ML VIAL SQ SCH ×3 (06:29→21:38)
[2017-06-17 07:45] LABS: BASO % 0.1 % (0-2.0); HEMATOCRIT 30.7 % (32.4-45.2); MCH 27.5 pg (25.7-33.7); MCHC 32.6 g/dl (32.0-36.0); MEAN CELL VOLUME 84.5 fl (80-96); MONO % 7.4 % (3.8-10.2); NEUT % 78.5 % (42.8-82.8); PLATELET COUNT 253 K/MM3 (134-434); RBC 3.63 M/mm3 (3.60-5.2); RDW 15.6 % (11.6-15.6); WHITE BLOOD COUNT 14.4 K/mm3 (4.0-10.0)
[2017-06-17 08:58] LABS: ALBUMIN 2.8 g/dl (3.4-5.0); ANION GAP 9 (8-16); BILIRUBIN,TOTAL 0.5 mg/dL (0.2-1.0); BLOOD UREA NITROGEN 10 mg/dL (7-18); CHLORIDE 104 mmol/L (98-107); CO2 27 mmol/L (21-32); CREATININE 0.6 mg/dL (0.55-1.02); GLUCOSE,RANDOM 88 mg/dL (74-106); MAGNESIUM 2.4 mg/dL (1.8-2.4); PHOSPHOROUS 3.1 mg/dL (2.5-4.9); POTASSIUM 4.1 mmol/L (3.5-5.1); SGOT/AST 23 U/L (15-37); SGPT/ALT 32 U/L (12-78); SODIUM 140 mmol/L (136-145); TOT PROT 7.4 g/dl (6.4-8.2)
[2017-06-17 08:59] LABS: ALK PHOS 80 U/L (45-117)
[2017-06-17] MEDS: levETIRAcetam 500 MG/5 ML INJECTION VIAL IVPB SCH ×2 (09:04→21:38)
[2017-06-17] MEDS: PANTOPRAZOLE SODIUM 40 MG VIAL IVPUSH SCH (09:05)
--- NOTE | 2017-06-17 10:31 | PN ---
Progress Note (short form) - Note Progress Note: Seen in follow up. No new complaints. Discharged from ICU. Meds reviewed. Current Medications Generic Name Dose Route Start Last Admin Trade Name Freq PRN Reason Stop Dose Admin Acetaminophen 650 mg 06/16/17 16:26 06/16/17 18:33 Tylenol - PO 650 mg Q4H PRN Administration PAIN LEVEL 1-5 Chlorhexidine Gluconate 1 applic 06/16/17 22:00 06/16/17 21:56 Hibiclens For Decolonization - TP Not Given HS VAL Dexamethasone 4 mg 06/19/17 06:00 Decadron - PO 06/19/17 06:01 ONCE@0600 ONE Dexamethasone 4 mg 06/17/17 18:00 Decadron - PO 06/18/17 06:01 BID@0600,1800 VAL Heparin Sodium (Porcine) 5,000 unit 06/16/17 22:00 06/17/17 06:29 Heparin - SQ 5,000 unit TID VAL Administration Sodium Chloride 1,000 mls @ 40 mls/hr 06/16/17 16:26 06/16/17 18:12 Normal Saline - IV Not Given ASDIR VAL Levetiracetam 1,000 mg 06/16/17 22:00 06/17/17 09:04 Keppra Injection - IVPB 1,000 mg BID VAL Administration Morphine Sulfate 2 mg 06/16/17 16:26 06/17/17 03:12 Morphine Sulfate IVPUSH 2 mg Q3H PRN Administration Breakthrough pain Mupirocin 1 applic 06/16/17 22:00 06/16/17 21:55 Bactroban Ointment (For Decolonization) - NS 06/19/17 21:59 Not Given BID VAL Ondansetron HCl 4 mg 06/16/17 16:26 Zofran Injection IVPUSH Q6H PRN NAUSEA Ondansetron HCl 4 mg 06/16/17 16:26 Zofran Injection IVPUSH Q6H PRN NAUSEA AND/OR VOMITING Oxycodone HCl 5 mg 06/16/17 16:26 Roxicodone - PO Q4H PRN PAIN LEVEL 4-6 Oxycodone HCl 10 mg 06/16/17 16:26 Roxicodone - PO Q4H PRN PAIN LEVEL 7-10 Pantoprazole Sodium 40 mg 06/17/17 10:00 06/17/17 09:05 Protonix Iv IVPUSH 40 mg DAILY VAL Administration On exam: Last Vital Signs Temp Pulse Resp BP Pulse Ox 99.1 F 86 20 112/72 98 06/17/17 06:00 06/17/17 06:00 06/17/17 06:00 06/17/17 06:00 06/16/17 21:00 General: In no acute distress. Extremities: No pallor or icterus, no pedal edema. Chest:breathing confortably Abdomen: Soft, no organomegaly, no masses. Neuro: Alert, oriented, non-focal. CVS: Normal sinus rhythm H and N: Head dressed. CBC, BMP 06/17/17 06:00 06/17/17 06:00 Assessment. History of breast cancer, now with new cerebral mass, suspected metastatic lesion, s/p resection, pathology pending. Awaiting results.
--- NOTE | 2017-06-17 10:44 | PN ---
Progress Note, Physician Chief Complaint: No new complaints transferred to floor - Current Medication List Current Medications: Active Medications Acetaminophen (Tylenol -) 650 mg PO Q4H PRN PRN Reason: PAIN LEVEL 1-5 Last Admin: 06/16/17 18:33 Dose: 650 mg Chlorhexidine Gluconate (Hibiclens For Decolonization -) 1 applic TP HS [facility] Last Admin: 06/16/17 21:56 Dose: Not Given Dexamethasone (Decadron -) 4 mg PO ONCE@0600 ONE Stop: 06/19/17 06:01 Dexamethasone (Decadron -) 4 mg PO BID@0600,1800 [facility] Stop: 06/18/17 06:01 Heparin Sodium (Porcine) (Heparin -) 5,000 unit SQ TID [facility] Last Admin: 06/17/17 06:29 Dose: 5,000 unit Sodium Chloride (Normal Saline -) 1,000 mls @ 40 mls/hr IV ASDIR [facility] Last Admin: 06/16/17 18:12 Dose: Not Given Levetiracetam (Keppra Injection -) 1,000 mg IVPB BID [facility] Last Admin: 06/17/17 09:04 Dose: 1,000 mg Morphine Sulfate (Morphine Sulfate) 2 mg IVPUSH Q3H PRN PRN Reason: Breakthrough pain Last Admin: 06/17/17 03:12 Dose: 2 mg Mupirocin (Bactroban Ointment (For Decolonization) -) 1 applic NS BID [facility] Stop: 06/19/17 21:59 Last Admin: 06/16/17 21:55 Dose: Not Given Ondansetron HCl (Zofran Injection) 4 mg IVPUSH Q6H PRN PRN Reason: NAUSEA Ondansetron HCl (Zofran Injection) 4 mg IVPUSH Q6H PRN PRN Reason: NAUSEA AND/OR VOMITING Oxycodone HCl (Roxicodone -) 5 mg PO Q4H PRN PRN Reason: PAIN LEVEL 4-6 Oxycodone HCl (Roxicodone -) 10 mg PO Q4H PRN PRN Reason: PAIN LEVEL 7-10 Pantoprazole Sodium (Protonix Iv) 40 mg IVPUSH DAILY [facility] Last Admin: 06/17/17 09:05 Dose: 40 mg - Objective Vital Signs: Vital Signs Temperature 99.1 F 06/17/17 06:00 Pulse Rate 86 05/05/18 06:00 Respiratory Rate 20 06/17/17 06:00 Blood Pressure 112/72 06/17/17 06:00 O2 Sat by Pulse Oximetry (%) 98 06/16/17 21:00 Young F not in distress HEENT: s/P Neurosurgery NECK: Mo JVd No Bruit CHEST: CTA B/L CVS: S1S2 R No m/g/r ABD: No distention, non tender Bs + EXT: No Edema feet, no calf tenderness, pulses + [employer]IN[employer]ING [employer]PER[employer]OR: AOx3 non focal Constitutional: Yes: Well Nourished, No Distress Eyes: Yes: Conjunctiva Clear, EOM Intact HENT: Yes: Other (S/P Craniotomy). No: Drooling, Hoarseness Neck: Yes: Supple, Trachea Midline. No: Decreased ROM, Lymphadenopathy Cardiovascular: Yes: Regular Rate and Rhythm, S1, S2. No: Murmur Respiratory: Yes: Regular, CTA Bilaterally Gastrointestinal: Yes: Normal Bowel Sounds. No: Tenderness, Epigastrium Musculoskeletal: No: Back Pain, Joint Stiffness Extremities: No: Calf Tenderness Edema: No Peripheral Pulses WNL: Yes Wound/Incision: Yes: Clean/Dry Neurological: Yes: WNL, Alert, Oriented ...Motor Strength: WNL, LUE, LLE, RUE, RLE Labs: CBC, BMP 06/17/17 06:00 06/17/17 06:00 INR, PTT INR 1.09 (0.82-1.09) 06/13/17 08:55 Problem List - Problems (1) Syncope Assessment/Plan: Present with Presyncope most likely due to Brain mass s/p surgery Code(s): R55 - SYNCOPE AND COLLAPSE (2) Brain neoplasm Assessment/Plan: S/p resection cont Dexa and keppra f/u neuro surgery recommendations Code(s): D49.6 - NEOPLASM OF UNSPECIFIED BEHAVIOR OF BRAIN (3) History of breast cancer Assessment/Plan: F/U at Oncology no active issue Code(s): Z85.3 - PERSONAL HISTORY OF MALIGNANT NEOPLASM OF BREAST
[2017-06-17] MEDS: MUPIROCIN 2% TOPICAL OINTMENT FOR DECOLONIZATION NS SCH ×2 (14:34→21:39)
[2017-06-17] MEDS ORDERED: DEXAMETHASONE 4 MG TABLET (FP) PO SCH (18:00)
[2017-06-17] MEDS: DEXAMETHASONE 4 MG TABLET (FP) PO SCH (18:05)
[2017-06-17] MEDS: SODIUM CHLORIDE 1,000 ML IV SCH (18:05)
[2017-06-17] MEDS: CHLORHEXIDINE GLUCONATE 4% CLEANSER FOR DECOLONIZATION TP SCH (21:39)
[2017-06-18] MEDS: DEXAMETHASONE 4 MG TABLET (FP) PO SCH (06:45)
[2017-06-18] MEDS: HEPARIN NA (PORCINE) 5,000 UNITS/ML 1ML VIAL SQ SCH ×3 (06:46→22:28)
[2017-06-18 07:10] LABS: BASO % 0.3 % (0-2.0); HEMATOCRIT 31.2 % (32.4-45.2); HEMOGLOBIN 10.2 GM/dL (10.7-15.3); MCH 27.8 pg (25.7-33.7); MCHC 32.8 g/dl (32.0-36.0); MEAN CELL VOLUME 84.6 fl (80-96); MEAN PLT VOLUME 9.6 fl (7.5-11.1); MONO % 6.2 % (3.8-10.2); NEUT % 76.5 % (42.8-82.8); PLATELET COUNT 286 K/MM3 (134-434); RBC 3.69 M/mm3 (3.60-5.2); WHITE BLOOD COUNT 13.6 K/mm3 (4.0-10.0)
[2017-06-18 07:21] LABS: ALBUMIN 2.8 g/dl (3.4-5.0); ANION GAP 10 (8-16); BILIRUBIN,TOTAL 0.5 mg/dL (0.2-1.0); BLOOD UREA NITROGEN 13 mg/dL (7-18); CALCIUM 9.2 mg/dL (8.5-10.1); CHLORIDE 105 mmol/L (98-107); CO2 26 mmol/L (21-32); CREATININE 0.6 mg/dL (0.55-1.02); GLUCOSE,RANDOM 91 mg/dL (74-106); POTASSIUM 4.1 mmol/L (3.5-5.1); SGOT/AST 21 U/L (15-37); SGPT/ALT 30 U/L (12-78); SODIUM 141 mmol/L (136-145); TOT PROT 7.7 g/dl (6.4-8.2)
[2017-06-18 07:22] LABS: ALK PHOS 87 U/L (45-117)
[2017-06-18] MEDS: MUPIROCIN 2% TOPICAL OINTMENT FOR DECOLONIZATION NS SCH ×2 (09:38→22:30)
[2017-06-18] MEDS: PANTOPRAZOLE SODIUM 40 MG VIAL IVPUSH SCH (09:50)
[2017-06-18] MEDS: levETIRAcetam 500 MG/5 ML INJECTION VIAL IVPB SCH ×2 (09:50→22:27)
--- NOTE | 2017-06-18 11:25 | PN ---
Progress Note, Physician Chief Complaint: No new complaints transferred to floor - Current Medication List Current Medications: Active Medications Acetaminophen (Tylenol -) 650 mg PO Q4H PRN PRN Reason: PAIN LEVEL 1-5 Last Admin: 06/16/17 18:33 Dose: 650 mg Chlorhexidine Gluconate (Hibiclens For Decolonization -) 1 applic TP HS [facility] Last Admin: 06/17/17 21:39 Dose: Not Given Dexamethasone (Decadron -) 4 mg PO ONCE@0600 ONE Stop: 06/19/17 06:01 Heparin Sodium (Porcine) (Heparin -) 5,000 unit SQ TID [facility] Last Admin: 06/18/17 06:46 Dose: 5,000 unit Sodium Chloride (Normal Saline -) 1,000 mls @ 40 mls/hr IV ASDIR [facility] Last Admin: 06/17/17 18:05 Dose: 40 mls/hr Levetiracetam (Keppra Injection -) 1,000 mg IVPB BID [facility] Last Admin: 06/18/17 09:50 Dose: 1,000 mg Morphine Sulfate (Morphine Sulfate) 2 mg IVPUSH Q3H PRN PRN Reason: Breakthrough pain Last Admin: 06/17/17 03:12 Dose: 2 mg Mupirocin (Bactroban Ointment (For Decolonization) -) 1 applic NS BID [facility] Stop: 06/19/17 21:59 Last Admin: 06/18/17 09:38 Dose: Not Given Ondansetron HCl (Zofran Injection) 4 mg IVPUSH Q6H PRN PRN Reason: NAUSEA Ondansetron HCl (Zofran Injection) 4 mg IVPUSH Q6H PRN PRN Reason: NAUSEA AND/OR VOMITING Oxycodone HCl (Roxicodone -) 5 mg PO Q4H PRN PRN Reason: PAIN LEVEL 4-6 Oxycodone HCl (Roxicodone -) 10 mg PO Q4H PRN PRN Reason: PAIN LEVEL 7-10 Pantoprazole Sodium (Protonix Iv) 40 mg IVPUSH DAILY [facility] Last Admin: 06/18/17 09:50 Dose: 40 mg - Objective Vital Signs: Vital Signs Temperature 99.1 F 06/18/17 06:00 Pulse Rate 77 06/18/17 06:00 Respiratory Rate 20 06/18/17 06:00 Blood Pressure 122/71 05/06/18 06:00 O2 Sat by Pulse Oximetry (%) 98 06/17/17 21:00 Young F not in distress HEENT: s/P Neurosurgery NECK: Mo JVd No Bruit CHEST: CTA B/L CVS: S1S2 R No m/g/r ABD: No distention, non tender Bs + EXT: No Edema feet, no calf tenderness, pulses + BENDING ROLL HAND: AOx3 non focal Labs: CBC, BMP 06/18/17 06:40 06/18/17 06:40 INR, PTT INR 1.09 (0.82-1.09) 06/13/17 08:55 Problem List - Problems (1) Syncope Assessment/Plan: Present with Presyncope most likely due to Brain mass s/p surgery Code(s): R55 - SYNCOPE AND COLLAPSE (2) Brain neoplasm Assessment/Plan: S/p resection cont Dexa and keppra f/u neuro surgery recommendations Code(s): D49.6 - NEOPLASM OF UNSPECIFIED BEHAVIOR OF BRAIN (3) History of breast cancer Assessment/Plan: F/U at Oncology no active issue Code(s): Z85.3 - PERSONAL HISTORY OF MALIGNANT NEOPLASM OF BREAST
[2017-06-18] MEDS: SODIUM CHLORIDE 1,000 ML IV SCH (18:23)
[2017-06-18] MEDS: CHLORHEXIDINE GLUCONATE 4% CLEANSER FOR DECOLONIZATION TP SCH (22:29)
[2017-06-19 05:37] LABS: BASO % 0.1 % (0-2.0); EOS % 0.1 % (0-4.5); HEMATOCRIT 30.2 % (32.4-45.2); HEMOGLOBIN 10.1 GM/dL (10.7-15.3); LYMPH % 25.2 % (8-40); MCH 28.6 pg (25.7-33.7); MCHC 33.6 g/dl (32.0-36.0); MEAN CELL VOLUME 85.2 fl (80-96); MEAN PLT VOLUME 8.6 fl (7.5-11.1); MONO % 7.4 % (3.8-10.2); NEUT % 67.2 % (42.8-82.8); PLATELET COUNT 268 K/MM3 (134-434); RBC 3.54 M/mm3 (3.60-5.2); RDW 15.6 % (11.6-15.6); WHITE BLOOD COUNT 9.9 K/mm3 (4.0-10.0)
[2017-06-19] MEDS: HEPARIN NA (PORCINE) 5,000 UNITS/ML 1ML VIAL SQ SCH ×2 (05:56→14:15)
[2017-06-19] MEDS ORDERED: DEXAMETHASONE 4 MG TABLET (FP) PO ONE ×2 (06:00)
[2017-06-19 06:07] LABS: ALBUMIN 2.5 g/dl (3.4-5.0); ANION GAP 9 (8-16); BILIRUBIN,TOTAL 0.3 mg/dL (0.2-1.0); BLOOD UREA NITROGEN 13 mg/dL (7-18); CHLORIDE 108 mmol/L (98-107); CO2 28 mmol/L (21-32); CREATININE 0.6 mg/dL (0.55-1.02); GLUCOSE,RANDOM 88 mg/dL (74-106); POTASSIUM 3.9 mmol/L (3.5-5.1); SGOT/AST 63 U/L (15-37); SGPT/ALT 88 U/L (12-78); SODIUM 145 mmol/L (136-145); TOT PROT 6.8 g/dl (6.4-8.2)
[2017-06-19 06:08] LABS: ALK PHOS 99 U/L (45-117)
[2017-06-19] MEDS: levETIRAcetam 500 MG/5 ML INJECTION VIAL IVPB SCH (11:10)
[2017-06-19] MEDS: PANTOPRAZOLE SODIUM 40 MG VIAL IVPUSH SCH (11:10)
--- NOTE | 2017-06-19 15:38 | DS ---
Physical Examination Vital Signs: Vital Signs Temperature 36.8 C 06/19/17 10:00 Pulse Rate 62 06/19/17 10:00 Respiratory Rate 20 06/19/17 10:00 Blood Pressure 116/69 06/19/17 10:00 O2 Sat by Pulse Oximetry (%) 99 06/19/17 09:00 Constitutional: Yes: Well Nourished, No Distress, Calm Cardiovascular: Yes: Regular Rate and Rhythm. No: Gallop, Murmur, Rub Respiratory: Yes: Regular, CTA Bilaterally. No: Rales, Rhonchi, Wheezes Gastrointestinal: Yes: Normal Bowel Sounds, Soft. No: Distention, Tenderness Extremities: Yes: WNL Edema: No Labs: CBC, BMP 06/19/17 05:18 06/19/17 05:18 Discharge Summary Reason For Visit: NEOPLASM OF THE BRAIN Current Active Problems Brain neoplasm (Acute) History of breast cancer (Acute) Syncope (Acute) Hospital Course: (1) Syncope Code(s): R55 - SYNCOPE AND COLLAPSE (2) Brain neoplasm Code(s): D49.6 - NEOPLASM OF UNSPECIFIED BEHAVIOR OF BRAIN (3) History of breast cancer Code(s): Z85.3 - PERSONAL HISTORY OF MALIGNANT NEOPLASM OF BREAST Ms Cheung is a very pleasant 51 year old female who comes in with syncope and found to have a large brain mass. She was admitted to the hospital and started on IV decadron to decrease swelling. She had carotid ultrasound and ECHO for syncope, both were negative. Neurosurgery and oncology consulted, she was taken to the OR for sterostatic R frontal craniotomy with microrsurgical resection of the brain tumor. She tolerated this well. Neurosurgery managed this and the drains are removed. She is safe for discharge from their standpoint. She is doing well medically and is safe for discharge with close follow up. She will be discharged on keppra. Biopsy results are pending but this can be followed up as an outpatient with results taken to her outpatient oncologist for further treatment if needed. Condition: Stable - Instructions Diet, Activity, Other Instructions: Dr. Mascorro's Discharge Instructions Dear ROWENA CHEUNG, Post Operative Instructions Physical activity Resume your normal everyday activity as tolerated no heavy lifting or exercise until seen by your surgeon. You may walk unlimited amounts of and climb stairs. You may resume driving the car when you are no longer taking narcotic medications and can safely respond to traffic patterns. Wound care You may shower but do not submerge the incision. Do not apply lotions or ointments to the incision. Cover the stephon to protect them from getting snagged, they will be removed in the office @10-14 days. Diet Maintain a low sodium diet. Eat healthy, high-fiber foods. Drink 6 to 8 glasses of liquid each day. This will assist in keeping your bowels are regular. Pain management You may take Tylenol or acetaminophen or Ibuprofen (for example, Motrin, Advil etc.) Any pain prescription medication ordered should be taken as prescribed for moderate to severe pain. Continue Keppra as directed. Call for any of the following: Severe pain not relieved by medication Fever of 101 or higher Excessive bleeding or drainage on dressing Inability to urinate New headache, vomiting or change in vision. Should you experience any chest pain or shortness of breath please seek emergency treatment immediately. Call Dr Mascorro's office to confirm post operative appointment upon discharge. Follow up with your oncologist Referrals: Kadeem Cohen MD [Staff Physician] - 1 Week Jelani Mascorro MD, FAANS [Staff Physician] - Disposition: VNS/HOME HEALTH CARE - Home Medications Comprehensive Discharge Medication List: Ambulatory Orders levETIRAcetam [Keppra -] 500 mg PO BID #60 tablet 06/19/17
[2017-06-19 15:44] VITALS: BP 114/68; PULSE 72; TEMP 98.7
--- NOTE | 2017-06-20 14:28 | PATH ---
Cytology Non-Gynecological Report Patient Name: ROWENA DE LEÓN Med. Rec. #: [id number] /Age/Gender: 1965 (Age: 51) / F Account: [id number] Location: [facility] MED/SURG Taken: 06/15/2017 Received: 06/15/2017 Reported: 06/20/2017 Physicians: Scot Borrero M.D. Haroon Choudri, M.D. Specimen(s) Received RIGHT FRONTAL TUMOR CYST TUMOR Clinical History Brain lesion, History of breast cancer Final Diagnosis BRAIN, FRONTAL, RIGHT, CYSTIC TUMOR, FOR CYTOLOGYSATISFACTORY FOR EVALUATION. POSITIVE FOR MALIGNANT CELLS. CARCINOMA. MALIGNANT EPITHELIAL CELLS DISPERSED COHESIVE AGGREGATES IN A HEMORRHAGIC BACKGROUND WITH DEGENERATED CELLS AND MACROPHAGES. Comment: Immunohistochemical stains performed at [place], [place] ([id number]) and interpreted at [facility] show the tumor cells are positive for cytokeratin AE1/3. See concurrent material ([id number]). Electronically Signed Violet Mari M.D. Gross Description Approximately 10 cc of brown fluid received fresh. Two cytofunnels and one cellblock prepared.
--- NOTE | 2017-06-20 15:09 | PATH ---
Surgical Pathology Report Patient Name: ROWENA DE LEÓN Med. Rec. #: [id number] /Age/Gender: 1965 (Age: 51) / F Account: [id number] Location: [facility] MED/SURG Taken: 06/14/2017 Received: 06/14/2017 Reported: 06/20/2017 Physicians: Scot Manuel M.D. Smitha Mellacheruvu, M.D. Specimen(s) Received A: RIGHT FRONTAL CYTIC TUMOR B: RIGHT FRONTAL TUMOR Clinical History Neoplasm of the brain Intraoperative Consult Diagnosis Brain, biopsy, frozen section: High grade neoplasm, defer to permanents. Lamont Shin M.D., 06/14/17 Final Diagnosis A. BRAIN, RIGHT, FRONTAL, CYSTIC TUMOR, STEREOTACTIC FRONTAL CRANIOTOMY WITH MICROSURGICAL RESECTION OF BRAIN TUMOR: CARCINOMA WITH PAPILLARY FEATURES. SEE COMMENT. B. BRAIN, RIGHT, FRONTAL, TUMOR, STEREOTACTIC FRONTAL CRANIOTOMY WITH MICROSURGICAL RESECTION OF BRAIN TUMOR: CARCINOMA WITH PAPILLARY FEATURES. SEE COMMENT. Comment: The tumor shows solid and papillary configuration with areas of necrosis. Immunohistochemical stains performed at [place], [place] ([id number]) and interpreted at [facility] show the tumor is positive for AE1/3, CK7 (patchy), SRIKANTH-3, Vimentin (focal) and GALILEA, while negative for GFAP, S100, Mammoglobin and GCDFP-15. Estimated proliferative marker, Ki-67 labels ~25% of tumor nuclei. Overall histomorphology and immunophenotype is consistent with breast origin. History of breast carcinoma noted. Concurrent cytology reviewed and appears morphologically similar ([id number]). Findings discussed with Dr. Grigsby. Office of Dr. Torres informed that significant findings will be faxed (Ruth). ER,DC and Her2 studies are pending and will reported separately. Electronically Signed Violet Mari M.D. Addendum Reported: 06/21/2017 Addendum Diagnosis Results of Estrogen Receptor (ER) Progesterone Receptor (DC) and Her2 (IHC) studies performed on block "B4" at [facility] are as follows: ER (clone [id number] mouse monoclonal antibody by [employer]): 95% nuclear staining with strong intensity (Positive). DC (clone16 mouse monoclonal antibody by [employer]): ~20% nuclear staining with weak to moderate intensity (Positive). Her2 IHC (EP3 from [employer], formerly known as [id number], using Celestin Polymer Refine detection kit): 0 (Negative). Formalin fixation time: ~24 hours Positive and negative controls (internal if applicable) show appropriate results. Formalin fixation and cold ischemic times are within current ASCO/CAP recommendations for ER, DC and Her2 testing. Violet Mari M.D. Gross Description A. Received fresh labeled "right frontal cystic tumor," is a 1.0 x 0.3 x 0.2 cm aggregate of cox soft tissue fragments. A touch prep is performed and the entire specimen is submitted for frozen section. The frozen section residue is entirely submitted in one cassette for permanent sections. B. Received in formalin labeled "right frontal tumor," is an 8.5 x 6.5 x 1.5 cm aggregate of cox-brown, focally hemorrhagic, friable soft tissue fragments. The largest intact portion measures 7.0 x 3.8 x 1.2 cm. Field Trainer sections are submitted in 9 cassettes as follows: 1-3-tumor with surrounding brain; 5-3-iuoxcsqhqs patient access representative tumor. 06/14/201706/14/2017
== END 2017-06-19 16:37 | disposition home health service (06) | DRG 25 ==
LOC: JER 06:42 → JERBED 12:10 → J8W 18:54 → JICU 06-14 17:53 → J8W 06-16 17:13
PROVIDERS: ADMIT Internal Medicine; ATTEND Internal Medicine
PROC: 0JX00ZC Transfer Scalp Subcutaneous Tissue and Fascia with Skin, Subcutaneous Tissue and Fascia, Open Approach (ICD-10-PCS; 2017-06-14)
PROC: 00B00ZZ Excision of Brain, Open Approach (ICD-10-PCS; principal; 2017-06-14 11:00)
DX: C79.31 Secondary malignant neoplasm of brain (principal); G93.6 Cerebral edema; G93.5 Compression of brain; R55 Syncope and collapse; Z85.3 Personal history of malignant neoplasm of breast; Z87.891 Personal history of nicotine dependence; K21.9 Gastro-esophageal reflux disease without esophagitis; Z80.3 Family history of malignant neoplasm of breast; M76.62 Achilles tendinitis, left leg; R10.10 Upper abdominal pain, unspecified
CPT/HCPCS: 36415; 70450-TC; 70553-TC; 71250-TC; 73552-TC-LT-FY; 80048; 80053; 81003; 82550; 82784; 83735; 84100; 84155; 84165; 84460; 84484; 84703; 85025; 85027; 85379; 85610; 85730; 86334; 86850; 86900; 86901; 86922; 87086; 87340; 87389; 88108; 88307-TC; 88331-TC; 93005; 93010; 93306-TC; 93880-TC; 93970-TC; 94760; 97116-GP; 99283-25; J0131; J1644; J7030

== ENCOUNTER 2017-09-20 09:47 | Emergency (ER) | payer OTHER ==
[2017-09-20 09:58] VITALS: PULSE 70; BMI 29.2
--- NOTE | 2017-09-20 10:23 | PDOC ---
History of Present Illness - General History Source: Patient Exam Limitations: No Limitations - History of Present Illness Initial Comments: 09/20/17 11:35 The patient is a 51 year old female with a significant PMH of breast CA (s/p bilateral mastectomy), and recent frontal craniotomy with Dr Mascorro on 06/14/17 ([facility]), who presents to the emergency department for evaluation of a poking pain to the top of her head since her radiation treatment on 07/15/17. She states the poking sensation to her head is intermittent, and most severe at night. She states her pain is a 10/ 10 when trying to sleep at night and is a 5/10 now. The patient states she has also been experiencing some right arm pain which radiates from her right elbow to her right shoulder. She denies numbness or tingling. She denies alleviating factors for her pain. She reportedly took Tylenol yesterday which did not alleviate her symptoms. She reports right right arm pain is exacerbated with abduction. The patient denies chest pain, shortness of breath, and dizziness. She denies visual or auditory changes. The patient denies fever, chills, nausea, vomit, diarrhea and constipation.The patient denies dysuria, frequency, urgency and hematuria. Allergies: Codeine Social history: Pt denies toxic habits <Naty Moe - Last Filed: 09/20/17 15:34> - General History Source: Patient Exam Limitations: No Limitations <Merlyn Rees - Last Filed: 09/22/17 08:16> - General Chief Complaint: Headache Stated Complaint: SHOULDER PAIN Time Seen by Provider: 09/20/17 10:18 Past History <Naty Moe - Last Filed: 09/20/17 15:34> - Past Medical History Anemia: No Asthma: No Cancer: Yes (BILATERAL BREAST CA WITH IMPLANTS 2010. brain) Cardiac Disorders: No CVA: No COPD: No CHF: No Dementia: No Diabetes: No GI Disorders: Yes (ACID REFLUX) Disorders: No HTN: No Hypercholesterolemia: No Liver Disease: No Seizures: No Thyroid Disease: No - Surgical History Abdominal Surgery: Yes (BILATERAL INGUNIAL HERNIA REPAIR ~2011) Appendectomy: No Cardiac Surgery: No Cholecystectomy: No Lung Surgery: No Neurologic Surgery: No Orthopedic Surgery: Yes (r knee arthroscopy) - Reproductive History Cervical CA: No Dysfunctional Uterine Bleeding: No Ectopic : No Endometrial CA: No Polycystic Ovaries: No Therapeutic (s) & number: No Tubal Ligation: No - Immunization History Immunization Up to Date: Yes - Suicide/Smoking/Psychosocial Hx Smoking Status: No Smoking History: Former smoker Have you smoked in the past 12 months: No Number of Cigarettes Smoked Daily: 0 If you are a former smoker, when did you quit?: 11YRS Information on smoking cessation initiated: No Hx Alcohol Use: No Drug/Substance Use Hx: No Substance Use Type: None Hx Substance Use Treatment: No <Merlyn Rees - Last Filed: 09/22/17 08:16> - Past Medical History Allergies/Adverse Reactions: Allergies Allergy/AdvReac Type Severity Reaction Status Date / Time codeine [Codeine] Allergy Mild Itching Verified 09/20/17 10:48 POWDER GLOVES Allergy Intermediate Rash Uncoded 09/20/17 10:48 Home Medications: Ambulatory Orders Anastrozole [Arimidex -] 1 tab PO DAILY 09/06/17 Acetaminophen [Tylenol -] 1,000 mg PO Q8H PRN #30 tablet 09/20/17 Ibuprofen 600 mg PO Q8H PRN #30 tablet 09/20/17 Metoclopramide HCl [Reglan] 10 mg PO BID PRN #20 tablet 09/20/17 Review of Systems - Review of Systems Able to Perform ROS?: Yes Comments:: 09/20/17 11:36 CONSTITUTIONAL: Absent: fever, no chills, no fatigue EYES: Absent: visual changes ENT: Absent: ear pain, no sore throat CARDIOVASCULAR: Absent: chest pain, no palpitations RESPIRATORY: Absent: cough, no SOB GASTROINTESTINAL: Absent: abdominal pain, no nausea, no vomiting, no constipation, no diarrhea GENITOURINARY: Absent: dysuria, no frequency, no hematuria MUSCULOSKELETAL: Absent: back pain, no arthralgia, no myalgia SKIN: Absent: rash NEURO: (+) headache <Naty Moe - Last Filed: 09/20/17 15:34> *Physical Exam - Vital Signs Last Vital Signs Temp Pulse Resp BP Pulse Ox 99.1 F 70 18 109/61 100 09/20/17 09:54 09/20/17 09:54 09/20/17 09:54 08/08/18 09:54 09/20/17 09:54 - Physical Exam Comments: 09/20/17 11:36 GENERAL: The patient is in no acute distress. HEAD: Normal with no signs of trauma. EYES: PERRLA, EOMI, sclera anicteric, conjunctiva clear. ENT: Ears normal, nares patent, oropharynx clear without exudates. Moist mucous membranes. NECK: Normal range of motion, supple without lymphadenopathy, JVD, or masses. LUNGS: Breath sounds equal, clear to auscultation bilaterally. No wheezes, and no crackles. HEART:Regular rate and rhythm, normal S1 and S2 without murmur, rub or gallop. ABDOMEN: Soft, nontender, normoactive bowel sounds. No guarding, no rebound. No masses palpable. EXTREMITIES: (+) mild limitation to abducting to neutral of the right upper extremity. Otherwise Normal range of motion, no edema. No clubbing or cyanosis. No erythema, or tenderness. NEUROLOGICAL: Cranial nerves II through XII grossly intact. Normal speech. No focal neurological deficits. MUSCULOSKELETAL: Back non-tender to palpation, no CVA tenderness SKIN: (+) 7cm x 2cm area of depigmentation to forhead. no bleeding. no ulcers. Warm, Dry, normal turgor, no rashes or lesions noted. <Naty Moe - Last Filed: 09/20/17 15:34> - Vital Signs Last Vital Signs Temp Pulse Resp BP Pulse Ox 99.1 F 70 18 109/61 100 09/20/17 09:54 09/20/17 09:54 09/20/17 09:54 09/20/17 09:54 09/20/17 09:54 <Merlyn Rees - Last Filed: 09/22/17 08:16> ED Treatment Course - RADIOLOGY Radiograph Interpretation: EXAM#: TYPE/EXAM: RESULT: [id number] MRI/BRAIN MRI W/O CONTRAST Reason for the study. MRI of the brain without IV contrast enhancement. Multiple pulse sequences were completed utilizing the [employer] 1.5T. [employer] MRI system. Sagittal: T1. Axial: T2, FLAIR, T2 gradient echo, diffusion-weighted. Coronal. T1 FLAIR. Comparison study MRI of the brain June 14, 2017, CT scan of the brain September 20, 2017. Impression. Approximately 6.5 mm x 4.7 mm T2/FLAIR heterogeneous signal intensity focus is seen in the posterior aspect of the right frontal lobe cystic encephalomalacia abutting the right frontal lobe surface with nonspecific restrictive changes seen on diffusion weighted weighted images not containing a blood products, observed on the several axial images. Status post post right frontal craniotomy. Cystic encephalomalacia is noted in the right frontal lobe containing chronic blood products Compensatory dilatation of the frontal horn of lateral ventricle. T2 increased signal intensity is noted in the anterior periventricular white matter on the basis of gliosis. There is no mass effect on the right frontal horn of lateral ventricle. No evidence of hydrocephalus. No evidence of vasogenic edema. No acute stroke is seen on diffusion-weighted images. Reported By: Nithin Schwab MD 09/20/17 1430 ___ EXAM#: TYPE/EXAM: RESULT: [id number] MRI/CERVICAL SPINE MRI W/O CONTR Clinical formation. Status post brain cancer. MRI of the cervical spine noncontrast study. Multiple pulse sequences were completed utilizing the [employer] 1.5T SIGNA MRI system. Sagittal. T2, FLAIR, STIR. CORONAL. T2. AXIAL. T1, T2. Findings. No abnormality seen at the pontomedullary junction region. Normal signal intensity of the visualized brainstem. cerebellum. No evidence of tonsillar ectopia. Normal cervical lordosis. Disc desiccation is seen in the cervical spine, upper thoracic spine. C2-C3. There is no evidence of disc displacement, central spinal canal stenosis , or neural foramina narrowing. C3-C4. Loss of disc space height. Mild posterior annular bulge. No evidence of central spinal canal stenosis or neural foraminal narrowing. C4-C5. Loss of disc space height. Posterior disc osteophyte complex encroaching ventral subarachnoid space. Thickened ligamentum flavum. Effacement of ventral subarachnoid space. Central spinal canal stenosis. Mild osteoarthritis of the left uncovertebral joint. C5-C6. Loss of disc space height Posterior disc osteophyte complex encroaching on ventral subarachnoid space. Central spinal canal stenosis. Mild osteoarthritis of uncovertebral joints. C6-C7. Broad-based small posterior annular bulge encroaching on the ventral subarachnoid space. The greatest posterior extension of the posterior annulus approximately 2 mm. No evidence of central spinal canal stenosis. On sagittal images, no disc displacement, central spinal canal stenosis is seen in the upper thoracic spine. The spinal canal is accommodates normal appearing spinal cord that shows intrinsically normal signal. Flow-void is observed in the vertebral, carotid arteries. No evidence of pathological bone marrow replacement, edema. No evidence of prevertebral soft tissue swelling. Impression. Normal signal intensity of the spinal cord. No evidence of bone marrow edema, pathological bone marrow replacement. C3-C4. Loss of disc space height. Mild posterior annular bulge. C4-C5. Loss of disc space height. Posterior disc osteophyte complex encroaching ventral subarachnoid space. Thickened ligamentum flavum. Effacement of ventral subarachnoid space. Central spinal canal stenosis. C5-C6. Loss of disc space height Posterior disc osteophyte complex encroaching on ventral subarachnoid space. Central spinal canal stenosis. C6-C7. Broad-based small posterior annular bulge encroaching on the ventral subarachnoid space. The greatest posterior extension of the posterior annulus approximately 2 mm. Reported By: Nithin Schwab MD 09/20/17 1508 <Naty Moe - Last Filed: 09/20/17 15:34> Medical Decision Making - Medical Decision Making 09/20/17 12:46 Ms Cheung is a 51-year-old female with a history of brain cancer status post craniotomy, resection in June. She is 4 weeks status post radiation therapy. Since that time she's noticed a sharp pain in her head which she actually doesn' t describe his a headache. No focal numbness. She has noted some weakness of the right upper extremity, difficulty raising the arm to neutral position. No fevers or chills. She is tolerating foods and liquids. No vision changes. Patient is well appearing on examination. RRR CTA bilaterally Forehead with chronic post operative changes to skin Right arm, limited abduction to neutral position Dr Mascorro (who did this patient's surgery) recommended MRI (because he is concerned about metastatic disease) Recommends MRI head and cervical spine 09/20/17 16:[address] Mascorro who has seen this patient's MRI Per Dr Mascorro, pt imaging looks good Can be discharged to home Will give pain medications for home 09/22/17 08:16 <Merlyn Rees - Last Filed: 09/22/17 08:16> *DC/Admit/Observation/Transfer - Attestations Scribe Attestion: 09/20/17 11:38 Documentation prepared by Naty Moe, acting as medical imaging technician for Merlyn Rees DO. <Naty Moe - Last Filed: 09/20/17 15:34> - Discharge Dispostion Decision to Admit order: No <Merlyn Rees - Last Filed: 09/22/17 08:16> Diagnosis at time of Disposition: Headache Qualifiers: Headache type: unspecified Headache chronicity pattern: chronic headache Intractability: not intractable Qualified Code(s): R51 - Headache - Discharge Dispostion Disposition: HOME Condition at time of disposition: Stable - Prescriptions Prescriptions: Acetaminophen [Tylenol -] 1,000 mg PO Q8H PRN #30 tablet PRN Reason: Pain Ibuprofen 600 mg PO Q8H PRN #30 tablet PRN Reason: Pain Metoclopramide HCl [Reglan] 10 mg PO BID PRN #20 tablet PRN Reason: Pain - Referrals Referrals: Kadeem Cohen MD [Primary Care Provider] - - Patient Instructions Printed Discharge Instructions: DI for Headache Additional Instructions: Thank you for coming in to the ER today Please be sure to follow up with your Oncologist, your primary care physician Return to the ER for any other concerns or complaints Please take Tylenol for pain You can try taking Reglan as well, this may help for headaches You can also take Ibuprofen If this does not control your pain, please consider contacting your primary care physician for additional medications
[2017-09-20] MEDS ORDERED: ACETAMINOPHEN 325 MG TABLET (FP) PO ONE (16:18)
[2017-09-20] MEDS ORDERED: ACETAMINOPHEN 325 MG TABLET (FP) ONE (16:53)
[2017-09-20 17:01] VITALS: BP 109/60; TEMP 98.6
== END 2017-09-20 17:01 | disposition home or self-care (01) ==
LOC: JER 09:47
DX: R51 Headache (principal); K21.9 Gastro-esophageal reflux disease without esophagitis; Z85.3 Personal history of malignant neoplasm of breast; Z90.13 Acquired absence of bilateral breasts and nipples; Z92.3 Personal history of irradiation; Z86.011 Personal history of benign neoplasm of the brain; Z87.891 Personal history of nicotine dependence; Z85.841 Personal history of malignant neoplasm of brain
CPT/HCPCS: 70450-TC; 70551-TC; 72125-TC; 72141-TC; 99281-25

== ENCOUNTER 2017-12-04 11:14 | Inpatient (IN) | payer OTHER ==
[2017-12-04 11:39] VITALS: BMI 30.2
--- NOTE | 2017-12-04 12:25 | PDOC ---
History of Present Illness - General Chief Complaint: Shortness of Breath Stated Complaint: SOB Time Seen by Provider: 12/04/17 12:24 - History of Present Illness Initial Comments: 12/04/17 13:49 Ms. 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 Patient reports she has never had symptoms like this and can typically walk without any difficulty. Likewise endorses 1 week of cough and right sided nasal congestion. Son at home reportedly has a cold. The patient denies chest pain, headache and dizziness. Denies fever, chills, nausea, vomit, diarrhea and constipation. Denies dysuria, frequency, urgency and hematuria. Past History - Past Medical History Allergies/Adverse Reactions: Allergies Allergy/AdvReac Type Severity Reaction Status Date / Time codeine [Codeine] Allergy Mild Itching Verified 12/04/17 11:36 POWDER GLOVES Allergy Intermediate Rash Uncoded 12/04/17 11:36 Home Medications: Ambulatory Orders Anastrozole [Arimidex -] 1 tab PO DAILY 09/06/17 Anemia: No Asthma: No Cancer: Yes (BILATERAL BREAST CA WITH IMPLANTS 2010. brain) Cardiac Disorders: No CVA: No COPD: No CHF: No Dementia: No Diabetes: No GI Disorders: Yes (ACID REFLUX) Disorders: No HTN: No Hypercholesterolemia: No Liver Disease: No Seizures: No Thyroid Disease: No - Surgical History Abdominal Surgery: Yes (BILATERAL INGUNIAL HERNIA REPAIR ~2011) Appendectomy: No Cardiac Surgery: No Cholecystectomy: No Lung Surgery: No Neurologic Surgery: No Orthopedic Surgery: Yes (r knee arthroscopy) - Reproductive History Cervical CA: No Dysfunctional Uterine Bleeding: No Ectopic : No Endometrial CA: No Polycystic Ovaries: No Therapeutic (s) & number: No Tubal Ligation: No - Immunization History Immunization Up to Date: Yes - Suicide/Smoking/Psychosocial Hx Smoking Status: No Smoking History: Former smoker Have you smoked in the past 12 months: No Number of Cigarettes Smoked Daily: 0 If you are a former smoker, when did you quit?: 11YRS Information on smoking cessation initiated: No Hx Alcohol Use: No Drug/Substance Use Hx: No Substance Use Type: None Hx Substance Use Treatment: No Review of Systems - Review of Systems Comments:: 12/04/17 13:52 GENERAL/CONSTITUTIONAL: No fever or chills. No weakness. HEAD, EYES, EARS, NOSE AND THROAT: No change in vision. No ear pain or discharge. No sore throat. CARDIOVASCULAR: +Dyspnea on exertion as described. No chest pain. RESPIRATORY: +Cough as described. No wheezing, or hemoptysis. GASTROINTESTINAL: No nausea, vomiting, diarrhea or constipation. GENITOURINARY: No dysuria, frequency, or change in urination. MUSCULOSKELETAL: No joint or muscle swelling or pain. No neck or back pain. SKIN: No rash NEUROLOGIC: No headache, vertigo, loss of consciousness, or change in strength/ sensation. ENDOCRINE: No increased thirst. No abnormal weight change HEMATOLOGIC/LYMPHATIC: No anemia, easy bleeding, or history of blood clots. ALLERGIC/IMMUNOLOGIC: No hives or skin allergy. *Physical Exam - Vital Signs Last Vital Signs Temp Pulse Resp BP Pulse Ox 98.7 F 85 18 105/62 98 12/04/17 11:34 12/04/17 11:34 12/04/17 11:34 12/04/17 11:34 12/04/17 11:34 - Physical Exam Comments: 12/04/17 13:53 GENERAL: Awake, alert, and fully oriented, in no acute distress HEAD: No signs of trauma, normocephalic, atraumatic EYES: PERRLA, EOMI, sclera anicteric, conjunctiva clear ENT: Auricles normal inspection, hearing grossly normal, nares patent, oropharynx clear without exudates. Moist mucosa NECK: Normal ROM, supple, no lymphadenopathy, JVD, or masses LUNGS: No distress, speaks full sentences, clear to auscultation bilaterally HEART: Regular rate and rhythm, normal S1 and S2, no murmurs, rubs or gallops, peripheral pulses normal and equal bilaterally. ABDOMEN: Soft, nontender, normoactive bowel sounds. No guarding, no rebound. No masses EXTREMITIES: Normal inspection, Normal range of motion, no edema. No clubbing or cyanosis. NEUROLOGICAL: Cranial nerves II through XII grossly intact. Normal speech, normal gait, no focal sensorimotor deficits SKIN: Warm, Dry, normal turgor, no rashes or lesions noted. ED Treatment Course - LABORATORY CBC & Chemistry Diagram: 12/04/17 12:49 12/04/17 13:21 Medical Decision Making - Medical Decision Making 12/04/17 13:54 Ms. Cheung is a 51 yo female w/ pmh as described who presents for evaluation of dyspnea on exertion concerning for viral illness vs. neoplastic process vs. cardiac process. Will evaluate w/ EKG / labs / CXR. 12/04/17 15:20 Patient noted to have d-dimer of 24k. CTA PE workup started. 12/04/17 15:44 EKG regulaar rate, regular rhythm, normal access, normal interval, no st elevation or depresssions. Flipped t waves noted in lead III. Grossly normal EKG. 12/04/17 17:37 Patient noted to have bilateral PE's on CT. Heparin started for treatment. Discussed patient with inpatient team who will admit for further workup. *DC/Admit/Observation/Transfer Diagnosis at time of Disposition: Pulmonary embolism Qualifiers: Pulmonary embolism type: other Chronicity: acute Acute cor pulmonale presence: without acute cor pulmonale Qualified Code(s): I26.99 - Other pulmonary embolism without acute cor pulmonale - Discharge Dispostion Decision to Admit order: Yes - Referrals Referrals: Kadeem Cohen MD [Primary Care Provider] - - Patient Instructions - Post Discharge Activity
[2017-12-04 13:44] LABS: BASO % 0.8 % (0-2.0); EOS % 3.4 % (0-4.5); HEMATOCRIT 36.9 % (32.4-45.2); HEMOGLOBIN 11.9 GM/dL (10.7-15.3); LYMPH % 33.5 % (8-40); MCH 27.3 pg (25.7-33.7); MCHC 32.1 g/dl (32.0-36.0); MEAN CELL VOLUME 84.9 fl (80-96); MEAN PLT VOLUME 9.4 fl (7.5-11.1); MONO % 4.9 % (3.8-10.2); NEUT % 57.4 % (42.8-82.8); PLATELET COUNT 197 K/MM3 (134-434); RBC 4.34 M/mm3 (3.60-5.2); RDW 16.8 % (11.6-15.6); WHITE BLOOD COUNT 6.8 K/mm3 (4.0-10.0)
--- NOTE | 2017-12-04 13:47 | PDOC ---
Attending Attestation - HPI HPI: The patient is a 51 year old female with a significant PMH of breast CA (s/p bilateral mastectomy), brain cancer (July), breast (8 years ago) and recent frontal craniotomy with Dr Mascorro on 06/14/17 (radiation Tx with [facility] on 07/15/17), who presents to the emergency department for 1 week of dyspnea on exertion. Patient states that last weekend she had trouble breathing while walking up a hill and states that she was gasping for air and out of breath. She states that she has never experienced this before. She states that 2 weeks ago she was able to walk along the track without getting short of breath. She also notes that the coldness worsening her shortness of breath. She states that she has never experienced this before. She notes an associated dry cough today as well as right nasal soreness. She also notes that her 23 year old son who lives with her has cold symptoms. Denies cardiac history. Denies h/o DVT or PE. Denies orthopnea. Denies chest pain. Denies leg swelling. PCP: Vicki Quan Oncologist: [facility] Allergies: Codeine - mild rash Social history: Pt denies toxic habits - Physicial Exam PE: GENERAL: Awake, alert, and fully oriented, in no acute distress HEAD: No signs of trauma EYES: PERRLA, EOMI, sclera anicteric, conjunctiva clear NECK: Normal ROM, supple. LUNGS: Breath sounds equal, clear to auscultation bilaterally. No wheezes, and no crackles HEART: Regular rate and rhythm, normal S1 and S2, no murmurs, rubs or gallops ABDOMEN: Soft, nontender. No guarding, no rebound. No masses EXTREMITIES: Normal range of motion, no edema. No clubbing or cyanosis. No cords, erythema, or tenderness NEUROLOGICAL: Cranial nerves II through XII grossly intact. Normal speech, normal gait SKIN: Warm, Dry, normal turgor, no rashes or lesions noted. <Jania Queen - Last Filed: 12/04/17 13:51> - Resident Resident Name: Rey Isbell - ED Attending Attestation I have performed the following: I have examined & evaluated the patient, The case was reviewed & discussed with the resident, I agree w/resident's findings & plan, Exceptions are as noted - Medical Decision Making 12/04/17 13:44 A portion of this note was documented by scribe services under my direction. I have reviewed the details of the note, within reason, and agree with the documentation with the following case summary and management plan written by me. Patient treated in the ED. Nursing notes are reviewed and incorporated into the medical decision-making. Vital signs reviewed. Peripheral IV access obtained by the nurse, laboratory studies are drawn and sent, reviewed and interpreted by myself. Vital Signs Temp Pulse Resp BP Pulse Ox 98.7 F 85 18 105/62 98 12/04/17 11:34 12/04/17 11:34 12/04/17 11:34 12/04/17 11:34 12/04/17 11:34 51-year-old female with past medical history of breast and brain cancer status post remission, status post radiation to the chest presents with dyspnea on exertion for one week. Patient reports that she's been typically unlimited excise tolerance. However, she started noticed that she was started developing this dyspnea exertion but no chest pain. Denies recent illnesses, fevers, chills , vomiting, diarrhea. However, she noticed a mild dry cough today and reports that her son has URI symptoms. The patient has not had a recent echo or stress test. Has no known cardiac or pulmonary disease to her knowledge. Denies smoking history. Differential includes bronchitis, viral syndrome, pneumonia, radiation pneumonitis, acute coronary syndrome, pulmonary embolism. We'll obtain labs, EKG , troponin, chest x-ray, d-dimer. Given that the patient's permission, if the d- dimer is negative, we'll not pursue a CTA of the chest at this moment. We'll observe instead. 12/04/17 17:21 CBC, BMP 12/04/17 12:49 12/04/17 13:21 CMP Sodium 141 mmol/L (136-145) 12/04/17 13:21 Potassium 4.4 mmol/L (3.5-5.1) 12/04/17 13:21 Chloride 110 mmol/L (98-107) H 12/04/17 13:21 Carbon Dioxide 24 mmol/L (21-32) 12/04/17 13:21 Anion Gap 7 MMOL/L (8-16) L 12/04/17 13:21 BUN 10 mg/dL (7-18) 12/04/17 13:21 Creatinine 0.7 mg/dL (0.55-1.3) 12/04/17 13:21 Creat Clearance w eGFR > 60 (>60) 12/04/17 13:21 Random Glucose 70 mg/dL (74-106) L 12/04/17 13:21 Calcium 9.3 mg/dL (8.5-10.1) 12/04/17 13:21 Magnesium 2.2 mg/dL (1.8-2.4) 12/04/17 13:21 Total Bilirubin 0.5 mg/dL (0.2-1) 12/04/17 13:21 AST 23 U/L (15-37) 12/04/17 13:21 ALT 25 U/L (13-61) 12/04/17 13:21 Alkaline Phosphatase 123 U/L (45-117) H 12/04/17 13:21 Creatine Kinase 122 IU/L (26-192) 12/04/17 13:21 Troponin I < 0.02 ng/ml (0.00-0.05) 12/04/17 13:21 B-Natriuretic Peptide 38.2 pg/ml (5-125) 12/04/17 13:21 Total Protein 8.3 g/dl (6.4-8.2) H 12/04/17 13:21 Albumin 3.7 g/dl (3.4-5.0) 12/04/17 13:21 Pt's CTA shows bilateral PE. However, negative troponin and no ECG of right heart strain. Heparin bolus and drip initiated. Admit. <Vincent Bartlett - Last Filed: 12/12/17 10:30> Heart Score/ECG Review #1 ECG reviewed & interpreted by me at: 14:00 12/04/17 14:07 NSR 78, TWI III, normal axis, nomral intervals, QTC 399 msec <Vincent Bartlett - Last Filed: 12/12/17 10:30>
[2017-12-04 13:59] LABS: INR 1.1 (0.83-1.09)
[2017-12-04 14:02] LABS: ACTIVATED PTT 26.2 SECONDS (25.2-36.5)
[2017-12-04 14:21] LABS: ALBUMIN 3.7 g/dl (3.4-5.0); ALK PHOS 123 U/L (45-117); ANION GAP 7 MMOL/L (8-16); BILIRUBIN,TOTAL 0.5 mg/dL (0.2-1); BLOOD UREA NITROGEN 10 mg/dL (7-18); CALCIUM 9.3 mg/dL (8.5-10.1); CHLORIDE 110 mmol/L (98-107); CO2 24 mmol/L (21-32); CREATININE 0.7 mg/dL (0.55-1.3); GLUCOSE,RANDOM 70 mg/dL (74-106); MAGNESIUM 2.2 mg/dL (1.8-2.4); N-TERMINAL BNP 38.2 pg/ml (5-125); POTASSIUM 4.4 mmol/L (3.5-5.1); SGOT/AST 23 U/L (15-37); SGPT/ALT 25 U/L (13-61); SODIUM 141 mmol/L (136-145); TOT PROT 8.3 g/dl (6.4-8.2)
[2017-12-04] MEDS ORDERED: HEPARIN NA (PORCINE) 5,000 UNITS/ML 1ML VIAL IVPUSH ONE (17:20)
[2017-12-04] MEDS ORDERED: HEPARIN - 25,000 UNIT in SODIUM CHLORIDE 495 ML IV SCH (17:30)
[2017-12-04] MEDS ORDERED: HEPARIN INFUSION - 25,000 UNITS/500 ML INFUS.BAG IVPB ONE (17:57)
[2017-12-04] MEDS ORDERED: HEPARIN NA (PORCINE) 5,000 UNITS/ML 1ML VIAL ONE (17:57)
[2017-12-04] MEDS: HEPARIN SOD,PORK IN 0.45% NACL 25,000 UNITS/500 ML INFUS.BAG IVPB SCH (18:30)
[2017-12-04] MEDS ORDERED: ACETAMINOPHEN 325 MG TABLET (FP) PO PRN (19:02)
[2017-12-04] MEDS ORDERED: HEPARIN NA (PORCINE) 5,000 UNITS/ML 1ML VIAL IVPUSH PRN ×2 (19:51)
--- NOTE | 2017-12-04 20:45 | HP ---
CHIEF COMPLAINT: Shortness of breath PCP: Dr. Kadeem Cohen HISTORY OF PRESENT ILLNESS: 51 year old female presented to the ED with NEAL for the past week. She is an employee of [employer], and she brought herself to the ED after her shift today. She reports feeling generally unwell over the past week and had shortness of breath when almost every time she needed to walk anywhere. She has a PMH significant for breast cancer, secondary brain cancer. Denies dizziness, syncope, fever, pain with inspiration, hemoptysis, n/v/d, or recent weight loss. In the ED, her D-Dimer was 24,091, and she was found to have b/l pulmonary emboli on CT. She was given Heparin 5,000 U IVP and started on Heparin 1,400 U/ Hr. 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 resection) Past Surgical History b/l mastectomy Hiatal hernia repair Abdominal hernia repair Social History: Smoking: Former, quit 8 years ago Alcohol: Denies Drugs: Denies Family History: Mother: CHF, age 85 Brother: Asthma Allergies codeine [Codeine] Allergy (Mild, Verified 12/04/17 11:36) Itching POWDER GLOVES Allergy (Intermediate, Uncoded 12/04/17 11:36) Rash ITCHING HOME MEDICATIONS: Home Medications Medication Instructions Recorded Anastrozole [Arimidex -] 1 tab PO DAILY 09/06/17 REVIEW OF SYSTEMS CONSTITUTIONAL: Absent: fever, chills, diaphoresis, generalized weakness, malaise, loss of appetite, weight change HEENT: Absent: rhinorrhea, nasal congestion, throat pain, throat swelling, difficulty swallowing, mouth swelling, ear pain, eye pain, visual changes CARDIOVASCULAR: Absent: chest pain, syncope, palpitations, irregular heart rate, lightheadedness , peripheral edema RESPIRATORY: Absent: cough, shortness of breath, dyspnea with exertion, orthopnea, wheezing, stridor, hemoptysis GASTROINTESTINAL: Absent: abdominal pain, abdominal distension, nausea, vomiting, diarrhea, constipation, melena, hematochezia GENITOURINARY: Absent: dysuria, frequency, urgency, hesitancy, hematuria, flank pain, genital pain MUSCULOSKELETAL: Absent: myalgia, arthralgia, joint swelling, back pain, neck pain SKIN: Absent: rash, itching, pallor HEMATOLOGIC/IMMUNOLOGIC: Absent: easy bleeding, easy bruising, lymphadenopathy, frequent infections ENDOCRINE: Absent: unexplained weight gain, unexplained weight loss, heat intolerance, cold intolerance NEUROLOGIC: Absent: headache, focal weakness or paresthesias, dizziness, unsteady gait, seizure, mental status changes, bladder or bowel incontinence PSYCHIATRIC: Absent: anxiety, depression, suicidal or homicidal ideation, hallucinations. PHYSICAL EXAMINATION Vital Signs - 24 hr 12/04/17 12/04/17 11:34 20:05 Temperature 98.7 F Pulse Rate 85 84 Pulse Rate [ 84 Apical] Respiratory 18 16 Rate Blood Pressure 105/62 Blood Pressure 113/72 [Right Arm] O2 Sat by Pulse 98 98 Oximetry (%) GENERAL: Awake, alert, and fully oriented, in no acute distress. HEAD: Normal with no signs of trauma. EYES: Pupils equal, round and reactive to light, extraocular movements intact, sclera anicteric, conjunctiva clear. No lid lag. EARS, NOSE, THROAT: Ears normal, nares patent, oropharynx clear without exudates. Moist mucous membranes. NECK: Normal range of motion, supple without lymphadenopathy, JVD, or masses. LUNGS: Breath sounds equal, clear to auscultation bilaterally. No wheezes, and no crackles. No accessory muscle use. HEART: Regular rate and rhythm, normal S1 and S2 without murmur, rub or gallop. ABDOMEN: Soft, nontender, not distended, normoactive bowel sounds, no guarding, no rebound, no masses. No hepatomegaly or splenomegaly. MUSCULOSKELETAL: Normal range of motion at all joints. No bony deformities or tenderness. No CVA tenderness. UPPER EXTREMITIES: 2+ pulses, warm, well-perfused. No cyanosis. No clubbing. No peripheral edema. LOWER EXTREMITIES: 2+ pulses, warm, well-perfused. No calf tenderness. No peripheral edema. NEUROLOGICAL: Cranial nerves II-XII intact. Normal speech. Normal gait. PSYCHIATRIC: Cooperative. Good eye contact. Appropriate mood and affect. SKIN: Warm, dry, normal turgor, no rashes or lesions noted, normal capillary refill. Laboratory Results - last 24 hr 12/04/17 12/04/17 12/04/17 12:49 12:49 13:21 WBC 6.8 RBC 4.34 Hgb 11.9 Hct 36.9 D MCV 84.9 MCH 27.3 MCHC 32.1 RDW 16.8 H Plt Count 197 D MPV 9.4 Absolute Neuts (auto) 3.9 Neutrophils % 57.4 Lymphocytes % 33.5 D Monocytes % 4.9 Eosinophils % 3.4 D Basophils % 0.8 D Nucleated RBC % 0 PT with INR 13.00 INR 1.10 H PTT (Actin FS) 26.2 D-Dimer Sodium 141 Potassium 4.4 Chloride 110 H Carbon Dioxide 24 Anion Gap 7 L BUN 10 Creatinine 0.7 Creat Clearance w eGFR > 60 Random Glucose 70 L Calcium 9.3 Magnesium 2.2 Total Bilirubin 0.5 AST 23 ALT 25 Alkaline Phosphatase 123 H Creatine Kinase 122 Troponin I < 0.02 B-Natriuretic Peptide 38.2 Total Protein 8.3 H Albumin 3.7 12/04/17 14:22 WBC RBC Hgb Hct MCV MCH MCHC RDW Plt Count MPV Absolute Neuts (auto) Neutrophils % Lymphocytes % Monocytes % Eosinophils % Basophils % Nucleated RBC % PT with INR INR PTT (Actin FS) D-Dimer 39703 H Sodium Potassium Chloride Carbon Dioxide Anion Gap BUN Creatinine Creat Clearance w eGFR Random Glucose Calcium Magnesium Total Bilirubin AST ALT Alkaline Phosphatase Creatine Kinase Troponin I B-Natriuretic Peptide Total Protein Albumin ECG Regular rate, regular rhythm, normal access, normal interval, no st elevation or depresssions. CT Chest Bilateral pulmonary emboli mainly involving the proximal and distal branches of the right and left lower lobe pulmonary artery and to a lesser extent the proximal and distal branches of the right upper and middle bettye pulmonary artery. ASSESSMENT/PLAN: 51 year old female with a PMH of breast cancer, secondary brain cancer presented to the ED with NEAL for the past week. She was found to have b/l pulmonary emboli on CT and was admitted for anticoagulation. B/L Pulmonary Emboli -Given Heparin 5,000 U IVP in the ED -Started Heparin 1,400 U/Hr -Cardiac monitoring -Pulmonology consult with Dr. Reed ordered. History of breast cancer with brain metastases -treated with bilateral mastectomy and radiation -Continue Arimidex 1 mg qday -f/u with oncology FEN --PO intake adequate --Electrolytes replete as indicated --Regular diet DVT Prophylaxis --SCDs --On Heparin Dispo: pt currently requires further inpatient care. FULL CODE Visit type - Emergency Visit Emergency Visit: Yes ED Registration Date: 12/04/17 Care time: The patient presented to the Emergency Department on the above date and was hospitalized for further evaluation of their emergent condition. - New Patient This patient is new to me today: Yes Date on this admission: 12/05/17 - Critical Care Critical Care patient: No
--- NOTE | 2017-12-04 21:20 | EKG ---
Test Reason : Blood Pressure : / mmHG Vent. Rate : 078 BPM Atrial Rate : 078 BPM P-R Int : 180 ms QRS Dur : 096 ms QT Int : 350 ms P-R-T Axes : 066 021 024 degrees QTc Int : 399 ms NORMAL SINUS RHYTHM POSSIBLE INFERIOR INFARCT (CITED ON OR BEFORE 12-JUN-2017) ABNORMAL ECG WHEN COMPARED WITH ECG OF 14-JUN-2017 09:05, VENT. RATE HAS INCREASED BY 27 BPM T WAVE VARIATION Confirmed by NAYA BOWLING MD ([id number]) on 12/04/2017 9:19:48 PM Referred By: Confirmed By:NAYA BOWLING MD
[2017-12-05] MEDS: DOCUSATE SODIUM 100 MG CAPSULE (FP) PO SCH ×4 (00:44→21:30)
[2017-12-05 06:08] LABS: HEMATOCRIT 34.4 % (32.4-45.2); HEMOGLOBIN 10.8 GM/dL (10.7-15.3); MCH 26.6 pg (25.7-33.7); MCHC 31.4 g/dl (32.0-36.0); MEAN CELL VOLUME 84.7 fl (80-96); MEAN PLT VOLUME 9.1 fl (7.5-11.1); PLATELET COUNT 164 K/MM3 (134-434); RBC 4.06 M/mm3 (3.60-5.2); RDW 16.3 % (11.6-15.6); WHITE BLOOD COUNT 6.6 K/mm3 (4.0-10.0)
[2017-12-05 06:18] LABS: INR 1.19 (0.83-1.09); PROTHROMBIN TIME (PATIENT) 14.1 SEC (9.7-13.0)
[2017-12-05] MEDS: HEPARIN SOD,PORK IN 0.45% NACL 25,000 UNITS/500 ML INFUS.BAG IVPB SCH (06:21)
[2017-12-05 06:36] LABS: ACTIVATED PTT 194.3 SECONDS (25.2-36.5)
[2017-12-05 06:42] LABS: ANION GAP 5 MMOL/L (8-16); BLOOD UREA NITROGEN 9 mg/dL (7-18); CALCIUM 9.1 mg/dL (8.5-10.1); CHLORIDE 109 mmol/L (98-107); CO2 29 mmol/L (21-32); CREATININE 0.7 mg/dL (0.55-1.3); GLUCOSE,RANDOM 85 mg/dL (74-106); POTASSIUM 4.2 mmol/L (3.5-5.1); SODIUM 143 mmol/L (136-145)
[2017-12-05] MEDS ORDERED: PT OWN MED DRAWER 7, Y5N ONE ×3 (09:25→12:13)
[2017-12-05] MEDS ORDERED: FLU VACCINE QUAD 60 MCG/0.5 ML (MDV 18-19) IM ONE (10:00)
[2017-12-05] MEDS: ENOXAPARIN NA (PORCINE) 80 MG/0.8 ML DISP.SYRIN SQ SCH ×2 (10:56→21:30)
--- NOTE | 2017-12-05 11:17 | CON.CARD ---
Consult Consult Specialty:: Cardiology Referred by:: Manuel Reason for Consultation:: pulmonary embolism - History of Present Illness Chief Complaint: dyspnea on exertion History of Present Illness: 51F h/o breast cancer and secondary brain cancer p/w dyspnea on exertion with bilateral PE on CT with D-dimer 24,091. Was walking up a hill to work and noticed she was more short of breath than normal, gasping for air. CT chest showed bilateral PE. Was started on heparin gtt in ER, now on lovenox. No chest pain, palps, dizziness. - History Source History Provided By: Patient Limitations to Obtaining History: No Limitations - Past Medical History ...LMP: 12/30/15 ...: No Heme/Onc: Yes: Cancer Additional Medical History: Breast cancer - Past Surgical History Past Surgical History: Yes: Hernia Repair (hiatal), Mastectomy (b/l) - Alcohol/Substance Use Hx Alcohol Use: No History of Substance Use: reports: None - Smoking History Smoking history: Former smoker Have you smoked in the past 12 months: No Aproximately how many cigarettes per day: 0 If you are a former smoker, when did you quit?: 11YRS - Social History ADL: Independent History of Recent Travel: No Home Medications - Allergies Allergies/Adverse Reactions: Allergies Allergy/AdvReac Type Severity Reaction Status Date / Time codeine [Codeine] Allergy Mild Itching Verified 12/04/17 11:36 POWDER GLOVES Allergy Intermediate Rash Uncoded 12/04/17 11:36 - Home Medications Home Medications: Ambulatory Orders Anastrozole [Arimidex -] 1 tab PO DAILY 09/06/17 Family Disease History - Family Disease History Family Disease History: Heart Disease: Mother (HTN), Respiratory: Brother ( asthma) Review of Systems - Review of Systems Constitutional: reports: No Symptoms Eyes: reports: No Symptoms HENT: reports: No Symptoms Neck: reports: No Symptoms Cardiovascular: reports: No Symptoms Respiratory: reports: SOB on Exertion Gastrointestinal: reports: No Symptoms Genitourinary: reports: No Symptoms Musculoskeletal: reports: No Symptoms Integumentary: reports: No Symptoms Neurological: reports: No Symptoms Endocrine: reports: No Symptoms Hematology/Lymphatic: reports: No Symptoms Psychiatric: reports: No Symptoms Vital Signs: Vital Signs Temperature 98.8 F 12/05/17 09:18 Pulse Rate 71 12/05/17 09:18 Respiratory Rate 20 12/05/17 09:18 Blood Pressure 94/62 12/05/17 09:18 O2 Sat by Pulse Oximetry (%) 98 12/04/17 20:05 Constitutional: Yes: Well Nourished, No Distress Eyes: Yes: Conjunctiva Clear, EOM Intact HENT: Yes: Atraumatic, Normocephalic Neck: Yes: Supple, Trachea Midline Respiratory: Yes: Regular, CTA Bilaterally Gastrointestinal: Yes: Normal Bowel Sounds, Soft Cardiovascular: Yes: Regular Rate and Rhythm JVD: No Carotid Bruit: No PMI: Non-Displaced Heart Sounds: Yes: S1, S2 Musculoskeletal: No: Back Pain Extremities: No: Cyanosis Edema: No Peripheral Pulses WNL: Yes Peripheral Pulses: 2+ Left Doralis Pedis, 2+ Right Dorsalis Pedis Integumentary: No: Jaundice Neurological: Yes: Alert, Oriented ...Motor Strength: WNL Psychiatric: Yes: Alert, Oriented - Other Data Labs, Other Data: CBC, BMP 12/05/17 05:30 12/05/17 05:30 INR, PTT INR 1.19 (0.83-1.09) H 12/05/17 05:30 Troponin, BNP 12/04/17 13:21 Troponin I < 0.02 B-Natriuretic Peptide 38.2 Troponin, BNP 12/04/17 13:21 Troponin I < 0.02 B-Natriuretic Peptide 38.2 Assessment/Plan EKG: sinus rhythm, nonspecific T wave changes CTA chest : bilateral PE involving prox and distal branches of R and L lower lobe PA bilaterally 51F h/o breast cancer and secondary brain cancer p/w dyspnea on exertion with bilateral PE dyspnea on exertion, pulmonary emboli - on heparin gtt initially, now on lovenox given history of malignancy - check echocardiogram to evaluate R heart, pulm pressures - pulm consulted, Dr. Reed H/o breast cancer - on arimidex per primary
--- NOTE | 2017-12-05 11:52 | CONSULT ---
Consultation: REQUESTING PROVIDER: Shruthi CONSULT REQUEST: We have been asked to medically evaluate this patient for pulmonology evaluation following b/l Pulmonary Emboli. 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 Pt presented with complaint of 1 week of SOB on exertion. She stated the first episode was one week ago, she became very SOB upon walking quickly. She stated it resolved with rest. 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 Until last week, she has never had any history of SOB or any similar episodes. She denies any calf tenderness, swelling, or erythema recently. She denies any diagnose family history of clotting disorders or any personal history of DVT or PE, though she does endorse that her daughter required "blood thinners during all 3 of her pregnancies." Pt states she is on Anastrozole daily for maintenance therapy of her Breast CA. She states she recently had an MRI of her brain which was completely clean as well as MRIs of her breast which were also clean. Pt is a former smoker but only smoked socially at parties, claims similar alcohol use, and denies drug use ever. She States that her Mother had a history of heart failure and her brother has a history of asthma. She denies any other past medical history other than the cancer hx. She states that currently she is not having any SOB or dyspnea on exertion and has been able to ambulate to the bathroom and back without any difficulty. REVIEW OF SYSTEMS: CONSTITUTIONAL: Absent: fever, chills, diaphoresis, generalized weakness, malaise, loss of appetite, weight change HEENT: Absent: rhinorrhea, nasal congestion, throat pain, throat swelling, difficulty swallowing, mouth swelling, ear pain, eye pain, visual changes CARDIOVASCULAR: Absent: chest pain, syncope, palpitations, irregular heart rate, lightheadedness , peripheral edema RESPIRATORY: cough, shortness of breath, dyspnea with exertion Absent: , orthopnea, wheezing, stridor, hemoptysis GASTROINTESTINAL: Absent: abdominal pain, abdominal distension, nausea, vomiting, diarrhea, constipation, melena, hematochezia GENITOURINARY: Absent: dysuria, frequency, urgency, hesitancy, hematuria, flank pain, genital pain MUSCULOSKELETAL: Absent: myalgia, arthralgia, joint swelling, back pain, neck pain SKIN: Absent: rash, itching, pallor HEMATOLOGIC/IMMUNOLOGIC: Absent: easy bleeding, easy bruising, lymphadenopathy, frequent infections ENDOCRINE: Absent: unexplained weight gain, unexplained weight loss, heat intolerance, cold intolerance NEUROLOGIC: Absent: headache, focal weakness or paresthesias, dizziness, unsteady gait, seizure, mental status changes, bladder or bowel incontinence PSYCHIATRIC: Absent: anxiety, depression, suicidal or homicidal ideation, hallucinations. PHYSICAL EXAMINATION Vital Signs - 24 hr 12/04/17 12/04/17 12/04/17 11:34 17:39 20:05 Temperature 98.7 F 98.1 F Pulse Rate 85 76 84 Pulse Rate [ 84 Apical] Respiratory 18 20 16 Rate Blood Pressure 105/62 126/70 Blood Pressure 113/72 [Right Arm] O2 Sat by Pulse 98 97 98 Oximetry (%) 12/05/17 12/05/17 12/05/17 02:00 06:00 09:18 Temperature 98.6 F 98.4 F 98.8 F Pulse Rate 66 69 71 Pulse Rate [ Apical] Respiratory 20 20 20 Rate Blood Pressure 113/66 118/69 94/62 Blood Pressure [Right Arm] O2 Sat by Pulse Oximetry (%) GENERAL: A&O, no acute distress HEAD: Normocephalic, atraumatic. EYES: PERRL, no scleral icterus EARS, NOSE, THROAT: oropharynx clear without exudates. Moist mucous membranes. NECK: supple without lymphadenopathy LUNGS: CTA b/l, no crackles or wheezes HEART: Regular rate and rhythm, normal S1 and S2 without murmur ABDOMEN: Soft, nontender to palpation, normoactive bowel sounds EXTREMITIES: 2+ pulses, warm, well-perfused. No peripheral edema. No calf tenderness or erythema Laboratory Results - last 24 hr 12/04/17 12/04/17 12/04/17 12:49 12:49 13:21 WBC 6.8 RBC 4.34 Hgb 11.9 Hct 36.9 D MCV 84.9 MCH 27.3 MCHC 32.1 RDW 16.8 H Plt Count 197 D MPV 9.4 Absolute Neuts (auto) 3.9 Neutrophils % 57.4 Lymphocytes % 33.5 D Monocytes % 4.9 Eosinophils % 3.4 D Basophils % 0.8 D Nucleated RBC % 0 PT with INR 13.00 INR 1.10 H PTT (Actin FS) 26.2 D-Dimer Sodium 141 Potassium 4.4 Chloride 110 H Carbon Dioxide 24 Anion Gap 7 L BUN 10 Creatinine 0.7 Creat Clearance w eGFR > 60 Random Glucose 70 L Calcium 9.3 Magnesium 2.2 Total Bilirubin 0.5 AST 23 ALT 25 Alkaline Phosphatase 123 H Creatine Kinase 122 Troponin I < 0.02 B-Natriuretic Peptide 38.2 Total Protein 8.3 H Albumin 3.7 12/04/17 12/05/17 12/05/17 14:22 05:30 05:30 WBC 6.6 RBC 4.06 Hgb 10.8 Hct 34.4 MCV 84.7 MCH 26.6 MCHC 31.4 L RDW 16.3 H Plt Count 164 MPV 9.1 Absolute Neuts (auto) Neutrophils % Lymphocytes % Monocytes % Eosinophils % Basophils % Nucleated RBC % PT with INR 14.10 H INR 1.19 H PTT (Actin FS) 194.3 H D-Dimer 73423 H Sodium Potassium Chloride Carbon Dioxide Anion Gap BUN Creatinine Creat Clearance w eGFR Random Glucose Calcium Magnesium Total Bilirubin AST ALT Alkaline Phosphatase Creatine Kinase Troponin I B-Natriuretic Peptide Total Protein Albumin 12/05/17 05:30 WBC RBC Hgb Hct MCV MCH MCHC RDW Plt Count MPV Absolute Neuts (auto) Neutrophils % Lymphocytes % Monocytes % Eosinophils % Basophils % Nucleated RBC % PT with INR INR PTT (Actin FS) D-Dimer Sodium 143 Potassium 4.2 Chloride 109 H Carbon Dioxide 29 Anion Gap 5 L BUN 9 Creatinine 0.7 Creat Clearance w eGFR > 60 Random Glucose 85 Calcium 9.1 Magnesium Total Bilirubin AST ALT Alkaline Phosphatase Creatine Kinase Troponin I B-Natriuretic Peptide Total Protein Albumin Active Medications Generic Name Dose Route Start Last Admin Trade Name Freq PRN Reason Stop Dose Admin Acetaminophen 650 mg 12/04/17 19:02 Tylenol - PO Q4H PRN PAIN Anastrozole 1 mg 12/05/17 10:00 Arimidex - PO DAILY VAL Docusate Sodium 100 mg 12/04/17 22:00 12/05/17 06:13 Colace - PO 100 mg TID VAL Administration Enoxaparin Sodium 75 mg 12/05/17 10:30 12/05/17 10:56 Lovenox - SQ 75 mg BID VAL Administration ASSESSMENT/PLAN: 51 yo Female with PMH of Breast Cancer s/p b/l Mastectomy with reconstruction in remission for 8 years, and Secondary mets to brain s/p resection in June 2017 with no deficits. Admitted following one week of SOB and NEAL, found with b/l PEs on CTA. B/L Pulmonary Emboli -CTA noted with b/l PE in proximal and distal branches of R and L LL pulmary artery and to a lesser extent the proximal and distal RU and RM lobes as well -Lovenox 75 mg SQ BID, continue, Coumadin/Eliquis currently not indication with cancer hx -On Anastrozole pt should theoretically be at lower risk for VTE than other Hormonal therapy as Aromatase inhibitors decrease Estrogen formation -Pt's daughter with hypercoagulability during -Though cancer hx noted, pt could benefit from hypercoagulability workup via Hematology as an outpatient -Heme/Onc Consulted -D-Dimer noted: [id number] -Troponin negative, BNP 38 -Hemodynamically stable -Cardiology Consult appreciated -ECHO pending, check for Mcclain's sign or PAH -Consider IR guided embolectomy Hx Breast CA -Pt states recent scans negative -[place]s [place] Oncologist [place] the city -Continue Daily Anastrozole DVT Prophylaxis -Lovenox 75 mg SQ BID as above FEN -Fluids: None -Electrolytes: No electrolyte abnormalities -Nutrition: Regular Diet Dispo: We will continue to follow the patient. Thank you for this consultative opportunity. Visit type - Emergency Visit Emergency Visit: Yes ED Registration Date: 12/04/17 Care time: The patient presented to the Emergency Department on the above date and was hospitalized for further evaluation of their emergent condition. - New Patient This patient is new to me today: Yes Date on this admission: 12/05/17 - Critical Care Critical Care patient: No
[2017-12-05] MEDS: ANASTROZOLE 1 MG TABLET PO SCH (14:07)
--- NOTE | 2017-12-05 14:18 | PN ---
Teaching Attending Note Name of Resident: Ruiz Chowdhury ATTENDING PHYSICIAN STATEMENT I saw and evaluated the patient. I reviewed the resident's note and discussed the case with the resident. I agree with the resident's findings and plan as documented. PULMONARY IMP DYSPNEA BILATERAL PULMONARY EMBOLISM H/O BREAST CA BILATERAL MASTECTOMY,RT S/O RECENT BRAIN MET S/P RESECTION PLAN AC CONSIDER LOVENOX O2 NEEDED DUPLEX LOWER EXTREMITIES W/U HYPERCOAGULABLE STATE ECHO DR CORDERO Problem List - Problems (1) Dyspnea on minimal exertion Code(s): R06.09 - OTHER FORMS OF DYSPNEA (2) Pulmonary embolism Code(s): I26.99 - OTHER PULMONARY EMBOLISM WITHOUT ACUTE COR PULMONALE Qualifiers: Pulmonary embolism type: other Chronicity: acute Acute cor pulmonale presence: without acute cor pulmonale Qualified Code(s): I26.99 - Other pulmonary embolism without acute cor pulmonale (3) Brain neoplasm Code(s): D49.6 - NEOPLASM OF UNSPECIFIED BEHAVIOR OF BRAIN
--- NOTE | 2017-12-05 14:28 | PN ---
Progress Note, Physician Chief Complaint: Ms Cheung is without complaint today. Says she is no longer sob. No cp, n/v. - Current Medication List Current Medications: Active Medications Acetaminophen (Tylenol -) 650 mg PO Q4H PRN PRN Reason: PAIN Anastrozole (Arimidex -) 1 mg PO DAILY [facility] Last Admin: 12/05/17 14:07 Dose: 1 mg Docusate Sodium (Colace -) 100 mg PO TID [facility] Last Admin: 12/05/17 14:07 Dose: 100 mg Enoxaparin Sodium (Lovenox -) 75 mg SQ BID [facility] Last Admin: 12/05/17 10:56 Dose: 75 mg - Objective Vital Signs: Vital Signs Temperature 37.1 C 12/05/17 09:18 Pulse Rate 71 12/05/17 09:18 Respiratory Rate 20 12/05/17 09:18 Blood Pressure 94/62 12/05/17 09:18 O2 Sat by Pulse Oximetry (%) 98 12/04/17 20:05 Constitutional: Yes: Well Nourished, No Distress, Calm Cardiovascular: Yes: Regular Rate and Rhythm. No: Gallop, Murmur, Rub Respiratory: Yes: Regular, CTA Bilaterally. No: Rales, Rhonchi, Wheezes Gastrointestinal: Yes: Normal Bowel Sounds, Soft. No: Distention, Tenderness Extremities: Yes: WNL Edema: No Labs: CBC, BMP 12/05/17 05:30 12/05/17 05:30 INR, PTT INR 1.19 (0.83-1.09) H 12/05/17 05:30 Problem List - Problems (1) Pulmonary embolism Code(s): I26.99 - OTHER PULMONARY EMBOLISM WITHOUT ACUTE COR PULMONALE Qualifiers: Pulmonary embolism type: other Chronicity: acute Acute cor pulmonale presence: without acute cor pulmonale Qualified Code(s): I26.99 - Other pulmonary embolism without acute cor pulmonale (2) Brain neoplasm Code(s): D49.6 - NEOPLASM OF UNSPECIFIED BEHAVIOR OF BRAIN (3) History of breast cancer Code(s): Z85.3 - PERSONAL HISTORY OF MALIGNANT NEOPLASM OF BREAST Assessment/Plan -case d/w pulmonary -change heparin gtt to lovenox -secondary to malignancy -consult heme/onc -looks improved
--- NOTE | 2017-12-05 17:04 | CONSULT ---
Consult Consult Specialty:: Heme/Onc Referred by:: Dr. Reed Reason for Consultation:: History of breast Ca now with PE - History of Present Illness Chief Complaint: Shortness of breath History of Present Illness: Patient is a 51F with PMH of breast Ca treated with radiation and bilateral modified radical mastectomies with reconstruction with implants, presents to the hospital with a 1-2 week history of subtle shortness of breath. She states she would notice her SOB when she would exert herself but recently it was getting worse so she came to the hospital and had a CTA of the chest which showed bilateral PE. Patient denies travel or prolonged periods where she is not moving. Patient recently had brain surgery for brain mets and radiation. She is on Arimidex for breast Ca. She states her daughter needed to go on anticoagulation for all 3 of her pregnancies. She currently denies nausea vomiting fever chills chest pain or shortness of breath. She denies urinary or GI symptoms. She denies leg swelling or leg pain. - History Source History Provided By: Patient Limitations to Obtaining History: No Limitations - Past Medical History ...LMP: 12/30/15 ...: No Heme/Onc: Yes: Cancer (breast) Additional Medical History: Breast cancer - Past Surgical History Past Surgical History: Yes: Hernia Repair (hiatal), Mastectomy (b/l) - Alcohol/Substance Use Hx Alcohol Use: No History of Substance Use: reports: None - Smoking History Smoking history: Former smoker Have you smoked in the past 12 months: No Aproximately how many cigarettes per day: 0 If you are a former smoker, when did you quit?: 11YRS - Social History ADL: Independent History of Recent Travel: No Home Medications - Allergies Allergies/Adverse Reactions: Allergies Allergy/AdvReac Type Severity Reaction Status Date / Time codeine [Codeine] Allergy Mild Itching Verified 12/04/17 11:36 POWDER GLOVES Allergy Intermediate Rash Uncoded 12/04/17 11:36 - Home Medications Home Medications: Ambulatory Orders Anastrozole [Arimidex -] 1 tab PO DAILY 09/06/17 Family Disease History - Family Disease History Family Disease History: Heart Disease: Mother (HTN), Respiratory: Brother ( asthma) Review of Systems - Review of Systems Constitutional: denies: No Symptoms, Chills, Diaphoresis, Fever, Lethargy, Loss of Appetite, Malaise, Night Sweats, Unintentional Wgt. Loss, Weakness, Other Eyes: denies: No Symptoms, Blind Spots, Blurred Vision, Double Vision, Eye Pain , Floaters, Photophobia, Recent Change in Vision, Other HENT: denies: No Symptoms, Difficult Swallowing, Ear Discharge, Ear Pain, Epistaxis, Gingival Bleeding, Hearing Loss, Mouth Swelling, Nasal Congestion, Ocular Prosthesis, Throat Pain, Toothache, Ringing in Ears, Other Neck: denies: No Symptoms, Decreased ROM, Lumps, Pain on Movement, Stiffness, Swollen Glands, Tenderness, Other Cardiovascular: reports: Shortness of Breath Respiratory: reports: SOB, SOB on Exertion Gastrointestinal: denies: No Symptoms, Abdominal Pain, Bloating, Constipation, Diarrhea, Dysphagia, Indigestion, Melena, Nausea, Rectal Bleeding, Vomiting, Vomiting Blood, Other Genitourinary: denies: No Symptoms, Burning, Discharge, Dysuria, Flank Pain, Frequency, Hematuria, Incontinence, Lesions, Menses, Pain, Testicular Mass, Testicular Pain, Testicular Swelling, Urgency, Vaginal Bleeding, Other Breasts: denies: No Symptoms Reported, See HPI, Breast Implants, Discharge from Nipple, Lumps, Pain, Skin Changes, Other Musculoskeletal: denies: No Symptoms, Back Pain, Crepitus, Decreased ROM, Extremity Pain, Joint Pain, Joint Swelling, Muscle Pain, Muscle Cramps, Muscle Weakness, Other Integumentary: denies: No Symptoms, Blister, Bruising, Change in Color, Eczema, Erythema, Incision, Lesions, Lump, Pallor, Pruritis, Rash, Wound, Other Physical Exam Vital Signs: Vital Signs Temperature 98.8 F 12/05/17 09:18 Pulse Rate 71 12/05/17 09:18 Respiratory Rate 20 12/05/17 09:18 Blood Pressure 94/62 12/05/17 09:18 O2 Sat by Pulse Oximetry (%) 100 12/05/17 09:00 Constitutional: Yes: Well Nourished, No Distress, Calm Eyes: Yes: WNL, Conjunctiva Clear, EOM Intact HENT: Yes: Atraumatic, Normocephalic Neck: Yes: Supple, Trachea Midline. No: Lymphadenopathy Cardiovascular: Yes: Regular Rate and Rhythm, S1, S2. No: Murmur Respiratory: Yes: Regular, CTA Bilaterally Gastrointestinal: Yes: WNL, Normal Bowel Sounds, Soft Renal/: No: CVA Tenderness - Left, CVA Tenderness - Right Breast(s): Yes: Breast Implants, Other (no masses appreciated) Extremities: No: Calf Tenderness Edema: No Neurological: Yes: Alert, Oriented Labs: CBC, BMP 12/05/17 05:30 12/05/17 05:30 Imaging - Results X-ray: Report Reviewed, Image Reviewed Cat Scan: Report Reviewed, Image Reviewed Assessment/Plan 51F with history of breast Ca with metastatsis to the brain s/p radiation and resection a few months ago this year presents with shortness of breath found to have bilateral pulmonary emboli. Problem List: History of breast Ca History of metastatic brain lesion Bilateral pulmonary emboli hypercoagulable state Plan: Patient has a hypercoagulable state given her history which is likely the cause for her pulmonary emboli. Would leave on lovenox for 3-6 months and transition to NOAC/DOAC Patient can have a hypercoagulable workup as outpatient in view of her daughter needing anticoagulation during follow up with hematology/oncology as outpatient. 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 duplex US negative for DVT Thank you for this consultative opportunity Case discussed with Dr. Cortes
--- NOTE | 2017-12-05 17:25 | ECHO ---
Name: ROWENA DE LEÓN Exam:Adult Echocardiogram Study Date: 12/05/2017 12:16 PM Age: 51 yrs Reason For Study: PULMONARY EMBOLISM Height: 64 in Weight: 165 lb BSA: 1.8 m2 MMode/2D Measurements & Calculations IVSd: 0.87 cm Ao root diam: 2.9 cm LVIDd: 3.9 cm LA dimension: 3.1 cm LVIDs: 2.9 cm LVPWd: 0.82 cm EDV(Teich): 67.0 ml ESV(Teich): 33.0 ml Doppler Measurements & Calculations MV E max cristobal: 50.8 cm/sec Ao V2 max: 110.4 cm/sec MV A max cristobal: 64.7 cm/sec Ao max P.9 mmHg MV E/A: 0.79 MV dec time: 0.19 sec LV V1 max P.7 mmHg TR max cristobal: 224.0 cm/sec LV V1 max: 65.1 cm/sec TR max P.2 mmHg Med Peak E' Cristobal: 4.2 cm/sec Med E/e': 12.1 Lat Peak E' Cristobal: 12.6 cm/sec Lat E/e': 4.0 Procedure A complete two-dimensional transthoracic echocardiogram was performed (2D, M-mode, Doppler and color flow Doppler). Left Ventricle The left ventricular size, thickness and function are normal. Ejection Fraction = 65%. The transmitra l spectral Doppler flow pattern is suggestive of impaired LV relaxation. The left ventricular wall adelaide on is normal. Right Ventricle The right ventricle is normal in size and function. Atria Normal left and right atrial size and function. Mitral Valve The mitral valve is grossly normal. There is trace mitral regurgitation. Tricuspid Valve There is trace tricuspid regurgitation. Right ventricular systolic pressure is 20 mmhg. Doppler findi ngs do not suggest pulmonary hypertension. Aortic Valve The aortic valve is normal in structure and function. Pulmonic Valve The pulmonic valve is not well seen, but is grossly normal. Trace pulmonic valvular regurgitation. Great Vessels The aortic root is normal size. Pericardium/Pleura There is no pericardial effusion. There is no pleural effusion. Interpretation Summary The left ventricular size, thickness and function are normal Ejection Fraction = 65%. The right ventricle is normal in size and function. There is trace mitral regurgitation. There is trace tricuspid regurgitation. Trace pulmonic valvular regurgitation. MD Juventino Solares 12/05/2017 05:24 PM
--- NOTE | 2017-12-05 18:02 | PN ---
Teaching Attending Note Name of Resident: Guero Sutherland ATTENDING PHYSICIAN STATEMENT I saw and evaluated the patient. I reviewed the resident's note and discussed the case with the resident. I agree with the resident's findings and plan as documented. SUBJECTIVE: Patient seen and examined Agree with plans. Hypercoaguable state from malignancy. CLOT study shows benefit of LMWH vs . coumadin in VTE. jail LMWH may be problematic such that after 3-6 months might consider change to DOAC. In view of family history - thrombophilia work up as out patient might be of benefit if not previously done. OBJECTIVE: ASSESSMENT AND PLAN:
[2017-12-06] MEDS: DOCUSATE SODIUM 100 MG CAPSULE (FP) PO SCH ×3 (05:55→21:26)
[2017-12-06 06:37] LABS: BASO % 0.6 % (0-2.0); EOS % 5.6 % (0-4.5); HEMATOCRIT 34.6 % (32.4-45.2); HEMOGLOBIN 10.9 GM/dL (10.7-15.3); LYMPH % 41.2 % (8-40); MCH 26.7 pg (25.7-33.7); MCHC 31.4 g/dl (32.0-36.0); MEAN CELL VOLUME 84.9 fl (80-96); MONO % 6.9 % (3.8-10.2); NEUT % 45.7 % (42.8-82.8); PLATELET COUNT 170 K/MM3 (134-434); RBC 4.07 M/mm3 (3.60-5.2); RDW 16.7 % (11.6-15.6); WHITE BLOOD COUNT 5.4 K/mm3 (4.0-10.0)
[2017-12-06 07:21] LABS: ANION GAP 5 MMOL/L (8-16); BLOOD UREA NITROGEN 9 mg/dL (7-18); CHLORIDE 110 mmol/L (98-107); CO2 28 mmol/L (21-32); CREATININE 0.7 mg/dL (0.55-1.3); GLUCOSE,RANDOM 81 mg/dL (74-106); MAGNESIUM 2.2 mg/dL (1.8-2.4); PHOSPHOROUS 4.2 mg/dL (2.5-4.9); POTASSIUM 4.3 mmol/L (3.5-5.1); SODIUM 144 mmol/L (136-145)
--- NOTE | 2017-12-06 09:09 | PN ---
Physical Exam: SUBJECTIVE: Patient seen and examined this AM. She says that she still feels well and denies any SOB or NEAL. She states she did not give herself the Lovenox this Am but is learning and will give it to herself tonight. OBJECTIVE: Vital Signs Period Temp Pulse Resp BP Sys/Vasquez Pulse Ox Last 24 Hr 98.4 F-99 F 64-87 20-20 94-117/52-76 100 GENERAL: A&O, no acute distress HEAD: Normocephalic, atraumatic. EYES: PERRL, no scleral icterus EARS, NOSE, THROAT: oropharynx clear without exudates. Moist mucous membranes. NECK: supple without lymphadenopathy LUNGS: CTA b/l, no crackles or wheezes HEART: Regular rate and rhythm, normal S1 and S2 without murmur ABDOMEN: Soft, nontender to palpation, normoactive bowel sounds EXTREMITIES: 2+ pulses, warm, well-perfused. No peripheral edema. No calf tenderness or erythema Laboratory Results - last 24 hr 12/06/17 12/06/17 05:30 05:30 WBC 5.4 RBC 4.07 Hgb 10.9 Hct 34.6 MCV 84.9 MCH 26.7 MCHC 31.4 L RDW 16.7 H Plt Count 170 MPV 9.0 Absolute Neuts (auto) 2.5 Neutrophils % 45.7 D Lymphocytes % 41.2 H D Monocytes % 6.9 Eosinophils % 5.6 H Basophils % 0.6 Nucleated RBC % 0 Sodium 144 Potassium 4.3 Chloride 110 H Carbon Dioxide 28 Anion Gap 5 L BUN 9 Creatinine 0.7 Creat Clearance w eGFR > 60 Random Glucose 81 Calcium 9.0 Phosphorus 4.2 Magnesium 2.2 Active Medications Generic Name Dose Route Start Last Admin Trade Name Freq PRN Reason Stop Dose Admin Acetaminophen 650 mg 12/04/17 19:02 Tylenol - PO Q4H PRN PAIN Anastrozole 1 mg 12/05/17 10:00 12/05/17 14:07 Arimidex - PO 1 mg DAILY VAL Administration Docusate Sodium 100 mg 12/04/17 22:00 12/06/17 05:55 Colace - PO 100 mg TID VAL Administration Enoxaparin Sodium 75 mg 12/05/17 10:30 12/05/17 21:30 Lovenox - SQ 75 mg BID VAL Administration ASSESSMENT/PLAN: 51 yo Female with PMH of Breast Cancer s/p b/l Mastectomy with reconstruction in remission for 8 years, and Secondary mets to brain s/p resection in June 2017 with no deficits. Admitted following one week of SOB and NEAL, found with b/l PEs on CTA. B/L Pulmonary Emboli -CTA noted with b/l PE in proximal and distal branches of R and L LL pulmary artery and to a lesser extent the proximal and distal RU and RM lobes as well -Lovenox 75 mg SQ BID, will require for 6 months and can possibly be converter to PO Anticoagulation -On Anastrozole pt should theoretically be at lower risk for VTE than other Hormonal therapy as Aromatase inhibitors decrease Estrogen formation -Pt's daughter with hypercoagulability during -Though cancer hx noted, pt could benefit from hypercoagulability workup via Hematology as an outpatient -Heme/Onc Consult noted -D-Dimer noted: [id number] -Troponin negative, BNP 38 -Hemodynamically stable -Cardiology Consult appreciated -ECHO Normal -Vascular Study negative for DVT Hx Breast CA -Pt states recent scans negative -Follows [place] Oncologist [place] the city -Continue Daily Anastrozole DVT Prophylaxis -Lovenox 75 mg SQ BID as above FEN -Fluids: None -Electrolytes: No electrolyte abnormalities -Nutrition: Regular Diet Dispo: We will continue to follow the patient. Thank you for this consultative opportunity. Visit type - Emergency Visit Emergency Visit: Yes ED Registration Date: 12/04/17 Care time: The patient presented to the Emergency Department on the above date and was hospitalized for further evaluation of their emergent condition. - New Patient This patient is new to me today: No - Critical Care Critical Care patient: No
[2017-12-06] MEDS ORDERED: PT OWN MED DRAWER 7, Y5N ONE (09:46)
[2017-12-06] MEDS: ENOXAPARIN NA (PORCINE) 80 MG/0.8 ML DISP.SYRIN SQ SCH ×2 (09:48→21:26)
[2017-12-06] MEDS: ANASTROZOLE 1 MG TABLET PO SCH (09:48)
--- NOTE | 2017-12-06 11:50 | PN ---
Progress Note (short form) - Note Progress Note: Chief Complaint: dyspnea on exertion s: feels better, no dyspnea, palps, chest pain. has been walking to bathroom without issues Current Medications Acetaminophen (Tylenol -) 650 mg PO Q4H PRN PRN Reason: PAIN Anastrozole (Arimidex -) 1 mg PO DAILY [facility] Last Admin: 12/06/17 09:48 Dose: 1 mg Docusate Sodium (Colace -) 100 mg PO TID [facility] Last Admin: 12/06/17 05:55 Dose: 100 mg Enoxaparin Sodium (Lovenox -) 75 mg SQ BID [facility] Last Admin: 12/06/17 09:48 Dose: 75 mg Vital Signs: Vital Signs Period Temp Pulse Resp BP Sys/Vasquez Pulse Ox Last 24 Hr 98.2 F-99 F 64-87 18-20 98-133/52-79 100 Constitutional: Yes: Well Nourished, No Distress Eyes: Yes: Conjunctiva Clear, EOM Intact HENT: Yes: Atraumatic, Normocephalic Neck: Yes: Supple, Trachea Midline Respiratory: Yes: Regular, CTA Bilaterally Gastrointestinal: Yes: Normal Bowel Sounds, Soft Cardiovascular: Yes: Regular Rate and Rhythm JVD: No Carotid Bruit: No PMI: Non-Displaced Heart Sounds: Yes: S1, S2 Musculoskeletal: No: Back Pain Extremities: No: Cyanosis Edema: No Peripheral Pulses WNL: Yes Peripheral Pulses: 2+ Left Doralis Pedis, 2+ Right Dorsalis Pedis Integumentary: No: Jaundice Neurological: Yes: Alert, Oriented ...Motor Strength: WNL Psychiatric: Yes: Alert, Oriented Assessment/Plan EKG: sinus rhythm, nonspecific T wave changes CTA chest : bilateral PE involving prox and distal branches of R and L lower lobe PA bilaterally echo 11/2017 nl LV/RV function, no pulm HTN, tr MR, tr TR 51F h/o breast cancer and secondary brain cancer p/w dyspnea on exertion with bilateral PE dyspnea on exertion, pulmonary emboli - on heparin gtt initially, now on lovenox given history of malignancy - echo shows nl R heart, no pulm HTN - pulm consulted, Dr. Reed, hematology Dr. Cortes - cont lovenox H/o breast cancer - on arimidex per primary
--- NOTE | 2017-12-06 14:26 | PN ---
Teaching Attending Note Name of Resident: Ruiz Chowdhury ATTENDING PHYSICIAN STATEMENT I saw and evaluated the patient. I reviewed the resident's note and discussed the case with the resident. I agree with the resident's findings and plan as documented. Pulmonary no distress,cp,dyspnea improving IMP DYSPNEA BILATERAL PULMONARY EMBOLISM H/O BREAST CA BILATERAL MASTECTOMY,RT S/O RECENT BRAIN MET S/P RESECTION PLAN LOVENOX O2 NEEDED W/U HYPERCOAGULABLE STATE DR CORDERO Problem List - Problems (1) Dyspnea on minimal exertion Code(s): R06.09 - OTHER FORMS OF DYSPNEA (2) Pulmonary embolism Code(s): I26.99 - OTHER PULMONARY EMBOLISM WITHOUT ACUTE COR PULMONALE Qualifiers: Pulmonary embolism type: other Chronicity: acute Acute cor pulmonale presence: without acute cor pulmonale Qualified Code(s): I26.99 - Other pulmonary embolism without acute cor pulmonale (3) Brain neoplasm Code(s): D49.6 - NEOPLASM OF UNSPECIFIED BEHAVIOR OF BRAIN Problem List - Problems (1) Dyspnea on minimal exertion Code(s): R06.09 - OTHER FORMS OF DYSPNEA (2) Pulmonary embolism Code(s): I26.99 - OTHER PULMONARY EMBOLISM WITHOUT ACUTE COR PULMONALE Qualifiers: Pulmonary embolism type: other Chronicity: acute Acute cor pulmonale presence: without acute cor pulmonale Qualified Code(s): I26.99 - Other pulmonary embolism without acute cor pulmonale (3) Brain neoplasm Code(s): D49.6 - NEOPLASM OF UNSPECIFIED BEHAVIOR OF BRAIN
--- NOTE | 2017-12-06 14:56 | PN ---
Progress Note, Physician Chief Complaint: Ms Cheung says she is feeling well today. No cp, sob, n/v. - Current Medication List Current Medications: Active Medications Acetaminophen (Tylenol -) 650 mg PO Q4H PRN PRN Reason: PAIN Anastrozole (Arimidex -) 1 mg PO DAILY [facility] Last Admin: 12/06/17 09:48 Dose: 1 mg Docusate Sodium (Colace -) 100 mg PO TID [facility] Last Admin: 12/06/17 14:19 Dose: 100 mg Enoxaparin Sodium (Lovenox -) 75 mg SQ BID [facility] Last Admin: 12/06/17 09:48 Dose: 75 mg - Objective Vital Signs: Vital Signs Temperature 36.8 C 12/06/17 08:30 Pulse Rate 65 12/06/17 08:30 Respiratory Rate 18 12/06/17 08:30 Blood Pressure 133/79 12/06/17 08:30 O2 Sat by Pulse Oximetry (%) 100 12/05/17 21:00 Constitutional: Yes: Well Nourished, No Distress, Calm Cardiovascular: Yes: Regular Rate and Rhythm. No: Gallop, Murmur, Rub Respiratory: Yes: Regular, CTA Bilaterally. No: Rales, Rhonchi, Wheezes Gastrointestinal: Yes: Normal Bowel Sounds, Soft. No: Distention, Tenderness Extremities: Yes: WNL Edema: No Labs: CBC, BMP 12/06/17 05:30 12/06/17 05:30 INR, PTT INR 1.19 (0.83-1.09) H 12/05/17 05:30 Problem List - Problems (1) Pulmonary embolism Code(s): I26.99 - OTHER PULMONARY EMBOLISM WITHOUT ACUTE COR PULMONALE Qualifiers: Pulmonary embolism type: other Chronicity: acute Acute cor pulmonale presence: without acute cor pulmonale Qualified Code(s): I26.99 - Other pulmonary embolism without acute cor pulmonale (2) Brain neoplasm Code(s): D49.6 - NEOPLASM OF UNSPECIFIED BEHAVIOR OF BRAIN (3) History of breast cancer Code(s): Z85.3 - PERSONAL HISTORY OF MALIGNANT NEOPLASM OF BREAST Assessment/Plan -case d/w pulmonary -appreciate hematology assistance -continue lovenox -continue current regimen -will discharge home on lovenox -if remains stable, can discharge tomorrow
[2017-12-07] MEDS: DOCUSATE SODIUM 100 MG CAPSULE (FP) PO SCH (06:57)
[2017-12-07] MEDS ORDERED: PT OWN MED DRAWER 7, Y5N ONE (09:53)
[2017-12-07] MEDS: ANASTROZOLE 1 MG TABLET PO SCH (09:57)
[2017-12-07] MEDS: ENOXAPARIN NA (PORCINE) 80 MG/0.8 ML DISP.SYRIN SQ SCH (09:57)
--- NOTE | 2017-12-07 10:17 | PN ---
Progress Note (short form) - Note Progress Note: PULMONARY Denies shortness of breath or chest pain. Has been ambulating without dyspnea. Vital Signs Period Temp Pulse Resp BP Sys/Vasquez Pulse Ox Last 24 Hr 98 F-98.6 F 84-96 -18 109-132/64-67 100 Gen: NAD at rest Heart: RRR Lung: decreased breath sounds at the bases Abd: soft, nontender Ext: no edema CBC, BMP 12/06/17 05:30 12/06/17 05:30 Active Medications Acetaminophen (Tylenol -) 650 mg PO Q4H PRN PRN Reason: PAIN Anastrozole (Arimidex -) 1 mg PO DAILY [facility] Last Admin: 12/07/17 09:57 Dose: 1 mg Docusate Sodium (Colace -) 100 mg PO TID [facility] Last Admin: 12/07/17 06:57 Dose: 100 mg Enoxaparin Sodium (Lovenox -) 75 mg SQ BID [facility] Last Admin: 12/07/17 09:57 Dose: 75 mg A/P Acute Bilateral Pulmonary Emboli h/o Breast Ca with Brain Met s/p resection - continue LMWH - can d/c home from pulmonary standpoint
--- NOTE | 2017-12-07 11:27 | DS ---
Physical Examination Vital Signs: Vital Signs Temperature 36.6 C 12/07/17 06:00 Pulse Rate 84 12/07/17 06:00 Respiratory Rate 18 12/07/17 06:00 Blood Pressure 109/66 12/07/17 06:00 O2 Sat by Pulse Oximetry (%) 100 12/06/17 21:00 Constitutional: Yes: Well Nourished, No Distress, Calm Cardiovascular: Yes: Regular Rate and Rhythm. No: Gallop, Murmur, Rub Respiratory: Yes: Regular, CTA Bilaterally. No: Rales, Rhonchi, Wheezes Gastrointestinal: Yes: Normal Bowel Sounds, Soft. No: Distention, Tenderness Extremities: Yes: WNL Edema: No Labs: CBC, BMP 12/06/17 05:30 12/06/17 05:30 Discharge Summary Reason For Visit: PULMONARY EMBOLISM Current Active Problems Dyspnea on minimal exertion (Acute) Pulmonary embolism (Acute) Hospital Course: (1) Pulmonary embolism Code(s): I26.99 - OTHER PULMONARY EMBOLISM WITHOUT ACUTE COR PULMONALE Qualifiers: Pulmonary embolism type: other Chronicity: acute Acute cor pulmonale presence: without acute cor pulmonale Qualified Code(s): I26.99 - Other pulmonary embolism without acute cor pulmonale (2) Brain neoplasm Code(s): D49.6 - NEOPLASM OF UNSPECIFIED BEHAVIOR OF BRAIN (3) History of breast cancer Code(s): Z85.3 - PERSONAL HISTORY OF MALIGNANT NEOPLASM OF BREAST Ms Cheung is a very pleasant 51 year old female who presented with bilateral pulmonary embolism. She was admitted to the hospital and originally started on a heparin gtt. This was transitioned to lovenox 1mg/kg bid. Cardiology, pulmonary, and hematology were consulted and case was discussed. Lovenox is continued as this is secondary to malignancy causing a hypercoagulable state. She is stable and safe for discharge. 32 minutes spent in preparation of this discharge Condition: Good - Instructions Diet, Activity, Other Instructions: resume previous diet and activity Referrals: Lasha Reed MD [Staff Physician] - Kadeem Cohen MD [Primary Care Provider] - Aleksandra Aquino MD [Staff Physician] - Delvis Cortes MD [Staff Physician] - Disposition: HOME - Home Medications Comprehensive Discharge Medication List: Ambulatory Orders Anastrozole [Arimidex -] 1 tab PO DAILY 09/06/17 Enoxaparin [Lovenox -] 75 mg SQ BID #60 disp.syrin 12/07/17
[2017-12-07 12:00] VITALS: BP 120/68; PULSE 80; TEMP 98.5
== END 2017-12-07 12:42 | disposition home or self-care (01) | DRG 176 ==
LOC: JER 11:14 → JERBED 17:39 → J8W 20:52
PROVIDERS: ADMIT Internal Medicine Geriatric Medicine; ATTEND Internal Medicine Geriatric Medicine
DX: I26.99 Other pulmonary embolism without acute cor pulmonale (principal); D68.59 Other primary thrombophilia; D49.6 Neoplasm of unspecified behavior of brain; Z85.3 Personal history of malignant neoplasm of breast; Z87.891 Personal history of nicotine dependence
CPT/HCPCS: 36415; 71045-TC-FY; 71275-TC; 80048; 80053; 82550; 83735; 83880; 84100; 84484; 85025; 85027; 85379; 85610; 85730; 90688; 93005; 93010; 93306-TC; 93970-TC; 99284-25; G0008; J1644

== ENCOUNTER 2019-02-22 08:16 | Emergency (ER) | payer OTHER ==
[2019-02-22 08:32] VITALS: BMI 30.9
--- NOTE | 2019-02-22 09:01 | PDOC ---
History of Present Illness - General Chief Complaint: Constipation Stated Complaint: STOMACH DISCOMFORT Time Seen by Provider: 02/22/19 09:00 History Source: Patient Exam Limitations: No Limitations - History of Present Illness Initial Comments: 02/22/19 09:00 CHIEF COMPLAINT: Constipation HISTORY OF PRESENT ILLNESS: This is a 53-year-old female with a history of breast cancer s/p bilateral mastectomy/radiation, brain metastases s/p WB RT and craniotomy, bilateral pulmonary embolism on Eliquis, and hernia repair in 2018. Patient reports that shortly after her hernia repair, she fell onto her surgical site, and has since had some intermittent issues with a sensation of tightness in the abdomen. She presents today reporting 3 weeks of constipation. Last bowel movement was 3 days ago and very small. She is passing flatus. She reports that she was prompted to present today because of nausea and belching. PO intake has been reduced. Vital signs on arrival are notable for mild bradycardia 58 bpm, asymptomatic. REVIEW OF SYSTEMS: GENERAL/CONSTITUTIONAL: Chills, no fever. No weakness. No weight change. HEAD, EYES, EARS, NOSE AND THROAT: No change in vision. No ear pain or discharge. No sore throat. CARDIOVASCULAR: No chest pain or palpitations. RESPIRATORY: No cough, wheezing, or shortness of breath. GASTROINTESTINAL: See HPI. GENITOURINARY: No dysuria, frequency, or change in urination. MUSCULOSKELETAL: No joint or muscle swelling or pain. No neck or back pain. SKIN: No rash or easy bruising. NEUROLOGIC: No headache, vertigo, loss of consciousness, or loss of sensation. PSYCHIATRIC: No depression or anxiety. ENDOCRINE: No increased thirst. No abnormal weight change. HEMATOLOGIC/LYMPHATIC: Hx PE, on AC. ALLERGIC/IMMUNOLOGIC: No hives or skin allergy. No latex allergy. PHYSICAL EXAM: GENERAL: The patient is awake, alert, and fully oriented, in no acute distress. HEAD: Normal with no signs of trauma. ENT: Pupils equal, round and reactive to light, extraocular movements intact, sclera anicteric, conjunctiva clear. Neck supple. LUNGS: Clear to auscultation bilaterally. Normal excursion. No respiratory distress or use of accessory muscles. CV: RRR, S1/S2, no MRG. Cap refill < 2 sec. ABDOMEN: Softly distended, diffusely tender but not peritoneal. Bowel sounds present all 4 quadrants. Palpable, mildly tender mass mid-abdomen. EXTREMITIES: Normal range of motion, no edema. NEUROLOGICAL: Normal speech, normal gait. CN II-XII grossly intact. PSYCH: Normal mood, normal affect. SKIN: Warm, dry, normal turgor, no rashes or lesions noted. Past History - Past Medical History Allergies/Adverse Reactions: Allergies Allergy/AdvReac Type Severity Reaction Status Date / Time codeine [Codeine] Allergy Mild Itching Verified 12/04/17 11:36 POWDER GLOVES Allergy Intermediate Rash Uncoded 12/04/17 11:36 Home Medications: Ambulatory Orders Anastrozole [Arimidex -] 1 tab PO DAILY 09/06/17 Apixaban [Eliquis] 1 tab PO BID 02/28/18 Docusate Sodium [Colace] 100 mg PO TID #60 capsule 02/22/19 Polyethylene Glycol 3350 [Miralax (For Daily Use) -] 17 gm PO DAILY #1 bottle Sennosides [Senna] 8.6 mg PO HS #2 tablet 02/22/19 Anemia: No Asthma: No Cancer: Yes (BILATERAL BREAST CA WITH IMPLANTS 2010. brain) Cardiac Disorders: No CVA: No COPD: No CHF: No Dementia: No Diabetes: No GI Disorders: Yes (ACID REFLUX) Disorders: No HTN: No Hypercholesterolemia: No Liver Disease: No Seizures: No Thyroid Disease: No - Surgical History Abdominal Surgery: Yes (BILATERAL INGUNIAL HERNIA REPAIR ~2011) Appendectomy: No Cardiac Surgery: No Cholecystectomy: No Lung Surgery: No Neurologic Surgery: No Orthopedic Surgery: Yes (r knee arthroscopy) - Reproductive History Cervical CA: No Dysfunctional Uterine Bleeding: No Ectopic : No Endometrial CA: No Polycystic Ovaries: No Therapeutic (s) & number: No Tubal Ligation: No - Immunization History Immunization Up to Date: Yes - Psycho Social/Smoking Cessation Hx Smoking Status: No Smoking History: Never smoked Have you smoked in the past 12 months: No Number of Cigarettes Smoked Daily: 0 If you are a former smoker, when did you quit?: 11YRS Information on smoking cessation initiated: No Hx Alcohol Use: No Drug/Substance Use Hx: No Substance Use Type: None Hx Substance Use Treatment: No *Physical Exam - Vital Signs Last Vital Signs Temp Pulse Resp BP Pulse Ox 97.9 F 58 L 16 112/57 L 98 02/22/19 08:26 02/22/19 08:26 02/22/19 08:26 02/22/19 08:26 02/22/19 08:26 ED Treatment Course - LABORATORY CBC & Chemistry Diagram: 02/22/19 10:09 02/22/19 10:09 Medical Decision Making - Medical Decision Making 02/22/19 09:14 A/P: 53-year-old female with constipation. -Given history of metastatic malignancy as well as ventral hernia repair with subsequent injury, will obtain CTAP to rule out partial bowel obstruction -Labs including CBC, CMP, PT/INR, UA -IV fluids -Zofran 8 mg IVPB for nausea -Reevaluate 02/22/19 12:33 Labs reviewed and are unremarkable. 02/22/19 15:50 CT reviewed and interpreted by radiology: Multiple hypodensities in liver and spleen, likely hemangiomas also present on prior CT. No evidence of obstruction or metastases. Patient reexamined and is feeling well. Will trial Colace and mag citrate, and prescribe Colace, senna, and MiraLAX for home. Patient given option of enema and prefers to wait. Follow-up instructions and return precautions reviewed. Patient given copy of CT scan and encouraged to follow up. Discharge - Discharge Information Problems reviewed: Yes Clinical Impression/Diagnosis: Constipation Condition: Stable - Additional Discharge Information Prescriptions: Docusate Sodium [Colace] 100 mg PO TID #60 capsule Polyethylene Glycol 3350 [Miralax (For Daily Use) -] 17 gm PO DAILY #1 bottle Sennosides [Senna] 8.6 mg PO HS #2 tablet - Follow up/Referral Referrals: Kadeem Cohen MD [Primary Care Provider] - - Patient Discharge Instructions - Post Discharge Activity Work/Back to School Note: Back to Work
[2019-02-22] MEDS ORDERED: ONDANSETRON 4 MG/2 ML VIAL IVPB ONE (09:07)
[2019-02-22] MEDS ORDERED: SODIUM CHLORIDE 1,000 ML IV STA (09:08)
[2019-02-22] MEDS ORDERED: ONDANSETRON 4 MG/2 ML VIAL ONE (09:28)
[2019-02-22 09:33] LABS: EPI CELLS 1.3 /HPF (0-5/HPF); HYALINE CASTS 1 /lpf (0-8); URINE APPEARANCE CLEAR; URINE BACTERIA 72.3 /hpf (NEGATIVE); URINE BILIRUBIN NEGATIVE (NEGATIVE); URINE COLOR YELLOW; URINE GLUCOSE (UA) NEGATIVE (NEGATIVE); URINE KETONE NEGATIVE (NEGATIVE); URINE LEUK ESTERASE TRACE (NEGATIVE); URINE NITRITE NEGATIVE (NEGATIVE); URINE PROTEIN NEGATIVE (NEGATIVE); URINE UROBILINOGEN 0.2 mg/dL (0.2-1.0); URINE WBC 1 /hpf (0-5)
[2019-02-22 10:25] LABS: BASO % 0.8 % (0-2.0); EOS % 5.2 % (0-4.5); HEMATOCRIT 39.6 % (32.4-45.2); HEMOGLOBIN 12.8 GM/dL (10.7-15.3); LYMPH % 41.5 % (8-40); MCH 27.4 pg (25.7-33.7); MCHC 32.2 g/dl (32.0-36.0); MEAN CELL VOLUME 85.2 fl (80-96); MEAN PLT VOLUME 9.3 fl (7.5-11.1); MONO % 5.7 % (3.8-10.2); NEUT % 46.8 % (42.8-82.8); PLATELET COUNT 216 K/MM3 (134-434); RBC 4.65 M/mm3 (3.60-5.2); RDW 16.4 % (11.6-15.6); WHITE BLOOD COUNT 5.8 K/mm3 (4.0-10.0)
[2019-02-22 10:33] LABS: INR 1.39 (0.83-1.09); PROTHROMBIN TIME (PATIENT) 16.4 SEC (9.7-13.0)
[2019-02-22 10:44] LABS: ALBUMIN 3.9 g/dl (3.4-5.0); BILIRUBIN,TOTAL 0.5 mg/dL (0.2-1); BLOOD UREA NITROGEN 12.8 mg/dL (7-18); CALCIUM 9.4 mg/dL (8.5-10.1); CREATININE 0.9 mg/dL (0.55-1.3); POTASSIUM 4.3 mmol/L (3.5-5.1); TOT PROT 8.4 g/dl (6.4-8.2)
[2019-02-22 14:24] VITALS: BP 117/64; PULSE 65; TEMP 97.6
[2019-02-22 15:30] LABS: URINE RBC 5.6 /hpf (0-4)
[2019-02-22] MEDS ORDERED: MAGNESIUM CITRATE 300 ML BOTTLE PO ONE (15:36)
[2019-02-22] MEDS ORDERED: DOCUSATE SODIUM 100 MG CAPSULE (FP) PO ONE ×2 (15:36→16:12)
[2019-02-22] MEDS ORDERED: MAGNESIUM CITRATE 300 ML BOTTLE ONE (16:12)
== END 2019-02-22 16:25 | disposition home or self-care (01) ==
LOC: JER 08:16
PROC: 3E033GC Introduction of Other Therapeutic Substance into Peripheral Vein, Percutaneous Approach (ICD-10-PCS; principal; 2019-02-22)
PROC: 3E0337Z Introduction of Electrolytic and Water Balance Substance into Peripheral Vein, Percutaneous Approach (ICD-10-PCS; 2019-02-22)
DX: K59.00 Constipation, unspecified (principal); Z85.05 Personal history of malignant neoplasm of liver; Z85.3 Personal history of malignant neoplasm of breast
CPT/HCPCS: 36415; 74177-TC; 80053; 81003; 85025; 85610; 99283-25; J7030; Q9967

== ENCOUNTER 2019-03-06 11:22 | Emergency (ER) | payer OTHER ==
[2019-03-06 11:57] VITALS: BP 100/65; PULSE 66; TEMP 98.1; BMI 30.9
[2019-03-06] MEDS ORDERED: ACETAMINOPHEN 500 MG TABLET (FP) PO ONE (12:52)
[2019-03-06] MEDS ORDERED: ACETAMINOPHEN 500 MG TABLET (FP) ONE (13:00)
--- NOTE | 2019-03-06 13:43 | PDOC ---
History of Present Illness - General Chief Complaint: Injury Stated Complaint: INJURY Time Seen by Provider: 03/06/19 12:23 History Source: Patient Exam Limitations: No Limitations - History of Present Illness Initial Comments: 03/06/19 13:39 53-year-old female with history of brain and breast CA on Eliquis complains of left leg pain after heavy trays fell on her left leg while at work today. Patient remained standing, denies head strike, LOC, neck pain, back pain or any other complaints. ROS: GENERAL/CONSTITUTIONAL: No fever, chills, weakness, dizziness HEAD, EYES, EARS, NOSE AND THROAT: No changes in vision, No ear pain or discharge, No sore throat CARDIOVASCULAR: No chest pain RESPIRATORY: No shortness of breath or cough GASTROINTESTINAL: No pain, nausea, vomiting, diarrhea or constipation GENITOURINARY: No dysuria MUSCULOSKELETAL: Left lower leg pain, no neck or back pain SKIN: No rash NEUROLOGIC: No headache, vertigo, loss of consciousness, or loss of sensation PE: GENERAL: well-appearing, NAD HEAD: NCAT EYES: Pupils equal, round and reactive to light, sclera anicteric, conjunctiva clear ENT: pharynx: no erythema, no exudate, uvula midline NECK: supple CHEST: nontender RESP: clear, no w/r/r CARDIO: rrr, no m/g/r ABD: +BS, soft, nontender, non distended BACK: no midline spinal ttp, no CVAT EXTREMITIES: Minimal tenderness to palpation over left tib-fib area, no soft tissue swelling, no ecchymosis, normal range of motion, no edema NEUROLOGICAL: Normal speech, normal gait SKIN: Warm, Dry Is this a multiple visit Asthma Patient?: No Past History - Past Medical History Allergies/Adverse Reactions: Allergies Allergy/AdvReac Type Severity Reaction Status Date / Time codeine [Codeine] Allergy Mild Itching Verified 03/06/19 11:53 POWDER GLOVES Allergy Intermediate Rash Uncoded 03/06/19 11:53 Home Medications: Ambulatory Orders Anastrozole [Arimidex -] 1 tab PO DAILY 09/06/17 Apixaban [Eliquis] 1 tab PO BID 02/28/18 Docusate Sodium [Colace] 100 mg PO TID #60 capsule 02/22/19 Polyethylene Glycol 3350 [Miralax (For Daily Use) -] 17 gm PO DAILY #1 bottle Sennosides [Senna] 8.6 mg PO HS #2 tablet 02/22/19 Anemia: No Asthma: No Cancer: Yes (BILATERAL BREAST CA WITH IMPLANTS 2010. brain) Cardiac Disorders: No CVA: No COPD: No CHF: No Dementia: No Diabetes: No GI Disorders: Yes (ACID REFLUX) Disorders: No HTN: No Hypercholesterolemia: No Liver Disease: No Seizures: No Thyroid Disease: No - Surgical History Abdominal Surgery: Yes (BILATERAL INGUNIAL HERNIA REPAIR ~2011) Appendectomy: No Cardiac Surgery: No Cholecystectomy: No Lung Surgery: No Neurologic Surgery: No Orthopedic Surgery: Yes (r knee arthroscopy) - Reproductive History Cervical CA: No Dysfunctional Uterine Bleeding: No Ectopic : No Endometrial CA: No Polycystic Ovaries: No Therapeutic (s) & number: No Tubal Ligation: No - Immunization History Immunization Up to Date: Yes - Psycho Social/Smoking Cessation Hx Smoking Status: No Smoking History: Never smoked Have you smoked in the past 12 months: No Number of Cigarettes Smoked Daily: 0 If you are a former smoker, when did you quit?: 11YRS Hx Alcohol Use: No Drug/Substance Use Hx: No Substance Use Type: None Hx Substance Use Treatment: No *Physical Exam - Vital Signs Last Vital Signs Temp Pulse Resp BP Pulse Ox 98.1 F 66 18 100/65 99 03/06/19 11:53 03/06/19 11:53 03/06/19 11:53 03/06/19 11:53 03/06/19 11:53 ED Treatment Course - RADIOLOGY Radiology Studies Ordered: Category Date Time Status LEG TIB/FIB-LEFT [RAD] Stat Radiology 03/06/19 12:53 Taken - Medications Given in the ED: ED Medications Discontinued Medications Generic Name Dose Route Start Last Admin Trade Name Freq PRN Reason Stop Dose Admin Acetaminophen 1,000 mg 03/06/19 12:52 03/06/19 13:02 Tylenol - PO 03/06/19 12:53 1,000 mg ONCE ONE Administration Medical Decision Making - Medical Decision Making 03/06/19 13:41 53-year-old female complaining of left leg pain status post heavy trays falling onto her leg while at work today. There is. P.o. acetaminophen Left tib-fib x-ray negative for fracture Patient is ambulatory Advised PMD follow-up Discharge - Discharge Information Problems reviewed: Yes Clinical Impression/Diagnosis: Leg pain, left Condition: Stable Disposition: HOME - Admission No - Follow up/Referral Referrals: Kadeem Cohen MD [Primary Care Provider] - - Patient Discharge Instructions Additional Instructions: Take Tylenol 975 mg every 6 hours as needed for pain Follow-up with employee health within 2 to 3 days as needed Return to ER if swelling, worsening pain, calf pain, shortness of breath or worsening symptoms - Post Discharge Activity
== END 2019-03-06 13:48 | disposition home or self-care (01) ==
LOC: JERFT 11:22
DX: M79.662 Pain in left lower leg (principal); W20.8XXA Other cause of strike by thrown, projected or falling object, initial encounter; Y93.89 Activity, other specified; Y92.89 Other specified places as the place of occurrence of the external cause; Y99.0 Civilian activity done for income or pay; Z88.6 Allergy status to analgesic agent; Z91.09 Other allergy status, other than to drugs and biological substances
CPT/HCPCS: 73590-TC-LT-FY; 99281-25

== ENCOUNTER 2019-03-28 09:38 | Emergency (ER) | payer OTHER ==
[2019-03-28 09:50] VITALS: BP 102/56; PULSE 85; TEMP 98; BMI 29.2
[2019-03-28] MEDS ORDERED: IBUPROFEN 600 MG TABLET (FP) PO ONE ×2 (10:12→10:14)
--- NOTE | 2019-03-28 10:52 | PDOC ---
History of Present Illness - General Chief Complaint: Pain Stated Complaint: RT FOOT PAIN Time Seen by Provider: 03/28/19 09:52 History Source: Patient Exam Limitations: No Limitations Past History - Travel Traveled outside of the country in the last 30 days: No Close contact w/someone who was outside of country & ill: No - Past Medical History Allergies/Adverse Reactions: Allergies Allergy/AdvReac Type Severity Reaction Status Date / Time codeine [Codeine] Allergy Mild Itching Verified 03/28/19 09:47 POWDER GLOVES Allergy Intermediate Rash Uncoded 03/28/19 09:47 Home Medications: Ambulatory Orders Anastrozole [Arimidex -] 1 tab PO DAILY 09/06/17 Apixaban [Eliquis] 1 tab PO BID 02/28/18 Anemia: No Asthma: No Cancer: Yes (BILATERAL BREAST CA WITH IMPLANTS 2010. brain) Cardiac Disorders: No CVA: No COPD: No CHF: No Dementia: No Diabetes: No GI Disorders: Yes (ACID REFLUX) Disorders: No HTN: No Hypercholesterolemia: No Liver Disease: No Seizures: No Thyroid Disease: No - Surgical History Abdominal Surgery: Yes (BILATERAL INGUNIAL HERNIA REPAIR ~2011) Appendectomy: No Cardiac Surgery: No Cholecystectomy: No Lung Surgery: No Neurologic Surgery: No Orthopedic Surgery: Yes (r knee arthroscopy) - Reproductive History Cervical CA: No Dysfunctional Uterine Bleeding: No Ectopic : No Endometrial CA: No Polycystic Ovaries: No Therapeutic (s) & number: No Tubal Ligation: No - Immunization History Immunization Up to Date: Yes - Psycho Social/Smoking Cessation Hx Smoking Status: No Smoking History: Unknown if ever smoked Have you smoked in the past 12 months: No Number of Cigarettes Smoked Daily: 0 If you are a former smoker, when did you quit?: 11YRS Hx Alcohol Use: No Drug/Substance Use Hx: No Substance Use Type: None Hx Substance Use Treatment: No Review of Systems - Review of Systems Able to Perform ROS?: Yes Comments:: 03/28/19 10:11 CONSTITUTIONAL: Absent: fever, chills, diaphoresis, generalized weakness, malaise, loss of appetite HEENT: Absent: rhinorrhea, nasal congestion, throat pain, throat swelling, difficulty swallowing, mouth swelling, ear pain, eye pain, visual Changes CARDIOVASCULAR: Absent: chest pain, loss of consciousness, palpitations, irregular heart rate, peripheral edema RESPIRATORY: Absent: cough, shortness of breath, dyspnea with exertion, orthopnea, wheezing, stridor, hemoptysis GASTROINTESTINAL: Absent: abdominal pain, abdominal distension, nausea, vomiting, diarrhea, constipation, melena, hematochezia GENITOURINARY: Absent: dysuria, frequency, urgency, hesitancy, hematuria, flank pain, genital pain MUSCULOSKELETAL: Present: R ankle pain/foot pain Absent: myalgia, arthralgia, joint swelling SKIN: Absent: rash, itching, pallor NEUROLOGIC: Absent: headache, focal weakness or paresthesias, dizziness, unsteady gait, seizure, mental status changes, bladder or bowel incontinence PSYCHIATRIC: Absent: anxiety, depression, suicidal or homicidal ideation, hallucinations. Is the patient limited Latvian proficient: No *Physical Exam - Vital Signs Last Vital Signs Temp Pulse Resp BP Pulse Ox 98 F 85 18 102/56 L 100 03/28/19 09:48 03/28/19 09:48 03/28/19 09:48 03/28/19 09:48 03/28/19 09:48 - Physical Exam 03/28/19 10:11 GENERAL: Well developed, well nourished. Awake and alert. No acute distress. MUSCULOSKELETAL Normal range of motion at all joints. No bony deformities or tenderness. No CVA tenderness. EXTREMITIES: TTP over the dorsal aspect of the R foot over the 5th through 3rd metatarsals. Pt also with R ankle pain. No cyanosis. No clubbing. No edema. No calf tenderness. SKIN: Warm and dry. Normal capillary refill. No rashes. No jaundice. NEUROLOGICAL: Alert, awake, appropriate. Cranial nerves 2-12 intact. No deficits to light touch and temperature in face, upper extremities and lower extremities. No motor deficits in the in face, upper extremities and lower extremities. Normoreflexic in the upper and lower extremities. Normal speech. Toes are down- going bilaterally. Gait is normal without ataxia. PSYCHIATRIC: Cooperative. Good eye contact. Appropriate mood and affect. Medical Decision Making - Medical Decision Making 03/28/19 19:21 The patient is a 53 y/o F with PMH of breast ca with brain mets, PE, presents to the ER for R foot pain. The patient states that she had a cart run over her foot at work yesterday. She states that the cart was heavy. She is also noted some swelling to her foot. She states she had no foot or leg pain prior to the incident. Denies numbness and tingling weakness the affected extremity. A/P: Foot pain On exam there is some swelling over the dorsal aspect of the right foot over the fifth or third metatarsals. Tenderness to palpation as well. No calf pain. X-ray shows no fractures. Likely pain due to swelling after the trauma. We will recommend supportive treatment and primary care follow-up. DC home I discussed the physical exam findings, ancillary test results and final diagnoses with the patient. I answered all of the patient's questions. The patient was satisfied with the care received and felt comfortable with the discharge plan and treatment plan. The Patient agrees to follow up with the primary care physician/specialist within 24-72 hours. Return precautions were given. Discharge - Discharge Information Problems reviewed: Yes Clinical Impression/Diagnosis: Right leg pain Condition: Stable Disposition: HOME - Admission No - Follow up/Referral Referrals: Kadeem Cohen MD [Primary Care Provider] - - Patient Discharge Instructions Patient Printed Discharge Instructions: DI for Leg Pain Additional Instructions: You were evaluated for your leg pain today It is most likely d/t getting hit with the cart yesterday Take Tylenol and Motrin as directed for pain Keep the foot elevated to help reduce the swelling. You may wear the Chin wrap to help with your pain. Your x-rays were negative for fracture. Follow-up with orthopedics in 1 week if your symptoms are improving. Return to the ER for any new or worsening symptoms. - Post Discharge Activity Work/Back to School Note: Back to Work
== END 2019-03-28 11:57 | disposition home or self-care (01) ==
LOC: JERFT 09:38
DX: M79.671 Pain in right foot (principal); W20.8XXA Other cause of strike by thrown, projected or falling object, initial encounter; Y93.89 Activity, other specified; Y92.238 Other place in hospital as the place of occurrence of the external cause; Y99.0 Civilian activity done for income or pay; Z85.3 Personal history of malignant neoplasm of breast; Z85.841 Personal history of malignant neoplasm of brain; Z98.82 Breast implant status; Z88.5 Allergy status to narcotic agent; Z91.048 Other nonmedicinal substance allergy status
CPT/HCPCS: 73590-TC-RT-FY; 73610-TC-RT-FY; 73630-TC-RT-FY; 99283-25

== ENCOUNTER 2019-09-18 12:22 | Emergency (ER) | payer OTHER ==
[2019-09-18 12:34] VITALS: BMI 30.9
[2019-09-18] MEDS ORDERED: LIDOCAINE VISCOUS 2% ORAL/TOP 20 ML UNIT-DOSE CUP MM ONE (13:36)
[2019-09-18] MEDS ORDERED: FAMOTIDINE 20 MG/50 ML IVPB 20 MG/50 ML MG IVPB ONE ×2 (13:36→13:54)
[2019-09-18] MEDS ORDERED: MAG HYDROX/AL HYDROX/SIMETH 30 ML UNIT-DOSE CUP PO ONE (13:36)
[2019-09-18] MEDS ORDERED: MAG HYDROX/AL HYDROX/SIMETH 30 ML UNIT-DOSE CUP ONE (13:54)
[2019-09-18] MEDS ORDERED: LIDOCAINE VISCOUS 2% ORAL/TOP 20 ML UNIT-DOSE CUP ONE (13:54)
--- NOTE | 2019-09-18 14:07 | PDOC ---
History of Present Illness - General Stated Complaint: STOMACH PAIN Time Seen by Provider: 09/18/19 12:22 - History of Present Illness Initial Comments: Pt is a 53yo F with PMH brain and breast cancer s/p resection and b/l mastectomy and chemotherapy, hx of DVT(?) on Eliquis, COVID+ in July, hx of acid reflux, who presents with abdominal itchiness. Describes symptoms as itchiness as midline from mouth to umbilical region, denies pain. Began 1 week ago, with worsening over the past 2 days, intermittent, occuring after eating, with variable duration. States that it feels different than her past episodes of reflux. Is worse with spicy foods and dairy. Denies any relieving factors. Denies recent NSAID use. Denies f/c, chest pain, SOB, abdominal pain, n/v, diarrhea, constipation, melena, hematochezia. LMP >10 years ago. Last colonoscopy 5 years ago, normal per patient report. PCP: Vicki PMH: see HPI PSHx: see HPI Meds: Eliquis, Anastrozole All: codeine, powdered gloves Social: denies tobacco, etoh, illicit drug use Review of Systems CONSTITUTIONAL:denies fever, chills, diaphoresis, generalized weakness, malaise, loss of appetite HEENT:denies rhinorrhea, nasal congestion, sore throat, ear pain, eye pain, visual Changes CARDIOVASCULAR:denies chest pain, syncope, palpitations, lightheadedness, peripheral edema RESPIRATORY:denies cough, shortness of breath, wheezing, hemoptysis GASTROINTESTINAL: denies abdominal pain, nausea, vomiting, diarrhea, constipation, melena, hematochezia GENITOURINARY:denies dysuria, frequency, urgency, hesitancy, hematuria, flank pain MUSCULOSKELETAL:denies myalgia, arthralgia HEMATOLOGIC/IMMUNOLOGIC:denies easy bleeding, easy bruising ENDOCRINE: denies unexplained weight gain, unexplained weight loss NEUROLOGIC:denies headache, loss of consciousness, focal weakness or paresthesias, dizziness, unsteady gait, seizure, mental status changes, bladder or bowel incontinence SKIN:denies rash, itching, pallor PSYCHIATRIC:denies anxiety, depression, suicidal or homicidal ideation, hallucinations. Physical Exam General: awake, alert, fully oriented, in no acute distress, well developed, well nourished Head: normocephalic, atraumatic Eyes: PERRL, EOMI, anicteric sclera, conjunctiva clear ENT: hearing grossly normal, nares patent, oropharynx clear without exudates. No nasal congestion Moist mucous membranes Neck: supple, normal ROM Lung: equal breath sounds b/l, CTA b/l, no crackles, wheezes; no distress, speaks full sentences Heart: RRR, normal S1, S2, no murmurs, rubs, gallops Abdomen: soft, non tender, normoactive bowel sounds, no guarding, rebound, masses Extremities: no edema, no erythema or tenderness, DP/PT pulses 2+ and symmetric, no clubbing, cyanosis Neuro: CN2-12 grossly intact, moves all extremities, normal speech, normal gait, sensation intact Skin: warm, dry, no rashes or lesions noted Past History - Medical History Allergies/Adverse Reactions: Allergies Allergy/AdvReac Type Severity Reaction Status Date / Time latex Allergy Severe Difficulty Verified 09/18/19 12:30 Breathing codeine [Codeine] Allergy Mild Itching Verified 09/18/19 12:30 POWDER GLOVES Allergy Intermediate Rash Uncoded 09/18/19 12:30 Home Medications: Ambulatory Orders Anastrozole [Arimidex -] 1 tab PO DAILY 09/06/17 Apixaban [Eliquis] 1 tab PO BID 02/28/18 Famotidine [Pepcid -] 20 mg PO DAILY #21 tablet 06/11/19 Famotidine [Pepcid -] 20 mg PO DAILY #30 tablet 06/11/19 Ondansetron [Zofran *Odt*] 4 mg SL TID PRN #21 od.tablet 06/11/19 Ondansetron [Zofran *Odt*] 4 mg SL TID PRN #21 od.tablet 06/11/19 Famotidine [Pepcid] 20 mg PO DAILY 21 Days #21 tablet 09/18/19 Anemia: No Asthma: No Cancer: Yes (B/l Beast Ca w/ implants (2010); Brain mets (both resolved)) Cardiac Disorders: No CVA: No COPD: No CHF: No Dementia: No Diabetes: No GI Disorders: Yes (GERD) Disorders: No HTN: No Hypercholesterolemia: No Liver Disease: No Seizures: No Thyroid Disease: No - Surgical History Abdominal Surgery: Yes (B/L Inguinal Hernia Repair (2012)) Appendectomy: No Cardiac Surgery: No Cholecystectomy: No Lung Surgery: No Neurologic Surgery: No Orthopedic Surgery: Yes (R knee arthroscopy) - Reproductive History Is Patient Now?: No Cervical CA: No Dysfunctional Uterine Bleeding: No Ectopic : No Endometrial CA: No Polycystic Ovaries: No Therapeutic (s) & number: No Tubal Ligation: No - Immunization History Immunization Up to Date: Yes - Psycho-Social/Smoking History Smoking Status: No Smoking History: Never smoked Have you smoked in the past 12 months: No Number of Cigarettes Smoked Daily: 0 If you are a former smoker, when did you quit?: 11YRS Information on smoking cessation initiated: No - Substance Abuse Hx (Audit-C & DAST Scrn) How often the patient has a drink containing alcohol: Never Score: In Men: 4 or > Positive; In Women: 3 or > Positive: 0 Screen Result (Pos requires Nsg. Audit-10AR): Negative In the last yr the pt used illegal drug/Rx for NonMed reason: No Score: Yes response is considered Positive: 0 Screen Result (Positive result requires Nsg. DAST-10): Negative Review of Systems - Review of Systems Able to Perform ROS?: Yes *Physical Exam - Vital Signs Last Vital Signs Temp Pulse Resp BP Pulse Ox 98.5 F 67 17 111/67 100 09/18/19 12:27 09/18/19 12:27 09/18/19 12:27 09/18/19 12:27 09/18/19 12:27 ED Treatment Course - LABORATORY CBC & Chemistry Diagram: 09/18/19 14:15 09/18/19 14:15 Medical Decision Making - Medical Decision Making Pt is a 53yo F with PMH brain and breast cancer s/p resection and b/l mastectomy and chemotherapy, hx of DVT(?) on Eliquis, COVID+ in July, hx of acid reflux, who presents with abdominal discomfort. Vital Signs Period Temp Pulse Resp BP Sys/Vasquez Pulse Ox Last 24 Hr 98.5 F 67 17 111/67 100 DDx: peptic ulcer, gastritis, GERD, ACS, ischemic colitis Plan: labs, EKG, Maalox/Pepcid/Viscous Lidocaine 09/18/19 14:31 EKG: HR 57bpm, sinus bradycardia, MO 170ms, QRS 94ms, QTc 408ms, no ST changes 09/18/19 14:38 Pt reports improvement in symptoms following GI cocktail 09/18/19 15:53 Labs: no leukocytosis, no anemia, electrolytes WNL, no JOSÉ MIGUEL, troponin WNL, UA - LE, -nitrites Laboratory Tests 09/18/19 09/18/19 09/18/19 14:15 14:15 14:15 WBC 7.1 RBC 4.03 Hgb 11.4 Hct 35.3 MCV 87.6 MCH 28.3 MCHC 32.3 RDW 14.9 Plt Count 224 MPV 10.2 D Absolute Neuts (auto) 3.5 Neutrophils % 49.9 Lymphocytes % 40.0 D Monocytes % 4.9 Eosinophils % 4.2 Basophils % 1.0 Nucleated RBC % 0 PT with INR 13.60 H INR 1.15 H Sodium 143 Potassium 4.2 Chloride 110 H Carbon Dioxide 27 Anion Gap 6 L BUN 12.8 Creatinine 1.1 Est GFR (CKD-EPI)AfAm 65.45 Est GFR (CKD-EPI)NonAf 56.47 Random Glucose 74 Lactic Acid Calcium 9.8 Total Bilirubin 0.4 AST 23 ALT 24 Alkaline Phosphatase 122 H Troponin I < 0.02 Total Protein 8.4 H Albumin 4.1 Lipase 80 Urine Color Urine Appearance Urine pH Ur Specific Shelton Urine Protein Urine Glucose (UA) Urine Ketones Urine Blood Urine Nitrite Urine Bilirubin Urine Urobilinogen Ur Leukocyte Esterase 09/18/19 09/18/19 14:15 14:30 WBC RBC Hgb Hct MCV MCH MCHC RDW Plt Count MPV Absolute Neuts (auto) Neutrophils % Lymphocytes % Monocytes % Eosinophils % Basophils % Nucleated RBC % PT with INR INR Sodium Potassium Chloride Carbon Dioxide Anion Gap BUN Creatinine Est GFR (CKD-EPI)AfAm Est GFR (CKD-EPI)NonAf Random Glucose Lactic Acid 0.7 Calcium Total Bilirubin AST ALT Alkaline Phosphatase Troponin I Total Protein Albumin Lipase Urine Color Yellow Urine Appearance Clear Urine pH 6.5 Ur Specific Shel[place] 1.014 Urine Protein Negative Urine Glucose (UA) Negative Urine Ketones Negative Urine Blood Negative Urine Nitrite Negative Urine Bilirubin Negative Urine Urobilinogen 0.2 Ur Leukocyte Esterase Negative Patient stable for discharge. pain controlled. Informed of all lab results. Given follow up instructions and strict return precautions. Patient expressed understanding and agree to plan Disposition Discharge to home Discharge - Discharge Information Problems reviewed: Yes Clinical Impression/Diagnosis: Abdominal pain Qualifiers: Abdominal location: epigastric Qualified Code(s): R10.13 - Epigastric pain Condition: Stable Disposition: HOME - Admission No - Additional Discharge Information Prescriptions: Famotidine [Pepcid] 20 mg PO DAILY 21 Days #21 tablet - Follow up/Referral Referrals: Kadeem Cohen MD [Primary Care Provider] - Jj Shaikh MD [Staff Physician] - - Patient Discharge Instructions Patient Printed Discharge Instructions: DI for Gastroesophageal Reflux Disease (GERD), DI for Gastric Ulcer, GERD Diet Additional Instructions: You came into the ER abdominal discomfort. In the ED, you were evaluated with labs. Your results were normal - you did not have any signs of infection, anemia. Your electrolytes were within normal levels. Your symptoms improved after we gave you Pepcid, Maalox, and viscous lidocaine. You do not appear to be an acute need for immediate hospitalization. You were advised to follow up with your primary care doctor within 1 week. You were given a referral to Dr. Shaikh, reel cutter. Call today to schedule appointment You were given a prescription for Pepcid. You can take once per day as needed. Come back to the ER immediately with any new or worsening concerns, such as high fevers, severe pain, inability to tolerate food or water intake, constant nausea and vomiting. Thank you for coming to the [facility] ER. We hope you feel better soon! - Post Discharge Activity Work/Back to School Note: Back to Work
[2019-09-18 15:07] LABS: EOS % 4.2 % (0-4.5); HEMATOCRIT 35.3 % (32.4-45.2); HEMOGLOBIN 11.4 GM/dL (10.7-15.3); MCH 28.3 pg (25.7-33.7); MCHC 32.3 g/dl (32.0-36.0); MEAN CELL VOLUME 87.6 fl (80-96); MEAN PLT VOLUME 10.2 fl (7.5-11.1); MONO % 4.9 % (3.8-10.2); NEUT % 49.9 % (42.8-82.8); PLATELET COUNT 224 K/MM3 (134-434); RBC 4.03 M/mm3 (3.60-5.2); RDW 14.9 % (11.6-15.6); WHITE BLOOD COUNT 7.1 K/mm3 (4.0-10.0)
[2019-09-18 15:28] LABS: ALBUMIN 4.1 g/dl (3.4-5.0); ALK PHOS 122 U/L (45-117); ANION GAP 6 MMOL/L (8-16); BILIRUBIN,TOTAL 0.4 mg/dL (0.2-1); BLOOD UREA NITROGEN 12.8 mg/dL (7-18); CALCIUM 9.8 mg/dL (8.5-10.1); CHLORIDE 110 mmol/L (98-107); CO2 27 mmol/L (21-32); CREATININE 1.1 mg/dL (0.55-1.3); GLUCOSE,RANDOM 74 mg/dL (74-106); LIPASE 80 U/L (73-393); POTASSIUM 4.2 mmol/L (3.5-5.1); SGOT/AST 23 U/L (15-37); SGPT/ALT 24 U/L (13-61); SODIUM 143 mmol/L (136-145); TOT PROT 8.4 g/dl (6.4-8.2)
[2019-09-18 15:31] LABS: INR 1.15 (0.83-1.09); PROTHROMBIN TIME (PATIENT) 13.6 SEC (9.7-13.0)
--- NOTE | 2019-09-18 15:34 | PDOC ---
Documentation entered by Joanna Mayo SCRIBE, acting as scribe for Mateus Garcia MD. Mateus Garcia MD: This documentation has been prepared by the Gael maloney Brenda, SCRIBE, under my direction and personally reviewed by me in its entirety. I confirm that the documentation accurately reflects all work, treatment, procedures, and medical decision making performed by me. Attending Attestation - Resident Resident Name: VilchisLawanda - ED Attending Attestation I have performed the following: I have examined & evaluated the patient, The case was reviewed & discussed with the resident, I agree w/resident's findings & plan, Exceptions are as noted - HPI HPI: 09/18/19 14:07 The patient is a 53 year old female with a significant PMH of who presents to the emergency department with The patient denies chest pain, shortness of breath, headache and dizziness. Denies fever, chills, nausea, vomiting, diarrhea and constipation. Denies dysuria, frequency, urgency and hematuria. Allergies: NKA Past surgical history: Social history: No reported hx of tobacco use, alcohol use or illicit drug use. PCP: - Physicial Exam PE: Patient is awake and alert, well-appearing, in no distress Normocephalic, atraumatic PERRLA, EOMI, no scleral icterus mmm cta rrr Abdomen is soft, nontender, nondistended - Medical Decision Making 09/18/19 15:33 53-year-old female with multiple comorbidities, history of metastatic breast CA on Eliquis presents with epigastric discomfort radiating to the chest and neck, exacerbated postprandially for approximately a period of 1 week. In the ER, patient is awake and alert, nontoxic-appearing. Serial abdominal exams reveal no significant focal tenderness. Patient improved after GI cocktail. I do not suspect ACS or PE at this time. Patient tolerates p.o. Will discharge Discharge - Discharge Information Problems reviewed: Yes Clinical Impression/Diagnosis: Abdominal pain Qualifiers: Abdominal location: epigastric Qualified Code(s): R10.13 - Epigastric pain Condition: Stable Disposition: HOME - Additional Discharge Information Prescriptions: Famotidine [Pepcid] 20 mg PO DAILY 21 Days #21 tablet - Follow up/Referral Referrals: Kadeem Cohen MD [Primary Care Provider] - Jj Shaikh MD [Staff Physician] - - Patient Discharge Instructions Patient Printed Discharge Instructions: DI for Gastroesophageal Reflux Disease (GERD), DI for Gastric Ulcer, GERD Diet Additional Instructions: You came into the ER abdominal discomfort. In the ED, you were evaluated with labs. Your results were normal - you did not have any signs of infection, anemia. Your electrolytes were within normal levels. Your symptoms improved after we gave you Pepcid, Maalox, and viscous lidocaine. You do not appear to be an acute need for immediate hospitalization. You were advised to follow up with your primary care doctor within 1 week. You were given a referral to Dr. Shaikh, air support operations operator. Call today to schedule appointment You were given a prescription for Pepcid. You can take once per day as needed. Come back to the ER immediately with any new or worsening concerns, such as high fevers, severe pain, inability to tolerate food or water intake, constant nausea and vomiting. Thank you for coming to the [facility] ER. We hope you feel better soon! - Post Discharge Activity Work/Back to School Note: Back to Work
[2019-09-18 15:47] LABS: PH,URINE 6.5 (5.0-8.0); URINE APPEARANCE CLEAR; URINE BILIRUBIN NEGATIVE (NEGATIVE); URINE COLOR YELLOW; URINE GLUCOSE (UA) NEGATIVE (NEGATIVE); URINE KETONE NEGATIVE (NEGATIVE); URINE LEUK ESTERASE NEGATIVE (NEGATIVE); URINE NITRITE NEGATIVE (NEGATIVE); URINE PROTEIN NEGATIVE (NEGATIVE); URINE UROBILINOGEN 0.2 mg/dL (0.2-1.0)
--- NOTE | 2019-09-18 15:58 | EKG ---
Test Reason : Blood Pressure : / mmHG Vent. Rate : 057 BPM Atrial Rate : 057 BPM P-R Int : 170 ms QRS Dur : 094 ms QT Int : 420 ms P-R-T Axes : 040 026 039 degrees QTc Int : 408 ms POOR DATA QUALITY, INTERPRETATION MAY BE ADVERSELY AFFECTED SINUS BRADYCARDIA OTHERWISE NORMAL ECG WHEN COMPARED WITH ECG OF 04-DEC-2017 14:00, BORDERLINE CRITERIA FOR INFERIOR INFARCT ARE NO LONGER PRESENT Confirmed by Antonio Ray ([id number]) on 09/18/2019 3:58:42 PM Referred By: Confirmed By:Antonio Ray
[2019-09-18 16:20] VITALS: BP 110/65; PULSE 65; TEMP 98.1
== END 2019-09-18 16:20 | disposition home or self-care (01) ==
LOC: JER 12:22
PROC: 3E033GC Introduction of Other Therapeutic Substance into Peripheral Vein, Percutaneous Approach (ICD-10-PCS; principal; 2019-09-18)
DX: R10.13 Epigastric pain (principal)
CPT/HCPCS: 36415; 80053; 81003; 83605; 83690; 84484; 85025; 85610; 87086; 93005; 93010; 99284-25

== ENCOUNTER 2021-05-20 04:19 | Day surgery (SDC) | payer OTHER ==
[2021-05-17 15:57] VITALS: BMI 34.0
[2021-05-20 08:35] VITALS: TEMP 98.4
[2021-05-20 10:32] VITALS: BP 114/65; PULSE 76
== END 2021-05-20 09:27 | disposition home or self-care (01) ==
LOC: JASU-ENDO 04:19
PROVIDERS: ATTEND Internal Medicine Gastroenterology
PROC: 0DBN8ZX Excision of Sigmoid Colon, Via Natural or Artificial Opening Endoscopic, Diagnostic (ICD-10-PCS; 2021-05-20)
PROC: 0DBC8ZX Excision of Ileocecal Valve, Via Natural or Artificial Opening Endoscopic, Diagnostic (ICD-10-PCS; principal; 2021-05-20 08:00)
DX: Z12.11 Encounter for screening for malignant neoplasm of colon (principal); K57.30 Diverticulosis of large intestine without perforation or abscess without bleeding; K64.8 Other hemorrhoids; K63.9 Disease of intestine, unspecified; Z85.3 Personal history of malignant neoplasm of breast
CPT/HCPCS: 88305-TC

== ENCOUNTER 2021-06-03 04:29 | Day surgery (SDC) | payer OTHER ==
[2021-06-01 11:11] VITALS: BMI 34.0
[2021-06-03 11:39] LABS: BASO % 0.5 % (0-2.0); EOS % 4.6 % (0-4.5); HEMATOCRIT 38.1 % (32.4-45.2); HEMOGLOBIN 11.9 GM/dL (10.7-15.3); MCH 26.5 pg (25.7-33.7); MCHC 31.2 g/dl (32.0-36.0); MEAN CELL VOLUME 84.8 fl (80-96); MEAN PLT VOLUME 8.9 fl (7.5-11.1); MONO % 5.9 % (3.8-10.2); PLATELET COUNT 234 10^3/uL (134-434); RBC 4.49 M/mm3 (3.60-5.2); RDW 16.5 % (11.6-15.6)
[2021-06-03 11:44] LABS: INR 1.03 (0.83-1.09); PROTHROMBIN TIME (PATIENT) 11.9 SEC (9.7-13.0)
[2021-06-03 11:47] LABS: ACTIVATED PTT 32.2 SECONDS (25.2-36.5)
[2021-06-03 11:59] LABS: ALBUMIN 3.6 g/dl (3.4-5.0); CALCIUM 9.4 mg/dL (8.5-10.1)
[2021-06-03 12:00] LABS: BLOOD UREA NITROGEN 11.1 mg/dL (7-18)
[2021-06-03 12:02] LABS: CREATININE 0.9 mg/dL (0.55-1.3)
[2021-06-03 12:04] LABS: BILIRUBIN,TOTAL 0.4 mg/dL (0.2-1); TOT PROT 7.6 g/dl (6.4-8.2)
[2021-06-03] MEDS: PANTOPRAZOLE SODIUM 40 MG VIAL IVPUSH SCH (12:40)
[2021-06-03] MEDS: DEXTROSE 5%-0.45% SALINE 1,000 ML IV SCH (13:25)
[2021-06-03] MEDS ORDERED: ONDANSETRON 4 MG/2 ML VIAL IVPUSH ONE (13:31)
[2021-06-03] MEDS ORDERED: ONDANSETRON 4 MG/2 ML VIAL ONE (13:41)
[2021-06-03 16:46] LABS: HEMATOCRIT 37.2 % (32.4-45.2); HEMOGLOBIN 11.7 GM/dL (10.7-15.3); MCH 26.6 pg (25.7-33.7); MCHC 31.4 g/dl (32.0-36.0); MEAN CELL VOLUME 84.8 fl (80-96); MEAN PLT VOLUME 9.3 fl (7.5-11.1); PLATELET COUNT 231 10^3/uL (134-434); RBC 4.39 M/mm3 (3.60-5.2); RDW 15.8 % (11.6-15.6); WHITE BLOOD COUNT 7.6 K/mm3 (4.0-10.0)
[2021-06-04 08:36] LABS: HEMOGLOBIN 11.1 GM/dL (10.7-15.3); MCH 26.8 pg (25.7-33.7); MCHC 31.7 g/dl (32.0-36.0); MEAN CELL VOLUME 84.5 fl (80-96); PLATELET COUNT 210 10^3/uL (134-434); RBC 4.14 M/mm3 (3.60-5.2); RDW 16.5 % (11.6-15.6); WHITE BLOOD COUNT 5.6 K/mm3 (4.0-10.0)
[2021-06-04 09:04] LABS: CALCIUM 8.8 mg/dL (8.5-10.1)
[2021-06-04 09:05] LABS: BLOOD UREA NITROGEN 6.2 mg/dL (7-18)
[2021-06-04 09:08] LABS: CREATININE 0.9 mg/dL (0.55-1.3)
[2021-06-04 09:09] LABS: TOT PROT 6.8 g/dl (6.4-8.2)
[2021-06-04 09:10] LABS: BILIRUBIN,TOTAL 0.5 mg/dL (0.2-1)
[2021-06-04] MEDS ORDERED: ANASTROZOLE 1 MG TABLET PO SCH (10:00)
[2021-06-04] MEDS: DEXTROSE 5%-0.45% SALINE 1,000 ML IV SCH (10:00)
[2021-06-04] MEDS: PANTOPRAZOLE SODIUM 40 MG VIAL IVPUSH SCH (10:02)
[2021-06-04 13:58] VITALS: BP 120/78; PULSE 78; TEMP 98
[2021-06-05] MEDS ORDERED: PANTOPRAZOLE 40 MG TABLET PO SCH (10:00)
== END 2021-06-04 14:33 | disposition home or self-care (01) ==
LOC: JASU-ENDO 04:29 → SUATTDRO 04:29 → JASUSAT 04:29 → J8W 14:14 → JASUSAT 06-04 14:33
PROVIDERS: ATTEND Internal Medicine
PROC: 0DB28ZX Excision of Middle Esophagus, Via Natural or Artificial Opening Endoscopic, Diagnostic (ICD-10-PCS; principal; 2021-06-03 08:45)
DX: K21.00 Gastro-esophageal reflux disease with esophagitis, without bleeding (principal); K44.9 Diaphragmatic hernia without obstruction or gangrene; D13.0 Benign neoplasm of esophagus
CPT/HCPCS: 36415; 80053; 85025; 85027; 85610; 85730; 86850; 86900; 86901; 88305-TC

== ENCOUNTER 2021-08-10 04:41 | Day surgery (SDC) | payer OTHER ==
[2021-08-10 07:21] VITALS: BMI 34.0
[2021-08-10 08:43] VITALS: TEMP 97
[2021-08-10 10:30] VITALS: BP 117/93; PULSE 64
== END 2021-08-10 10:00 | disposition home or self-care (01) ==
LOC: JASU-ENDO 04:41
PROVIDERS: ATTEND Internal Medicine Gastroenterology
PROC: 0DB38ZX Excision of Lower Esophagus, Via Natural or Artificial Opening Endoscopic, Diagnostic (ICD-10-PCS; principal; 2021-08-10 08:00)
DX: K21.00 Gastro-esophageal reflux disease with esophagitis, without bleeding (principal); K44.9 Diaphragmatic hernia without obstruction or gangrene
CPT/HCPCS: 88305-TC; 88312-TC

== ENCOUNTER 2021-11-02 05:17 | Day surgery (SDC) | payer OTHER ==
[2021-11-02 07:29] VITALS: BMI 34.3
[2021-11-02 09:07] VITALS: BP 143/83; PULSE 66; RESP 18; TEMP 97
== END 2021-11-02 09:15 | disposition home or self-care (01) ==
LOC: JASU-ENDO 05:17
PROVIDERS: ATTEND Internal Medicine Gastroenterology
PROC: 0DB38ZX Excision of Lower Esophagus, Via Natural or Artificial Opening Endoscopic, Diagnostic (ICD-10-PCS; principal; 2021-11-02 08:00)
DX: K21.00 Gastro-esophageal reflux disease with esophagitis, without bleeding (principal); K44.9 Diaphragmatic hernia without obstruction or gangrene
CPT/HCPCS: 88305-TC

== ENCOUNTER 2021-11-23 10:06 | Emergency (ER) | payer OTHER ==
[2021-11-23 10:36] VITALS: BP 107/63; PULSE 58; RESP 20; TEMP 98.3; BMI 34.0
[2021-11-23 11:48] LABS: BASO % 0.9 % (0-2.0); EOS % 6.1 % (0-4.5); HEMATOCRIT 37.4 % (32.4-45.2); HEMOGLOBIN 11.8 GM/dL (10.7-15.3); LYMPH % 40.4 % (8-40); MCH 26.7 pg (25.7-33.7); MCHC 31.6 g/dl (32.0-36.0); MEAN CELL VOLUME 84.5 fl (80-96); MEAN PLT VOLUME 9.7 fl (7.5-11.1); MONO % 6.2 % (3.8-10.2); NEUT % 46.4 % (42.8-82.8); PLATELET COUNT 213 10^3/uL (134-434); RBC 4.42 M/mm3 (3.60-5.2); RDW 16.7 % (11.6-15.6); WHITE BLOOD COUNT 6.1 K/mm3 (4.0-10.0)
[2021-11-23 12:16] LABS: CALCIUM 9.3 mg/dL (8.5-10.1)
[2021-11-23 12:17] LABS: ALBUMIN 3.5 g/dl (3.4-5.0); BLOOD UREA NITROGEN 13.1 mg/dL (7-18)
[2021-11-23 12:20] LABS: CREATININE 0.9 mg/dL (0.55-1.3)
[2021-11-23 12:22] LABS: BILIRUBIN,TOTAL 0.3 mg/dL (0.2-1); TOT PROT 7.5 g/dl (6.4-8.2)
== END 2021-11-23 14:59 | disposition home or self-care (01) ==
LOC: JER 10:06
DX: L81.9 Disorder of pigmentation, unspecified (principal)
CPT/HCPCS: 36415; 80053; 85025; 93970-TC; 99284-25

== ENCOUNTER 2022-03-23 16:32 | Emergency (ER) | payer OTHER ==
[2022-03-23 16:45] VITALS: BP 124/84; PULSE 96; RESP 20; TEMP 99; BMI 34.0
[2022-03-23 19:02] LABS: THROAT:GRP A STREP NOT DETECTED (NOTDETECTED)
== END 2022-03-23 18:43 | disposition home or self-care (01) ==
LOC: JERFT 16:32
DX: J01.10 Acute frontal sinusitis, unspecified (principal); J06.9 Acute upper respiratory infection, unspecified
CPT/HCPCS: 0241U-QW; 71046-TC-FY; 87651; 99284-25

== ENCOUNTER 2022-10-05 08:40 | Emergency (ER) | payer OTHER ==
[2022-10-05 08:53] VITALS: BP 98/63; PULSE 58; RESP 18; TEMP 98; BMI 33.5
== END 2022-10-05 10:21 | disposition home or self-care (01) ==
LOC: JER 08:40 → JERFT 08:40
DX: H00.011 Hordeolum externum right upper eyelid (principal); H57.11 Ocular pain, right eye; H02.841 Edema of right upper eyelid
CPT/HCPCS: 99283-25